=== PATIENT | male | born 1955 | race Caucasian/White ===

== ENCOUNTER 2017-12-23 16:23 | Emergency (ER) | payer MEDICAID ==
[~2017-12-23] VITALS: Ht 175.3 cm; Wt 97.7 kg
[~2017-12-23 16:23] MED LIST: CITA40TA22 PO; CYCL-1 PO; GABA-532 PO; HYDR-3965 PO; LISI1TAB13 PO; LOVA20TA2 PO; METF10002 PO; METH4TAB3 PO; METH500T PO; RANI-366 PO
[2017-12-23] MEDS ORDERED: ketorolac trometh. 30mg/ml inj. IM ONE (16:45)
[2017-12-23 17:44] VITALS: BP 175/100
== END 2017-12-23 17:30 | disposition home or self-care (01) ==
LOC: ER 16:23
DX: M54.5 Low back pain (principal); E78.00 Pure hypercholesterolemia, unspecified; M19.90 Unspecified osteoarthritis, unspecified site; G89.29 Other chronic pain; Z98.890 Other specified postprocedural states; Z79.899 Other long term (current) drug therapy
CPT/HCPCS: 96372; 99283; J1885

== ENCOUNTER 2017-12-26 21:10 | Emergency (ER) | payer MEDICAID ==
[~2017-12-26] VITALS: Ht 175.3 cm; Wt 90.5 kg
[2017-12-26 21:45] LABS: BASOPHILS % (AUTO) 0.3 % (0-1); EOSINOPHILS # (AUTO) 0.1 X10'3 (0-0.9); EOSINOPHILS % (AUTO) 1.9 % (0-6); HEMATOCRIT 25.3 % (42.0-52.0); HEMOGLOBIN 7.7 g/dl (14.0-17.9); LYMPHOCYTES # (AUTO) 1.6 X10'3 (1.1-4.8); LYMPHOCYTES % (AUTO) 24.9 % (21-51); MEAN CORPUSCULAR HEMOGLOBIN 19.1 PG (27.0-31.0); MEAN CORPUSCULAR HGB CONC 30.3 % (33.0-36.5); MEAN CORPUSCULAR VOLUME 63.1 FL (78-98); MEAN PLATELET VOLUME 7.4 FL (7.4-10.4); MONOCYTES # (AUTO) 0.3 X10'3 (0-0.9); MONOCYTES % (AUTO) 5.2 % (2-12); NEUTROPHILS # (AUTO) 4.4 X10'3 (1.8-7.7); NEUTROPHILS % (AUTO) 67.7 % (42-75); PLATELET COUNT 254 X10'3 (140-440); RED BLOOD COUNT 4.01 X10'6 (4.70-6.10); RED CELL DISTRIBUTION WIDTH 19.5 % (11.5-14.5); WHITE BLOOD COUNT 6.5 X10'3 (4.5-11.0)
[2017-12-26 21:57] LABS: INR 1.1 INR
[2017-12-26 22:01] LABS: ALANINE AMINOTRANSFERASE 17 U/L (12-78); ALBUMIN 3.5 G/DL (3.4-5.0); ALBUMIN/GLOBULIN RATIO 0.9 (1.1-1.5); ALKALINE PHOSPHATASE 92 IU/L (46-116); ANION GAP 11 (8-16); ASPARTATE AMINO TRANSFERASE 8 U/L (10-37); BILIRUBIN,TOTAL 0.4 MG/DL (0.1-1.0); BLOOD UREA NITROGEN 13 MG/DL (7-18); CALCIUM 8.6 MG/DL (8.5-10.1); CHLORIDE 102 MMOL/L (99-107); CREATININE 0.81 MG/DL (0.60-1.10); GLUCOSE 118 MG/DL (70-104); POTASSIUM 4.1 MMOL/L (3.5-5.1); SODIUM 138 MMOL/L (135-145); TOTAL CARBON DIOXIDE 25.2 MMOL/L (24-32); TOTAL PROTEIN 7.3 G/DL (6.4-8.2); eGFR > 90 ML/MIN
[2017-12-26 22:32] LABS: PLATELET ESTIMATE NORMAL
[2017-12-26 22:34] LABS: ANISOCYTOSIS 2+; ELLIPTOCYTES 1+; HYPOCHROMASIA 2+; MICROCYTOSIS 2+; POLYCHROMASIA FEW
[2017-12-26 23:08] LABS: GLUCOSE, URINE NEGATIVE (Neg); KETONES,URINE 15 mg/dl (Neg); LEUKOCYTE ESTERASE ,URINE NEGATIVE (Neg); NITRITES, URINE NEGATIVE (Neg); OCCULT BLOOD,URINE NEGATIVE (Neg); PH,URINE 5.5 (4.8-8.0); PROTEIN,URINE TRACE mg/dl (Neg)
[2017-12-26 23:09] LABS: CLARITY,URINE SLIGHTLY CLOUDY (Clear); UA COLLECTION TYPE CLN CATCH MIDSTREAM
[2017-12-26 23:10] LABS: COLOR,URINE DARK YELLOW (Yellow)
[2017-12-26 23:27] LABS: BACTERIA,URINE NONE SEEN /HPF (Neg); MUCUS STRANDS MANY /LPF (Neg); RBC,URINE NONE SEEN /HPF (0-2); SQUAMOUS EPITHELIAL CELL,UR FEW /LPF (FEW); WBC,URINE 0-4 /HPF (0-4)
[2017-12-27] MEDS ORDERED: ondansetron 4mg rapidly disintigrating tab PO ONE (00:20)
[2017-12-27] MEDS ORDERED: HYDROmorphone 2mg tablet PO ONE (00:20)
[2017-12-27] MEDS ORDERED: ONDA8TAB6 PO (00:25)
[2017-12-27 00:44] VITALS: BP 191/105
== END 2017-12-27 00:46 | disposition home or self-care (01) ==
LOC: ER 21:10
DX: M54.5 Low back pain (principal); G89.29 Other chronic pain; D64.9 Anemia, unspecified; R11.2 Nausea with vomiting, unspecified; E78.00 Pure hypercholesterolemia, unspecified; M19.90 Unspecified osteoarthritis, unspecified site; Z79.82 Long term (current) use of aspirin; Z79.899 Other long term (current) drug therapy
CPT/HCPCS: 36415; 80053; 81001; 85025; 85610; 99284

== ENCOUNTER 2017-12-30 21:52 | Emergency (ER) | payer MEDICAID ==
[~2017-12-30] VITALS: Ht 175.3 cm; Wt 104.5 kg
[~2017-12-30 21:52] MED LIST changes: +ONDA8TAB6 PO
[2017-12-30 23:04] LABS: BASOPHILS % (AUTO) 0.1 % (0-1); EOSINOPHILS # (AUTO) 0.2 X10'3 (0-0.9); EOSINOPHILS % (AUTO) 2.6 % (0-6); HEMATOCRIT 25.7 % (42.0-52.0); HEMOGLOBIN 7.8 g/dl (14.0-17.9); LYMPHOCYTES # (AUTO) 1.9 X10'3 (1.1-4.8); LYMPHOCYTES % (AUTO) 24.6 % (21-51); MEAN CORPUSCULAR HEMOGLOBIN 19.1 PG (27.0-31.0); MEAN CORPUSCULAR HGB CONC 30.2 % (33.0-36.5); MEAN CORPUSCULAR VOLUME 63.2 FL (78-98); MEAN PLATELET VOLUME 7.8 FL (7.4-10.4); MONOCYTES # (AUTO) 0.5 X10'3 (0-0.9); MONOCYTES % (AUTO) 6.8 % (2-12); NEUTROPHILS # (AUTO) 5.1 X10'3 (1.8-7.7); NEUTROPHILS % (AUTO) 65.9 % (42-75); PLATELET COUNT 256 X10'3 (140-440); RED BLOOD COUNT 4.07 X10'6 (4.70-6.10); RED CELL DISTRIBUTION WIDTH 19.9 % (11.5-14.5); WHITE BLOOD COUNT 7.8 X10'3 (4.5-11.0)
[2017-12-30] MEDS ORDERED: ketorolac tromethamine 15mg/ml inj. IV ONE (23:15)
[2017-12-30] MEDS ORDERED: diazepam 5mg tablet PO ONE (23:15)
[2017-12-30 23:46] VITALS: BP 182/98
[2017-12-31 02:33] LABS: PLATELET ESTIMATE NORMAL
[2017-12-31 02:34] LABS: ANISOCYTOSIS 2+; MICROCYTOSIS 2+
[2017-12-31 02:35] LABS: ELLIPTOCYTES 1+; HYPOCHROMASIA 1+
== END 2017-12-30 23:56 | disposition home or self-care (01) ==
LOC: ER 21:53
DX: G89.29 Other chronic pain (principal); M54.5 Low back pain; D64.9 Anemia, unspecified; E78.00 Pure hypercholesterolemia, unspecified; M19.90 Unspecified osteoarthritis, unspecified site; Z98.890 Other specified postprocedural states; Z98.84 Bariatric surgery status; Z79.899 Other long term (current) drug therapy
CPT/HCPCS: 36415; 85025; 96374; 99284; J1885

== ENCOUNTER 2018-01-06 00:28 | Emergency (ER) | payer MEDICAID ==
[~2018-01-06] VITALS: Ht 175.3 cm; Wt 115.0 kg
[2018-01-06 00:34] VITALS: BP 126/102
== END 2018-01-06 01:37 | disposition home or self-care (01) ==
LOC: ER 00:28
DX: G89.29 Other chronic pain (principal); M54.5 Low back pain; E78.00 Pure hypercholesterolemia, unspecified; M19.90 Unspecified osteoarthritis, unspecified site; E11.9 Type 2 diabetes mellitus without complications; Z98.84 Bariatric surgery status; Z79.84 Long term (current) use of oral hypoglycemic drugs; Z79.899 Other long term (current) drug therapy
CPT/HCPCS: 99283

== ENCOUNTER 2018-01-11 22:00 | Emergency (ER) | payer MEDICAID ==
[~2018-01-11] VITALS: Ht 175.3 cm; Wt 107.0 kg
[2018-01-11] MEDS ORDERED: ondansetron 4mg rapidly disintigrating tab PO ONE (22:45)
[2018-01-11] MEDS ORDERED: morphine 4 MG/ML inj SYRINge IM ONE (22:45)
[2018-01-11] MEDS ORDERED: hydrALAZINE 20mg/ml inj. IV ONE (23:25)
[2018-01-11] MEDS ORDERED: morphine 4 MG/ML inj SYRINge IV ONE (23:25)
[2018-01-11] MEDS ORDERED: cyclobenzaprine 10mg tablet PO ONE (23:25)
[2018-01-11 23:54] VITALS: BP 194/103
[2018-01-12] MEDS ORDERED: ketorolac trometh. 30mg/ml inj. IV ONE (00:10)
== END 2018-01-12 00:16 | disposition home or self-care (01) ==
LOC: ER 22:00
DX: S39.012A Strain of muscle, fascia and tendon of lower back, initial encounter (principal); I15.8 Other secondary hypertension; G89.29 Other chronic pain; E78.00 Pure hypercholesterolemia, unspecified; M19.90 Unspecified osteoarthritis, unspecified site; Z79.84 Long term (current) use of oral hypoglycemic drugs; Z79.899 Other long term (current) drug therapy; X58.XXXA Exposure to other specified factors, initial encounter; Y93.89 Activity, other specified; Y92.89 Other specified places as the place of occurrence of the external cause; Y99.8 Other external cause status
CPT/HCPCS: 72074; 72100; 96372; 96374; 96375; 99284; J0360; J1885; J2270

== ENCOUNTER 2018-01-21 03:25 | Inpatient (IN) | payer MEDICAID ==
[2018-01-21] VITALS (28 sets, daily range): BP systolic 90–166; BP diastolic 48–92
[~2018-01-21] VITALS: Ht 175.3 cm; Wt 101.0 kg
[2018-01-21 04:06] LABS: BASOPHILS % (AUTO) 0.5 % (0-1); EOSINOPHILS # (AUTO) 0.1 X10'3 (0-0.9); EOSINOPHILS % (AUTO) 1.8 % (0-6); LYMPHOCYTES # (AUTO) 1.4 X10'3 (1.1-4.8); MEAN CORPUSCULAR HEMOGLOBIN 19.1 PG (27.0-31.0); MEAN CORPUSCULAR HGB CONC 29.6 % (33.0-36.5); MEAN CORPUSCULAR VOLUME 64.5 FL (78-98); MEAN PLATELET VOLUME 7.8 FL (7.4-10.4); MONOCYTES # (AUTO) 0.4 X10'3 (0-0.9); MONOCYTES % (AUTO) 5.2 % (2-12); NEUTROPHILS # (AUTO) 6.1 X10'3 (1.8-7.7); NEUTROPHILS % (AUTO) 75.5 % (42-75); PLATELET COUNT 365 X10'3 (140-440); RED BLOOD COUNT 1.93 X10'6 (4.70-6.10); RED CELL DISTRIBUTION WIDTH 21.3 % (11.5-14.5); WHITE BLOOD COUNT 8.1 X10'3 (4.5-11.0)
[2018-01-21 04:21] LABS: HEMATOCRIT 12.4 % (42.0-52.0); HEMOGLOBIN 3.7 g/dl (14.0-17.9)
[2018-01-21 04:24] LABS: ALANINE AMINOTRANSFERASE 15 U/L (12-78); ALBUMIN 2.8 G/DL (3.4-5.0); ALBUMIN/GLOBULIN RATIO 0.9 (1.1-1.5); ALKALINE PHOSPHATASE 54 IU/L (46-116); ANION GAP 12 (8-16); ASPARTATE AMINO TRANSFERASE 7 U/L (10-37); BILIRUBIN,TOTAL 0.5 MG/DL (0.1-1.0); BLOOD UREA NITROGEN 32 MG/DL (7-18); CALCIUM 8.1 MG/DL (8.5-10.1); CHLORIDE 101 MMOL/L (99-107); CREATININE 1.28 MG/DL (0.60-1.10); ETHANOL < 0.010 GM/DL (0.0-0.010); GLUCOSE 193 MG/DL (70-104); SODIUM 136 MMOL/L (135-145); eGFR 57 ML/MIN
[2018-01-21 04:29] LABS: CLARITY,URINE Cloudy (Clear); COLOR,URINE Yellow (Yellow); GLUCOSE, URINE Negative (Neg); KETONES,URINE Trace mg/dl (Neg); LEUKOCYTE ESTERASE ,URINE Negative (Neg); NITRITES, URINE Negative (Neg); OCCULT BLOOD,URINE Negative (Neg); PROTEIN,URINE Negative (Neg)
[2018-01-21 04:42] LABS: UA COLLECTION TYPE CLN CATCH MIDSTREAM
[2018-01-21 04:43] LABS: BACTERIA,URINE FEW /HPF (Neg); MUCUS STRANDS FEW /LPF (Neg); RBC,URINE 0-2 /HPF (0-2); SQUAMOUS EPITHELIAL CELL,UR FEW /LPF (FEW)
[2018-01-21 04:44] LABS: URINE AMPHETAMINE SCREEN NEGATIVE (Neg); URINE BARBITUATE SCREEN NEGATIVE (Neg); URINE BENZODIAZEPINES SCREEN POSITIVE (Neg); URINE CANNABINOID SCREEN NEGATIVE (Neg); URINE COCAINE SCREEN NEGATIVE (Neg); URINE METHADONE SCREEN NEGATIVE (Neg); URINE OPIATE SCREEN NEGATIVE (Neg); URINE PHENCYCLIDINE SCREEN NEGATIVE (Neg)
[2018-01-21] MEDS ORDERED: iohexol 300mg/ml 100ml inj. ONE (04:51)
[2018-01-21 04:59] LABS: OCCULT BLOOD STOOL POSITIVE (Neg)
[2018-01-21 05:09] LABS: ANISOCYTOSIS 3+; HYPOCHROMASIA 1+; MICROCYTOSIS 2+; PLATELET ESTIMATE NORMAL
[2018-01-21 05:10] LABS: ELLIPTOCYTES 1+; POLYCHROMASIA 1+
[2018-01-21] MEDS ORDERED: glucagon, human recombinant 1mg kit SUBCUT PRN (06:00)
[2018-01-21] MEDS ORDERED: ondansetron/PF 4mg/2ml inj IV PRN (06:00)
[2018-01-21] MEDS ORDERED: MESSAGE TO PHARMACY PO ONE (06:00)
[2018-01-21] MEDS ORDERED: insulin Lispro (HumaLOG) vial - multi-dose SQ SCH (06:00)
[2018-01-21] MEDS ORDERED: dextrose 50%-water 50ml dispensing syringe IV PRN ×2 (06:00)
[2018-01-21] MEDS ORDERED: morphine 4 MG/ML inj SYRINge IV PRN (06:00)
[2018-01-21] MEDS ORDERED: potassium Cl 40MEQ/NS 500ml 500 ML IV PRN ×2 (06:00)
[2018-01-21] MEDS ORDERED: dextrose ORAL solution 15 GM/59 ML bottle PO PRN ×2 (06:00)
[2018-01-21] MEDS ORDERED: potassium Cl 20 mEq SR tablet PO PRN ×2 (06:00)
[2018-01-21] MEDS ORDERED: furosemide 10 MG/1 ML 10ml inj IV ONE (06:05)
[2018-01-21 06:37] LABS: INR 1.2 INR
[2018-01-21] MEDS: normal saline 1000ml 1,000 ML IV SCH (07:16)
[2018-01-21] MEDS: pantoprazole 40MG/NS 100ML BAG 100 ML IV SCH ×4 (07:30→20:04)
[2018-01-21] MEDS: K and/or MAG REPLACEMENT MC SCH (07:57)
[2018-01-21 09:52] LABS: % IRON SATURATION 4 % (11-46); IRON 16 UG/DL (53-167); TOTAL IRON BINDING CAPACITY 441 UG/DL (259-388)
[2018-01-21 10:17] LABS: FERRITIN 4 NG/ML (26-388)
[2018-01-21] MEDS: MESSAGE TO NURSING PO NR (10:47)
[2018-01-21] MEDS ORDERED: MIDAZolam 5mg/5ml vial ONE (10:47)
[2018-01-21] MEDS ORDERED: fentaNYL/PF 50MCG/1 ML 2ML syringe ONE (10:47)
[2018-01-21] MEDS ORDERED: LIDOcaine Viscous 15ml cup ONE (10:48)
[2018-01-21 12:42] LABS: BASOPHILS # (AUTO) 0.2 X10'3 (0-0.2); BASOPHILS % (AUTO) 2.6 % (0-1); EOSINOPHILS % (AUTO) 0.4 % (0-6); LYMPHOCYTES # (AUTO) 1.5 X10'3 (1.1-4.8); LYMPHOCYTES % (AUTO) 24.1 % (21-51); MEAN CORPUSCULAR HEMOGLOBIN 22.4 PG (27.0-31.0); MEAN CORPUSCULAR HGB CONC 31.3 % (33.0-36.5); MEAN CORPUSCULAR VOLUME 71.6 FL (78-98); MEAN PLATELET VOLUME 7.8 FL (7.4-10.4); MONOCYTES # (AUTO) 0.4 X10'3 (0-0.9); MONOCYTES % (AUTO) 5.8 % (2-12); NEUTROPHILS # (AUTO) 4.2 X10'3 (1.8-7.7); NEUTROPHILS % (AUTO) 67.1 % (42-75); PLATELET COUNT 345 X10'3 (140-440); RED BLOOD COUNT 2.51 X10'6 (4.70-6.10); RED CELL DISTRIBUTION WIDTH 26.8 % (11.5-14.5); WHITE BLOOD COUNT 6.3 X10'3 (4.5-11.0)
[2018-01-21 12:47] LABS: HEMOGLOBIN 5.6 g/dl (14.0-17.9)
[2018-01-21 13:10] LABS: ANISOCYTOSIS 3+; ELLIPTOCYTES 1+; HYPOCHROMASIA 1+; MICROCYTOSIS 2+; PLATELET ESTIMATE NORMAL; POLYCHROMASIA 1+; TOTAL CELLS COUNTED 100
[2018-01-21 13:11] LABS: LARGE PLATELETS FEW; SCHISTOCYTES 6
[2018-01-21] MEDS: sucralfate 1gm/10ml UD suspension PO SCH (19:28)
[2018-01-21] MEDS: insulin glargine (Lantus) pen - multi-dose SQ SCH (21:00)
[2018-01-22] VITALS (8 sets, daily range): BP systolic 149–169; BP diastolic 73–99
[2018-01-22] MEDS: pantoprazole 40MG/NS 100ML BAG 100 ML IV SCH ×5 (01:32→21:02)
[2018-01-22] MEDS: sucralfate 1gm/10ml UD suspension PO SCH ×5 (01:32→21:02)
[2018-01-22] MEDS: normal saline 1000ml 1,000 ML IV SCH ×2 (01:33→12:15)
[2018-01-22 05:04] LABS: BASOPHILS # (AUTO) 0.1 X10'3 (0-0.2); BASOPHILS % (AUTO) 1.7 % (0-1); EOSINOPHILS # (AUTO) 0.1 X10'3 (0-0.9); EOSINOPHILS % (AUTO) 1.5 % (0-6); HEMATOCRIT 25.6 % (42.0-52.0); HEMOGLOBIN 8.3 g/dl (14.0-17.9); LYMPHOCYTES # (AUTO) 2.1 X10'3 (1.1-4.8); LYMPHOCYTES % (AUTO) 34.5 % (21-51); MEAN CORPUSCULAR HEMOGLOBIN 24.9 PG (27.0-31.0); MEAN CORPUSCULAR HGB CONC 32.6 % (33.0-36.5); MEAN CORPUSCULAR VOLUME 76.6 FL (78-98); MEAN PLATELET VOLUME 7.9 FL (7.4-10.4); MONOCYTES # (AUTO) 0.3 X10'3 (0-0.9); MONOCYTES % (AUTO) 5.5 % (2-12); NEUTROPHILS # (AUTO) 3.4 X10'3 (1.8-7.7); NEUTROPHILS % (AUTO) 56.8 % (42-75); PLATELET COUNT 298 X10'3 (140-440); RED BLOOD COUNT 3.34 X10'6 (4.70-6.10); RED CELL DISTRIBUTION WIDTH 24.1 % (11.5-14.5)
[2018-01-22 05:22] LABS: ALBUMIN 2.8 G/DL (3.4-5.0); ANION GAP 10 (8-16); BLOOD UREA NITROGEN 19 MG/DL (7-18); BUN/CREATININE RATIO 20.2 (5.4-32.0); CALCIUM 8.1 MG/DL (8.5-10.1); CHLORIDE 104 MMOL/L (99-107); CREATININE 0.94 MG/DL (0.60-1.10); GLUCOSE 101 MG/DL (70-104); POTASSIUM 4.1 MMOL/L (3.5-5.1); SODIUM 141 MMOL/L (135-145); eGFR 81 ML/MIN
[2018-01-22] MEDS: K and/or MAG REPLACEMENT MC SCH (08:00)
[2018-01-22] MEDS: MESSAGE TO NURSING PO NR (10:00)
[2018-01-22] MEDS ORDERED: TIZA2TAB4 (15:48)
[2018-01-22] MEDS: insulin glargine (Lantus) pen - multi-dose SQ SCH (21:00)
[2018-01-22] MEDS ORDERED: non-formulary drug (Ondansetron Hcl (Zofran) 8 MG) PO PRN (21:25)
[2018-01-22] MEDS ORDERED: ondansetron 4mg rapidly disintigrating tab PO PRN (21:30)
[2018-01-23] MEDS: normal saline 1000ml 1,000 ML IV SCH ×2 (02:14→15:50)
[2018-01-23] MEDS: pantoprazole 40MG/NS 100ML BAG 100 ML IV SCH ×4 (02:15→15:50)
[2018-01-23 02:30] VITALS: BP 172/95
[2018-01-23 05:07] LABS: HEMOGLOBIN A1C 5.5 % (4.5-6.2)
[2018-01-23 05:16] LABS: BASOPHILS % (AUTO) 0.6 % (0-1); EOSINOPHILS # (AUTO) 0.2 X10'3 (0-0.9); EOSINOPHILS % (AUTO) 3.3 % (0-6); HEMATOCRIT 27.6 % (42.0-52.0); HEMOGLOBIN 9.1 g/dl (14.0-17.9); LYMPHOCYTES # (AUTO) 2.1 X10'3 (1.1-4.8); MEAN CORPUSCULAR HEMOGLOBIN 24.8 PG (27.0-31.0); MEAN CORPUSCULAR HGB CONC 32.7 % (33.0-36.5); MEAN CORPUSCULAR VOLUME 75.8 FL (78-98); MEAN PLATELET VOLUME 7.8 FL (7.4-10.4); MONOCYTES # (AUTO) 0.4 X10'3 (0-0.9); MONOCYTES % (AUTO) 6.3 % (2-12); NEUTROPHILS # (AUTO) 3.5 X10'3 (1.8-7.7); NEUTROPHILS % (AUTO) 55.8 % (42-75); PLATELET COUNT 346 X10'3 (140-440); RED BLOOD COUNT 3.65 X10'6 (4.70-6.10); RED CELL DISTRIBUTION WIDTH 24.4 % (11.5-14.5); WHITE BLOOD COUNT 6.2 X10'3 (4.5-11.0)
[2018-01-23 05:30] LABS: ANION GAP 10 (8-16); BLOOD UREA NITROGEN 6 MG/DL (7-18); BUN/CREATININE RATIO 6.5 (5.4-32.0); CALCIUM 8.5 MG/DL (8.5-10.1); CHLORIDE 106 MMOL/L (99-107); CREATININE 0.93 MG/DL (0.60-1.10); GLUCOSE 94 MG/DL (70-104); POTASSIUM 3.6 MMOL/L (3.5-5.1); SODIUM 141 MMOL/L (135-145); eGFR 82 ML/MIN
[2018-01-23 06:00] VITALS: BP 177/81
[2018-01-23] MEDS: sucralfate 1gm/10ml UD suspension PO SCH ×4 (07:07→20:27)
[2018-01-23] MEDS: citalopram 20mg tablet PO SCH (07:31)
[2018-01-23] MEDS: atorvastatin 10mg tablet PO SCH (07:31)
[2018-01-23] MEDS: HYDROchlorothiazide 25mg tablet PO SCH (07:31)
[2018-01-23] MEDS: lisinopril 20mg tablet PO SCH (07:31)
[2018-01-23] MEDS: gabapentin 300mg capsule PO SCH ×2 (07:31→20:27)
[2018-01-23] MEDS: K and/or MAG REPLACEMENT MC SCH (07:34)
[2018-01-23] MEDS ORDERED: [UNRECOGNIZED DRUG - OTHER] PO SCH (08:00)
[2018-01-23] MEDS ORDERED: LOVASTATIN PO SCH (08:00)
[2018-01-23] MEDS ORDERED: HYDROCHLOROTHIAZIDE PO SCH (08:00)
[2018-01-23] MEDS ORDERED: LISINOPRIL PO SCH (08:00)
[2018-01-23] MEDS ORDERED: CITALOPRAM HYDROBROMIDE PO SCH (08:00)
[2018-01-23 11:00] VITALS: BP 168/105
[2018-01-23] MEDS ORDERED: furosemide 20 MG/2 ML vial IV ONE (12:05)
[2018-01-23] MEDS: amLODIPine 2.5mg tablet PO SCH (12:29)
[2018-01-23 15:00] VITALS: BP 182/98
[2018-01-23 18:00] VITALS: BP 162/97
[2018-01-23] MEDS: insulin glargine (Lantus) pen - multi-dose SQ SCH (21:00)
[2018-01-23 22:00] VITALS: BP 162/90
[2018-01-24 02:00] VITALS: BP 170/96
[2018-01-24 05:30] VITALS: BP 156/94
[2018-01-24 05:30] LABS: BASOPHILS % (AUTO) 0.6 % (0-1); EOSINOPHILS # (AUTO) 0.1 X10'3 (0-0.9); EOSINOPHILS % (AUTO) 2.7 % (0-6); HEMATOCRIT 27.5 % (42.0-52.0); HEMOGLOBIN 9.1 g/dl (14.0-17.9); LYMPHOCYTES # (AUTO) 1.8 X10'3 (1.1-4.8); LYMPHOCYTES % (AUTO) 34.7 % (21-51); MEAN CORPUSCULAR HEMOGLOBIN 24.9 PG (27.0-31.0); MEAN CORPUSCULAR VOLUME 75.4 FL (78-98); MEAN PLATELET VOLUME 7.9 FL (7.4-10.4); MONOCYTES # (AUTO) 0.4 X10'3 (0-0.9); MONOCYTES % (AUTO) 7.7 % (2-12); NEUTROPHILS # (AUTO) 2.8 X10'3 (1.8-7.7); NEUTROPHILS % (AUTO) 54.3 % (42-75); PLATELET COUNT 316 X10'3 (140-440); RED BLOOD COUNT 3.65 X10'6 (4.70-6.10); RED CELL DISTRIBUTION WIDTH 24.9 % (11.5-14.5); WHITE BLOOD COUNT 5.1 X10'3 (4.5-11.0)
[2018-01-24] MEDS: normal saline 1000ml 1,000 ML IV SCH (05:39)
[2018-01-24 05:47] LABS: ALBUMIN 2.8 G/DL (3.4-5.0); ANION GAP 8 (8-16); BLOOD UREA NITROGEN 4 MG/DL (7-18); BUN/CREATININE RATIO 4.2 (5.4-32.0); CALCIUM 8.3 MG/DL (8.5-10.1); CHLORIDE 106 MMOL/L (99-107); CREATININE 0.96 MG/DL (0.60-1.10); GLUCOSE 96 MG/DL (70-104); POTASSIUM 3.6 MMOL/L (3.5-5.1); SODIUM 142 MMOL/L (135-145); TOTAL CARBON DIOXIDE 27.9 MMOL/L (24-32); eGFR 79 ML/MIN
[2018-01-24] MEDS: sucralfate 1gm/10ml UD suspension PO SCH ×3 (07:51→16:00)
[2018-01-24] MEDS: lisinopril 20mg tablet PO SCH (07:51)
[2018-01-24] MEDS: gabapentin 300mg capsule PO SCH (07:51)
[2018-01-24] MEDS: atorvastatin 10mg tablet PO SCH (07:51)
[2018-01-24] MEDS: pantoprazole 40mg Tablet.DR PO SCH ×2 (07:52→16:58)
[2018-01-24] MEDS: HYDROchlorothiazide 25mg tablet PO SCH (07:52)
[2018-01-24] MEDS: citalopram 20mg tablet PO SCH (07:52)
[2018-01-24] MEDS: amLODIPine 2.5mg tablet PO SCH (07:52)
[2018-01-24] MEDS: K and/or MAG REPLACEMENT MC SCH (08:00)
[2018-01-24 11:00] VITALS: BP 152/97
[2018-01-24 15:00] VITALS: BP 157/91
[2018-01-24] MEDS ORDERED: PANT40TA4 PO (15:04)
[2018-01-24] MEDS ORDERED: SUCR1TAB34 PO (15:04)
[2018-01-24] MEDS ORDERED: AMLO5TAB PO (15:04)
== END 2018-01-24 17:15 | disposition home or self-care (01) | DRG 241 ==
LOC: ER 03:25 → ED HOLD 05:59 → PCU 3S 13:38
PROVIDERS: ADMIT Family Medicine; ATTEND Family Medicine
PROC: 0DB58ZX Excision of Esophagus, Via Natural or Artificial Opening Endoscopic, Diagnostic (ICD-10-PCS; principal; 2018-01-21)
PROC: 30233N1 Transfusion of Nonautologous Red Blood Cells into Peripheral Vein, Percutaneous Approach (ICD-10-PCS; 2018-01-21)
PROC: BW211ZZ Computerized Tomography (CT Scan) of Abdomen and Pelvis using Low Osmolar Contrast (ICD-10-PCS; 2018-01-21)
DX: K25.4 Chronic or unspecified gastric ulcer with hemorrhage (principal); G93.40 Encephalopathy, unspecified; N17.9 Acute kidney failure, unspecified; D62 Acute posthemorrhagic anemia; I10 Essential (primary) hypertension; M19.90 Unspecified osteoarthritis, unspecified site; M54.9 Dorsalgia, unspecified; R44.3 Hallucinations, unspecified; E11.9 Type 2 diabetes mellitus without complications; E78.00 Pure hypercholesterolemia, unspecified; E78.5 Hyperlipidemia, unspecified; G89.29 Other chronic pain; T39.395A Adverse effect of other nonsteroidal anti-inflammatory drugs [NSAID], initial encounter; T42.8X1A Poisoning by antiparkinsonism drugs and other central muscle-tone depressants, accidental (unintentional), initial encounter; Z79.84 Long term (current) use of oral hypoglycemic drugs; Z79.899 Other long term (current) drug therapy; Z83.3 Family history of diabetes mellitus; Z98.84 Bariatric surgery status
CPT/HCPCS: 36415; 43239; 70450; 74177; 80048; 80053; 80305; 80320; 81001; 82272; 82728; 82948; 83036; 83540; 83550; 84466; 84484; 85025; 85610; 86885; 86900; 86901; 86920; 87070; 87088; 93005; 99285; A4353; A4620; C9113; G0500; J1815; J1940; J2250; J3010; J7030; P9016; Q9967

== ENCOUNTER 2018-03-13 11:13 | Emergency (ER) | payer MEDICAID ==
[~2018-03-13] VITALS: Ht 175.3 cm; Wt 98.0 kg
[~2018-03-13 11:13] MED LIST changes: +AMLO5TAB PO; -CYCL-1 PO; -HYDR-3965 PO; -METF10002 PO; +METF10004 PO; -METH4TAB3 PO; -METH500T PO; +PANT40TA4 PO; -RANI-366 PO; +SUCR1TAB34 PO; +TIZA2TAB4
[2018-03-13 12:06] LABS: BASOPHILS % (AUTO) 0.1 % (0-1); EOSINOPHILS % (AUTO) 0.4 % (0-6); HEMATOCRIT 36.4 % (42.0-52.0); HEMOGLOBIN 11.6 g/dl (14.0-17.9); LYMPHOCYTES # (AUTO) 1.1 X10'3 (1.1-4.8); LYMPHOCYTES % (AUTO) 10.4 % (21-51); MEAN CORPUSCULAR HEMOGLOBIN 23.2 PG (27.0-31.0); MEAN CORPUSCULAR HGB CONC 31.9 % (33.0-36.5); MEAN CORPUSCULAR VOLUME 72.7 FL (78-98); MEAN PLATELET VOLUME 8.2 FL (7.4-10.4); MONOCYTES # (AUTO) 0.5 X10'3 (0-0.9); MONOCYTES % (AUTO) 4.7 % (2-12); NEUTROPHILS # (AUTO) 8.8 X10'3 (1.8-7.7); NEUTROPHILS % (AUTO) 84.4 % (42-75); PLATELET COUNT 350 X10'3 (140-440); RED BLOOD COUNT 5.01 X10'6 (4.70-6.10); RED CELL DISTRIBUTION WIDTH 21.2 % (11.5-14.5); WHITE BLOOD COUNT 10.4 X10'3 (4.5-11.0)
[2018-03-13 12:16] LABS: INR 1.1 INR; PARTIAL THROMBOPLASTIN TIME 25 SECONDS (22-32); PROTHROMBIN TIME 11.2 SECONDS (9.0-12.0)
[2018-03-13 12:21] LABS: ALANINE AMINOTRANSFERASE 16 U/L (12-78); ALBUMIN 4.5 G/DL (3.4-5.0); ALKALINE PHOSPHATASE 94 IU/L (46-116); ANION GAP 15 (8-16); ASPARTATE AMINO TRANSFERASE 11 U/L (10-37); BILIRUBIN,TOTAL 0.9 MG/DL (0.1-1.0); BLOOD UREA NITROGEN 18 MG/DL (7-18); BUN/CREATININE RATIO 19.8 (5.4-32.0); CALCIUM 9.1 MG/DL (8.5-10.1); CHLORIDE 98 MMOL/L (99-107); CREATININE 0.91 MG/DL (0.60-1.10); GLUCOSE 143 MG/DL (70-104); POTASSIUM 3.6 MMOL/L (3.5-5.1); SODIUM 135 MMOL/L (135-145); TOTAL CARBON DIOXIDE 22.5 MMOL/L (24-32); TOTAL PROTEIN 8.8 G/DL (6.4-8.2); eGFR 84 ML/MIN
[2018-03-13 12:29] LABS: LARGE PLATELETS FEW; PLATELET ESTIMATE NORMAL
[2018-03-13] MEDS ORDERED: ondansetron/PF 4mg/2ml inj IV ONE (13:00)
[2018-03-13] MEDS ORDERED: normal saline 1000ML IV soln IVB ONE (13:00)
[2018-03-13 13:58] LABS: LIPASE 69 U/L (73-393)
[2018-03-13] MEDS ORDERED: ONDA4TAB9 PO (14:44)
[2018-03-13 15:07] VITALS: BP 170/100
== END 2018-03-13 15:09 | disposition home or self-care (01) ==
LOC: ER 11:13
DX: K29.00 Acute gastritis without bleeding (principal); R10.10 Upper abdominal pain, unspecified; R11.0 Nausea; I10 Essential (primary) hypertension; G89.29 Other chronic pain; E78.00 Pure hypercholesterolemia, unspecified; Z90.49 Acquired absence of other specified parts of digestive tract; Z79.84 Long term (current) use of oral hypoglycemic drugs; Z79.899 Other long term (current) drug therapy
CPT/HCPCS: 36415; 71045; 74176; 80053; 83690; 84484; 85025; 85610; 85730; 93005; 96374; 99285; J2405; J7030

== ENCOUNTER 2018-03-31 21:00 | Inpatient (IN) | payer MEDICAID ==
[~2018-03-31] VITALS: Ht 188 cm; Wt 114.9 kg
[~2018-03-31 21:00] MED LIST changes: +ONDA4TAB9 PO; -TIZA2TAB4; +TIZA2TAB4 PO; +atropine 0.1mg/ml 10ml syringe ONE; +epiNEPHrine 0.1mg/ml 10ml syringe ONE; +etomidate 2mg/ml inj. ONE; +rocuronium 10mg/ml inj IV ONE; +sodium bicarbonate (8.4%) 1 mEq/ml syringe ONE
[2018-03-31] MEDS ORDERED: iohexol 350MG/ML 100ml bottle IV ONE (21:12)
[2018-03-31 21:24] LABS: BASOPHILS % (AUTO) 0.3 % (0-1); EOSINOPHILS # (AUTO) 0.1 X10'3 (0-0.9); EOSINOPHILS % (AUTO) 0.7 % (0-6); LYMPHOCYTES # (AUTO) 4.7 X10'3 (1.1-4.8); LYMPHOCYTES % (AUTO) 59.2 % (21-51); MEAN CORPUSCULAR HEMOGLOBIN 23.3 PG (27.0-31.0); MEAN CORPUSCULAR HGB CONC 30.2 % (33.0-36.5); MEAN CORPUSCULAR VOLUME 77.2 FL (78-98); MEAN PLATELET VOLUME 8.6 FL (7.4-10.4); MONOCYTES # (AUTO) 0.2 X10'3 (0-0.9); MONOCYTES % (AUTO) 3.1 % (2-12); NEUTROPHILS # (AUTO) 2.9 X10'3 (1.8-7.7); NEUTROPHILS % (AUTO) 36.7 % (42-75); PLATELET COUNT 348 X10'3 (140-440); RED CELL DISTRIBUTION WIDTH 22.5 % (11.5-14.5)
[2018-03-31] MEDS ORDERED: midazolam 2 mg/2 ml injection ONE (21:26)
[2018-03-31] MEDS ORDERED: heparin 1,000 UNITS/NS 500ml 0 ML ONE (21:27)
[2018-03-31] MEDS ORDERED: heparin 1,000unit/ml 10ml vial 0 ML ONE (21:27)
[2018-03-31] MEDS ORDERED: iohexol 350 MG/1 ML 200ml bottle ONE (21:27)
[2018-03-31] MEDS ORDERED: LIDOcaine 1% w/EPI 1:100,000 30ml vial (MDV) ONE (21:27)
[2018-03-31] MEDS ORDERED: fentaNYL/PF 50MCG/1 ML 2ML syringe ONE (21:27)
[2018-03-31 21:36] LABS: INR 1.1 INR; PARTIAL THROMBOPLASTIN TIME 32 SECONDS (22-32); PROTHROMBIN TIME 11.4 SECONDS (9.0-12.0)
[2018-03-31 21:38] LABS: HEMOGLOBIN 3.7 g/dl (14.0-17.9)
[2018-03-31 21:39] LABS: ALANINE AMINOTRANSFERASE 37 U/L (12-78); ALBUMIN/GLOBULIN RATIO 0.8 (1.1-1.5); ALKALINE PHOSPHATASE 107 IU/L (46-116); ANION GAP 26 (8-16); ASPARTATE AMINO TRANSFERASE 54 U/L (10-37); BILIRUBIN,TOTAL 0.1 MG/DL (0.1-1.0); BLOOD UREA NITROGEN 23 MG/DL (7-18); CALCIUM 7.7 MG/DL (8.5-10.1); CHLORIDE 103 MMOL/L (99-107); CREATININE 1.44 MG/DL (0.60-1.10); GLUCOSE 381 MG/DL (70-104); HEMATOCRIT 12.3 % (42.0-52.0); SODIUM 141 MMOL/L (135-145); TOTAL PROTEIN 4.5 G/DL (6.4-8.2); eGFR 50 ML/MIN
[2018-03-31 21:44] LABS: TOTAL CARBON DIOXIDE 11.7 MMOL/L (24-32)
[2018-03-31 21:51] LABS: ABG HCO3 7.7 mmol/L (22.0-26.0); ABG PCO2 (T) 42.7 mmHg (35.0-48.0); ABG PH (T) 6.873 (7.350-7.450); ABG PO2 (T) 273.4 mmHg (83-108); ALLEN'S TEST Positive; MINUTE VOLUME 9 L/min; PEEP 5 cm H2O; RESPIRATORY RATE 18 b/min; RESPIRATORY RATE (OBSERVED) 18 b/min; TIDAL VOLUME 450 mL; TOTAL HEMOGLOBIN < 4.7 G/dl (14.0-18.0)
[2018-03-31] MEDS ORDERED: sodium bicarbonate (8.4%) 1 mEq/ml syringe IV ONE (22:00)
[2018-03-31] MEDS ORDERED: sodium bicarbonate 1 MEQ/1 ml inj ONE (22:10)
[2018-03-31] MEDS ORDERED: pantoprazole 40 MG vial IV ONE (22:30)
[2018-03-31] MEDS ORDERED: octreotide inj. 1,250 MCG in normal saline 250ml IV soln 250 ML IV ONE (22:30)
[2018-03-31] MEDS ORDERED: famotidine/PF 10 mg/ml inj IV ONE (22:30)
[2018-03-31] MEDS ORDERED: ipratropium/albuterol 3ml nebule NEB PRN (22:50)
[2018-03-31] MEDS ORDERED: ondansetron/PF 4mg/2ml inj IV PRN (22:50)
[2018-03-31] MEDS ORDERED: morphine 4 MG/ML inj SYRINge IV PRN ×2 (22:50)
[2018-03-31] MEDS ORDERED: octreotide 200mcg/ml 5ml vial ONE (22:55)
[2018-03-31] MEDS ORDERED: normal saline 250ml IV soln 250 ML ONE (22:56)
[2018-03-31 23:00] VITALS: BP 137/83
[2018-03-31 23:06] VITALS: BP 146/89
[2018-03-31] MEDS: sodium bicarbonate (8.4%) inj. 150 MEQ in dextrose 5%-water 1,000 ML IV SCH (23:08)
[2018-03-31 23:21] VITALS: BP 148/89
[2018-03-31 23:24] VITALS: BP 156/98
[2018-03-31 23:31] LABS: ABG BASE EXCESS -11.4 mmol/L (-2.0-3.0); ABG HCO3 15.9 mmol/L (22.0-26.0); ABG PCO2 (T) 42.4 mmHg (35.0-48.0); ABG PH (T) 7.191 (7.350-7.450); ABG PO2 (T) 87.2 mmHg (83-108); ALLEN'S TEST Positive; FCOHb 0.9 % (0.5-1.5); FMetHb 0.2 % (0.3-1.12); MINUTE VOLUME 9 L/min; PATIENT TEMPERATURE 36.8; PEEP 5 cm H2O; RESPIRATORY RATE 18 b/min; RESPIRATORY RATE (OBSERVED) 18 b/min; TIDAL VOLUME 450 mL; TOTAL HEMOGLOBIN 7.2 G/dl (14.0-18.0)
[2018-03-31 23:50] VITALS: BP 175/120
[2018-04-01] VITALS (32 sets, daily range): BP systolic 95–155; BP diastolic 65–93
[2018-04-01] MEDS ORDERED: calcium chloride 100 MG/1 ML inj IV ONE ×2 (00:20→01:18)
[2018-04-01] MEDS ORDERED: midazolam 2 mg/2 ml injection ONE ×2 (00:34→00:36)
[2018-04-01] MEDS ORDERED: MIDAZolam 5mg/ml 2ml vial IV ONE ×2 (00:40→01:05)
[2018-04-01] MEDS ORDERED: fentaNYL in normal saline/PF 1,000mcg/100ml bag IV PRN (00:45)
[2018-04-01] MEDS ORDERED: MIDAZOLAM IV PRN (00:45)
[2018-04-01] MEDS ORDERED: NS IV PRN (00:45)
[2018-04-01] MEDS ORDERED: MESSAGE TO PHARMACY PO ONE (01:05)
[2018-04-01] MEDS ORDERED: dextrose ORAL solution 15 GM/59 ML bottle PO PRN ×2 (01:05)
[2018-04-01] MEDS ORDERED: glucagon, human recombinant 1mg kit SUBCUT PRN (01:05)
[2018-04-01] MEDS ORDERED: dextrose 50%-water 50ml dispensing syringe IV PRN ×2 (01:05)
[2018-04-01] MEDS ORDERED: furosemide 40mg/4ml inj IV ONE (01:10)
[2018-04-01] MEDS ORDERED: midazolam 100mg in NS 100ml 100 ML IV PRN (01:15)
[2018-04-01] MEDS ORDERED: FENTANYL-0.9 % NACL/PF 100 ML IV PRN (01:15)
[2018-04-01] MEDS: levoFLOXACIN-Levaquin 500mg/D5 100 ML IV SCH ×2 (02:18→09:54)
[2018-04-01] MEDS ORDERED: pantoprazole 40MG/NS 100ML BAG 100 ML IV ONE (04:00)
[2018-04-01] MEDS: CefTRIAXone/D5W-Rocephin 1gm 50 ML IV SCH ×2 (04:11→09:55)
[2018-04-01] MEDS: pantoprazole 40MG/NS 100ML BAG 100 ML IV SCH ×5 (04:13→19:20)
[2018-04-01 04:21] LABS: ABG BASE EXCESS -3.6 mmol/L (-2.0-3.0); ABG HCO3 21.6 mmol/L (22.0-26.0); ABG OXYGEN SATURATION 98.7 % (95-98); ABG PCO2 (T) 39.2 mmHg (35.0-48.0); ABG PH (T) 7.358 (7.350-7.450); ABG PO2 (T) 196.5 mmHg (83-108); FCOHb 0.3 % (0.5-1.5); FMetHb 0.1 % (0.3-1.12); FO2Hb 98.3 % (94-100); MINUTE VOLUME 8 L/min; PATIENT TEMPERATURE 36.9; PEEP 5 cm H2O; RESPIRATORY RATE 18 b/min; RESPIRATORY RATE (OBSERVED) 18 b/min; TIDAL VOLUME 450 mL; TOTAL HEMOGLOBIN 10.4 G/dl (14.0-18.0)
[2018-04-01 05:07] LABS: BASOPHILS % (AUTO) 0 % (0-1); EOSINOPHILS % (AUTO) 0.1 % (0-6); HEMATOCRIT 30.3 % (42.0-52.0); HEMOGLOBIN 10.2 g/dl (14.0-17.9); LYMPHOCYTES # (AUTO) 1.2 X10'3 (1.1-4.8); LYMPHOCYTES % (AUTO) 6.4 % (21-51); MEAN CORPUSCULAR HEMOGLOBIN 28.6 PG (27.0-31.0); MEAN CORPUSCULAR HGB CONC 33.7 % (33.0-36.5); MEAN PLATELET VOLUME 7.5 FL (7.4-10.4); MONOCYTES # (AUTO) 0.1 X10'3 (0-0.9); MONOCYTES % (AUTO) 0.4 % (2-12); NEUTROPHILS # (AUTO) 17.9 X10'3 (1.8-7.7); NEUTROPHILS % (AUTO) 93.1 % (42-75); PLATELET COUNT 202 X10'3 (140-440); RED BLOOD COUNT 3.56 X10'6 (4.70-6.10); RED CELL DISTRIBUTION WIDTH 16.2 % (11.5-14.5); WHITE BLOOD COUNT 19.3 X10'3 (4.5-11.0)
[2018-04-01 05:25] LABS: ALANINE AMINOTRANSFERASE 60 U/L (12-78); ALBUMIN 2.5 G/DL (3.4-5.0); ALBUMIN/GLOBULIN RATIO 0.9 (1.1-1.5); ALKALINE PHOSPHATASE 111 IU/L (46-116); ANION GAP 13 (8-16); ASPARTATE AMINO TRANSFERASE 101 U/L (10-37); BILIRUBIN,TOTAL 0.5 MG/DL (0.1-1.0); BLOOD UREA NITROGEN 25 MG/DL (7-18); CALCIUM 7.5 MG/DL (8.5-10.1); CHLORIDE 107 MMOL/L (99-107); CREATININE 1.39 MG/DL (0.60-1.10); GLUCOSE 232 MG/DL (70-104); POTASSIUM 3.5 MMOL/L (3.5-5.1); SODIUM 144 MMOL/L (135-145); TOTAL CARBON DIOXIDE 24.2 MMOL/L (24-32); TOTAL PROTEIN 5.4 G/DL (6.4-8.2); eGFR 52 ML/MIN
[2018-04-01] MEDS ORDERED: metoprolol tartrate 1mg/ml inj IV ONE ×2 (05:55)
[2018-04-01] MEDS: sodium bicarbonate (8.4%) inj. 150 MEQ in dextrose 5%-water 1,000 ML IV SCH ×2 (08:28→14:58)
[2018-04-01 09:25] LABS: BASOPHILS % (AUTO) 0.3 % (0-1); EOSINOPHILS % (AUTO) 0 % (0-6); HEMATOCRIT 27.6 % (42.0-52.0); HEMOGLOBIN 9.4 g/dl (14.0-17.9); LYMPHOCYTES # (AUTO) 0.8 X10'3 (1.1-4.8); LYMPHOCYTES % (AUTO) 5.9 % (21-51); MEAN CORPUSCULAR HEMOGLOBIN 28.5 PG (27.0-31.0); MEAN CORPUSCULAR VOLUME 83.7 FL (78-98); MEAN PLATELET VOLUME 7.8 FL (7.4-10.4); MONOCYTES % (AUTO) 0.3 % (2-12); NEUTROPHILS # (AUTO) 12.8 X10'3 (1.8-7.7); NEUTROPHILS % (AUTO) 93.5 % (42-75); PLATELET COUNT 154 X10'3 (140-440); RED CELL DISTRIBUTION WIDTH 16.5 % (11.5-14.5); WHITE BLOOD COUNT 13.7 X10'3 (4.5-11.0)
[2018-04-01] MEDS ORDERED: fentaNYL/PF 50MCG/1 ML 2ML syringe ONE (09:52)
[2018-04-01] MEDS ORDERED: MIDAZolam 5mg/5ml vial ONE (09:52)
[2018-04-01] MEDS ORDERED: LIDOcaine Viscous 15ml cup ONE (09:53)
[2018-04-01] MEDS ORDERED: magnesium Cl slow-release 64mg tablet PO PRN (10:45)
[2018-04-01] MEDS ORDERED: potassium Cl 40MEQ/NS 500ml 500 ML IV PRN (10:45)
[2018-04-01] MEDS ORDERED: potassium Cl 20 mEq SR tablet PO PRN ×2 (10:45)
[2018-04-01] MEDS ORDERED: magnesium 1gm/100ml D5W IVPB 100 ML IV PRN (10:45)
[2018-04-01] MEDS: insulin Lispro (HumaLOG) vial - multi-dose SQ SCH ×2 (12:13→19:22)
[2018-04-01] MEDS: potassium Cl 40MEQ/250ML bag 250 ML IV PRN (13:46)
[2018-04-01] MEDS ORDERED: ipratropium/albuterol 3ml nebule NEB PRN (13:50)
[2018-04-01] MEDS ORDERED: racepinephrine 11.25mg/0.5ml nebule NEB PRN (13:50)
[2018-04-01 14:25] LABS: BASOPHILS # (AUTO) 0.1 X10'3 (0-0.2); BASOPHILS % (AUTO) 0.4 % (0-1); EOSINOPHILS % (AUTO) 0 % (0-6); HEMATOCRIT 27.3 % (42.0-52.0); HEMOGLOBIN 9.2 g/dl (14.0-17.9); LYMPHOCYTES # (AUTO) 0.9 X10'3 (1.1-4.8); LYMPHOCYTES % (AUTO) 6.8 % (21-51); MEAN CORPUSCULAR HEMOGLOBIN 28.2 PG (27.0-31.0); MEAN CORPUSCULAR HGB CONC 33.8 % (33.0-36.5); MEAN CORPUSCULAR VOLUME 83.3 FL (78-98); MEAN PLATELET VOLUME 7.9 FL (7.4-10.4); MONOCYTES # (AUTO) 0.2 X10'3 (0-0.9); MONOCYTES % (AUTO) 1.4 % (2-12); NEUTROPHILS # (AUTO) 12.5 X10'3 (1.8-7.7); NEUTROPHILS % (AUTO) 91.4 % (42-75); PLATELET COUNT 165 X10'3 (140-440); RED BLOOD COUNT 3.27 X10'6 (4.70-6.10); RED CELL DISTRIBUTION WIDTH 16.4 % (11.5-14.5); WHITE BLOOD COUNT 13.7 X10'3 (4.5-11.0)
[2018-04-01 15:09] LABS: % IRON SATURATION 5 % (11-46); IRON 16 UG/DL (53-167); TOTAL IRON BINDING CAPACITY 346 UG/DL (259-388)
[2018-04-01] MEDS: ipratropium/albuterol 3ml nebule NEB SCH ×2 (15:12→20:42)
[2018-04-01 16:53] LABS: BASOPHILS % (AUTO) 0 % (0-1); EOSINOPHILS # (AUTO) 0.1 X10'3 (0-0.9); EOSINOPHILS % (AUTO) 0.8 % (0-6); HEMATOCRIT 27.2 % (42.0-52.0); HEMOGLOBIN 9.2 g/dl (14.0-17.9); LYMPHOCYTES % (AUTO) 7.5 % (21-51); MEAN CORPUSCULAR HEMOGLOBIN 28.4 PG (27.0-31.0); MEAN CORPUSCULAR HGB CONC 33.8 % (33.0-36.5); MEAN PLATELET VOLUME 7.9 FL (7.4-10.4); MONOCYTES # (AUTO) 0.3 X10'3 (0-0.9); MONOCYTES % (AUTO) 2.5 % (2-12); NEUTROPHILS # (AUTO) 12.1 X10'3 (1.8-7.7); NEUTROPHILS % (AUTO) 89.2 % (42-75); PLATELET COUNT 183 X10'3 (140-440); RED BLOOD COUNT 3.23 X10'6 (4.70-6.10); RED CELL DISTRIBUTION WIDTH 16.2 % (11.5-14.5); WHITE BLOOD COUNT 13.6 X10'3 (4.5-11.0)
[2018-04-01] MEDS: insulin glargine (Lantus) pen - multi-dose SQ SCH (20:21)
[2018-04-01 20:28] LABS: BASOPHILS % (AUTO) 0 % (0-1); EOSINOPHILS # (AUTO) 0.2 X10'3 (0-0.9); EOSINOPHILS % (AUTO) 1.3 % (0-6); HEMATOCRIT 24.7 % (42.0-52.0); HEMOGLOBIN 8.4 g/dl (14.0-17.9); LYMPHOCYTES # (AUTO) 1.1 X10'3 (1.1-4.8); LYMPHOCYTES % (AUTO) 9.1 % (21-51); MEAN CORPUSCULAR HEMOGLOBIN 28.3 PG (27.0-31.0); MEAN CORPUSCULAR VOLUME 83.3 FL (78-98); MEAN PLATELET VOLUME 7.8 FL (7.4-10.4); MONOCYTES # (AUTO) 0.3 X10'3 (0-0.9); MONOCYTES % (AUTO) 2.6 % (2-12); NEUTROPHILS # (AUTO) 10.5 X10'3 (1.8-7.7); PLATELET COUNT 170 X10'3 (140-440); RED BLOOD COUNT 2.96 X10'6 (4.70-6.10); RED CELL DISTRIBUTION WIDTH 16.6 % (11.5-14.5); WHITE BLOOD COUNT 12.1 X10'3 (4.5-11.0)
[2018-04-02] VITALS (21 sets, daily range): BP systolic 111–160; BP diastolic 69–95
[2018-04-02 00:36] LABS: BASOPHILS % (AUTO) 0 % (0-1); EOSINOPHILS # (AUTO) 0.2 X10'3 (0-0.9); EOSINOPHILS % (AUTO) 1.5 % (0-6); HEMATOCRIT 23.9 % (42.0-52.0); HEMOGLOBIN 8.1 g/dl (14.0-17.9); LYMPHOCYTES # (AUTO) 1.4 X10'3 (1.1-4.8); LYMPHOCYTES % (AUTO) 11.6 % (21-51); MEAN CORPUSCULAR HEMOGLOBIN 28.2 PG (27.0-31.0); MEAN CORPUSCULAR HGB CONC 33.8 % (33.0-36.5); MEAN CORPUSCULAR VOLUME 83.4 FL (78-98); MONOCYTES # (AUTO) 0.4 X10'3 (0-0.9); MONOCYTES % (AUTO) 3.7 % (2-12); NEUTROPHILS # (AUTO) 9.8 X10'3 (1.8-7.7); NEUTROPHILS % (AUTO) 83.2 % (42-75); PLATELET COUNT 149 X10'3 (140-440); RED BLOOD COUNT 2.86 X10'6 (4.70-6.10); RED CELL DISTRIBUTION WIDTH 16.7 % (11.5-14.5); WHITE BLOOD COUNT 11.7 X10'3 (4.5-11.0)
[2018-04-02] MEDS: pantoprazole 40MG/NS 100ML BAG 100 ML IV SCH ×2 (01:11→05:50)
[2018-04-02] MEDS ORDERED: mineral oil/petrolatum ophthal oint EACHEYE SCH (02:00)
[2018-04-02] MEDS: ipratropium/albuterol 3ml nebule NEB SCH ×4 (02:34→20:39)
[2018-04-02 04:46] LABS: BASOPHILS % (AUTO) 0.3 % (0-1); EOSINOPHILS # (AUTO) 0.2 X10'3 (0-0.9); EOSINOPHILS % (AUTO) 1.5 % (0-6); HEMATOCRIT 22.9 % (42.0-52.0); HEMOGLOBIN 7.7 g/dl (14.0-17.9); LYMPHOCYTES # (AUTO) 1.6 X10'3 (1.1-4.8); LYMPHOCYTES % (AUTO) 14.6 % (21-51); MEAN CORPUSCULAR HEMOGLOBIN 28.5 PG (27.0-31.0); MEAN CORPUSCULAR HGB CONC 33.8 % (33.0-36.5); MEAN CORPUSCULAR VOLUME 84.2 FL (78-98); MEAN PLATELET VOLUME 8.4 FL (7.4-10.4); MONOCYTES # (AUTO) 0.4 X10'3 (0-0.9); MONOCYTES % (AUTO) 3.7 % (2-12); NEUTROPHILS # (AUTO) 8.8 X10'3 (1.8-7.7); NEUTROPHILS % (AUTO) 79.9 % (42-75); PLATELET COUNT 136 X10'3 (140-440); RED BLOOD COUNT 2.72 X10'6 (4.70-6.10); RED CELL DISTRIBUTION WIDTH 16.8 % (11.5-14.5); WHITE BLOOD COUNT 11.1 X10'3 (4.5-11.0)
[2018-04-02 05:05] LABS: ALANINE AMINOTRANSFERASE 34 U/L (12-78); ALBUMIN 2.1 G/DL (3.4-5.0); ALBUMIN/GLOBULIN RATIO 0.8 (1.1-1.5); ALKALINE PHOSPHATASE 73 IU/L (46-116); ANION GAP 5 (8-16); ASPARTATE AMINO TRANSFERASE 43 U/L (10-37); BILIRUBIN,TOTAL 0.4 MG/DL (0.1-1.0); BLOOD UREA NITROGEN 21 MG/DL (7-18); BUN/CREATININE RATIO 19.4 (5.4-32.0); CALCIUM 6.9 MG/DL (8.5-10.1); CHLORIDE 107 MMOL/L (99-107); CREATININE 1.08 MG/DL (0.60-1.10); GLUCOSE 132 MG/DL (70-104); MAGNESIUM 1.5 MG/DL (1.5-2.4); POTASSIUM 3.4 MMOL/L (3.5-5.1); SODIUM 142 MMOL/L (135-145); TOTAL CARBON DIOXIDE 29.7 MMOL/L (24-32); TOTAL PROTEIN 4.8 G/DL (6.4-8.2); eGFR 69 ML/MIN
[2018-04-02] MEDS: K and/or MAG REPLACEMENT MC SCH (08:03)
[2018-04-02] MEDS: CefTRIAXone/D5W-Rocephin 1gm 50 ML IV SCH (08:23)
[2018-04-02] MEDS: levoFLOXACIN-Levaquin 500mg/D5 100 ML IV SCH (08:27)
[2018-04-02 08:45] LABS: BASOPHILS % (AUTO) 0.4 % (0-1); EOSINOPHILS # (AUTO) 0.2 X10'3 (0-0.9); EOSINOPHILS % (AUTO) 2.1 % (0-6); HEMATOCRIT 22.8 % (42.0-52.0); HEMOGLOBIN 7.7 g/dl (14.0-17.9); LYMPHOCYTES # (AUTO) 1.4 X10'3 (1.1-4.8); LYMPHOCYTES % (AUTO) 14.8 % (21-51); MEAN CORPUSCULAR HEMOGLOBIN 28.6 PG (27.0-31.0); MEAN CORPUSCULAR HGB CONC 33.9 % (33.0-36.5); MEAN CORPUSCULAR VOLUME 84.5 FL (78-98); MONOCYTES # (AUTO) 0.3 X10'3 (0-0.9); MONOCYTES % (AUTO) 3.4 % (2-12); NEUTROPHILS # (AUTO) 7.7 X10'3 (1.8-7.7); NEUTROPHILS % (AUTO) 79.3 % (42-75); PLATELET COUNT 119 X10'3 (140-440); RED CELL DISTRIBUTION WIDTH 17.3 % (11.5-14.5); WHITE BLOOD COUNT 9.7 X10'3 (4.5-11.0)
[2018-04-02] MEDS ORDERED: sodium ferric gluc complex inj 125 MG in normal saline 100ml IV soln 100 ML IV ONE (08:45)
[2018-04-02] MEDS: sodium ferric gluc complex inj 125 MG in normal saline 100ml IV soln 100 ML IV SCH (08:51)
[2018-04-02 12:35] LABS: BASOPHILS % (AUTO) 0.3 % (0-1); EOSINOPHILS # (AUTO) 0.2 X10'3 (0-0.9); EOSINOPHILS % (AUTO) 2.4 % (0-6); HEMATOCRIT 22.3 % (42.0-52.0); HEMOGLOBIN 7.5 g/dl (14.0-17.9); LYMPHOCYTES # (AUTO) 1.3 X10'3 (1.1-4.8); LYMPHOCYTES % (AUTO) 13.9 % (21-51); MEAN CORPUSCULAR HEMOGLOBIN 28.5 PG (27.0-31.0); MEAN CORPUSCULAR HGB CONC 33.6 % (33.0-36.5); MEAN CORPUSCULAR VOLUME 84.7 FL (78-98); MEAN PLATELET VOLUME 8.8 FL (7.4-10.4); MONOCYTES # (AUTO) 0.3 X10'3 (0-0.9); MONOCYTES % (AUTO) 3.6 % (2-12); NEUTROPHILS # (AUTO) 7.2 X10'3 (1.8-7.7); NEUTROPHILS % (AUTO) 79.8 % (42-75); PLATELET COUNT 118 X10'3 (140-440); RED BLOOD COUNT 2.63 X10'6 (4.70-6.10); RED CELL DISTRIBUTION WIDTH 17.1 % (11.5-14.5)
[2018-04-02 16:46] LABS: BASOPHILS # (AUTO) 0.1 X10'3 (0-0.2); BASOPHILS % (AUTO) 1.4 % (0-1); EOSINOPHILS # (AUTO) 0.2 X10'3 (0-0.9); EOSINOPHILS % (AUTO) 2.1 % (0-6); HEMATOCRIT 24.6 % (42.0-52.0); HEMOGLOBIN 8.3 g/dl (14.0-17.9); LYMPHOCYTES # (AUTO) 1.3 X10'3 (1.1-4.8); LYMPHOCYTES % (AUTO) 13.7 % (21-51); MEAN CORPUSCULAR HEMOGLOBIN 28.2 PG (27.0-31.0); MEAN CORPUSCULAR HGB CONC 33.7 % (33.0-36.5); MEAN CORPUSCULAR VOLUME 83.7 FL (78-98); MEAN PLATELET VOLUME 8.7 FL (7.4-10.4); MONOCYTES # (AUTO) 0.3 X10'3 (0-0.9); MONOCYTES % (AUTO) 2.9 % (2-12); NEUTROPHILS # (AUTO) 7.7 X10'3 (1.8-7.7); NEUTROPHILS % (AUTO) 79.9 % (42-75); PLATELET COUNT 125 X10'3 (140-440); RED BLOOD COUNT 2.93 X10'6 (4.70-6.10); RED CELL DISTRIBUTION WIDTH 17.2 % (11.5-14.5); WHITE BLOOD COUNT 9.7 X10'3 (4.5-11.0)
[2018-04-02] MEDS: carVEDilol 12.5mg tablet PO SCH (20:36)
[2018-04-02] MEDS: insulin glargine (Lantus) pen - multi-dose SQ SCH (20:39)
[2018-04-02 20:47] LABS: BASOPHILS % (AUTO) 0.3 % (0-1); EOSINOPHILS # (AUTO) 0.2 X10'3 (0-0.9); HEMATOCRIT 23.8 % (42.0-52.0); HEMOGLOBIN 8.2 g/dl (14.0-17.9); LYMPHOCYTES # (AUTO) 1.5 X10'3 (1.1-4.8); LYMPHOCYTES % (AUTO) 14.9 % (21-51); MEAN CORPUSCULAR HEMOGLOBIN 28.6 PG (27.0-31.0); MEAN CORPUSCULAR HGB CONC 34.3 % (33.0-36.5); MEAN CORPUSCULAR VOLUME 83.5 FL (78-98); MEAN PLATELET VOLUME 9.2 FL (7.4-10.4); MONOCYTES # (AUTO) 0.4 X10'3 (0-0.9); MONOCYTES % (AUTO) 3.9 % (2-12); NEUTROPHILS # (AUTO) 7.8 X10'3 (1.8-7.7); NEUTROPHILS % (AUTO) 78.9 % (42-75); PLATELET COUNT 103 X10'3 (140-440); RED BLOOD COUNT 2.85 X10'6 (4.70-6.10); RED CELL DISTRIBUTION WIDTH 16.7 % (11.5-14.5); WHITE BLOOD COUNT 9.9 X10'3 (4.5-11.0)
[2018-04-03] VITALS (43 sets, daily range): BP systolic 57–170; BP diastolic 43–93
[2018-04-03 00:34] LABS: BASOPHILS % (AUTO) 0.2 % (0-1); EOSINOPHILS # (AUTO) 0.1 X10'3 (0-0.9); EOSINOPHILS % (AUTO) 1.3 % (0-6); LYMPHOCYTES # (AUTO) 1.3 X10'3 (1.1-4.8); LYMPHOCYTES % (AUTO) 12.6 % (21-51); MEAN CORPUSCULAR HEMOGLOBIN 27.7 PG (27.0-31.0); MEAN CORPUSCULAR HGB CONC 32.5 % (33.0-36.5); MEAN CORPUSCULAR VOLUME 85.2 FL (78-98); MEAN PLATELET VOLUME 9.1 FL (7.4-10.4); MONOCYTES # (AUTO) 0.3 X10'3 (0-0.9); NEUTROPHILS # (AUTO) 8.6 X10'3 (1.8-7.7); NEUTROPHILS % (AUTO) 82.9 % (42-75); PLATELET COUNT 111 X10'3 (140-440); RED BLOOD COUNT 2.42 X10'6 (4.70-6.10); RED CELL DISTRIBUTION WIDTH 16.1 % (11.5-14.5); WHITE BLOOD COUNT 10.3 X10'3 (4.5-11.0)
[2018-04-03 00:38] LABS: HEMATOCRIT 20.6 % (42.0-52.0); HEMOGLOBIN 6.7 g/dl (14.0-17.9)
[2018-04-03 01:00] LABS: MEAN CORPUSCULAR HEMOGLOBIN 28.5 PG (27.0-31.0); MEAN CORPUSCULAR HGB CONC 33.3 % (33.0-36.5); MEAN CORPUSCULAR VOLUME 85.5 FL (78-98); MEAN PLATELET VOLUME 8.8 FL (7.4-10.4); PLATELET COUNT 107 X10'3 (140-440); RED BLOOD COUNT 2.42 X10'6 (4.70-6.10); WHITE BLOOD COUNT 10.4 X10'3 (4.5-11.0)
[2018-04-03 01:05] LABS: HEMATOCRIT 20.7 % (42.0-52.0); HEMOGLOBIN 6.9 g/dl (14.0-17.9)
[2018-04-03] MEDS: ipratropium/albuterol 3ml nebule NEB SCH ×3 (02:51→15:00)
[2018-04-03 05:50] LABS: BASOPHILS % (AUTO) 0.4 % (0-1); EOSINOPHILS # (AUTO) 0.3 X10'3 (0-0.9); HEMATOCRIT 22.8 % (42.0-52.0); HEMOGLOBIN 7.6 g/dl (14.0-17.9); LYMPHOCYTES # (AUTO) 1.7 X10'3 (1.1-4.8); MEAN CORPUSCULAR HEMOGLOBIN 28.8 PG (27.0-31.0); MEAN CORPUSCULAR HGB CONC 33.3 % (33.0-36.5); MEAN CORPUSCULAR VOLUME 86.6 FL (78-98); MEAN PLATELET VOLUME 9.4 FL (7.4-10.4); MONOCYTES # (AUTO) 0.4 X10'3 (0-0.9); MONOCYTES % (AUTO) 4.5 % (2-12); NEUTROPHILS # (AUTO) 6.5 X10'3 (1.8-7.7); NEUTROPHILS % (AUTO) 73.1 % (42-75); PLATELET COUNT 103 X10'3 (140-440); RED BLOOD COUNT 2.63 X10'6 (4.70-6.10); WHITE BLOOD COUNT 8.9 X10'3 (4.5-11.0)
[2018-04-03 06:20] LABS: ALANINE AMINOTRANSFERASE 33 U/L (12-78); ALBUMIN 2.1 G/DL (3.4-5.0); ALBUMIN/GLOBULIN RATIO 0.8 (1.1-1.5); ALKALINE PHOSPHATASE 114 IU/L (46-116); ANION GAP 6 (8-16); ASPARTATE AMINO TRANSFERASE 30 U/L (10-37); BILIRUBIN,TOTAL 0.4 MG/DL (0.1-1.0); BLOOD UREA NITROGEN 15 MG/DL (7-18); BUN/CREATININE RATIO 15.8 (5.4-32.0); CALCIUM 7.6 MG/DL (8.5-10.1); CHLORIDE 107 MMOL/L (99-107); CREATININE 0.95 MG/DL (0.60-1.10); GLUCOSE 99 MG/DL (70-104); MAGNESIUM 1.6 MG/DL (1.5-2.4); POTASSIUM 3.7 MMOL/L (3.5-5.1); SODIUM 140 MMOL/L (135-145); TOTAL CARBON DIOXIDE 26.6 MMOL/L (24-32); TOTAL PROTEIN 4.6 G/DL (6.4-8.2); eGFR 80 ML/MIN
[2018-04-03 07:34] LABS: BASOPHILS % (AUTO) 0.4 % (0-1); EOSINOPHILS # (AUTO) 0.1 X10'3 (0-0.9); EOSINOPHILS % (AUTO) 1.6 % (0-6); HEMATOCRIT 22.2 % (42.0-52.0); HEMOGLOBIN 7.6 g/dl (14.0-17.9); LYMPHOCYTES # (AUTO) 1.8 X10'3 (1.1-4.8); LYMPHOCYTES % (AUTO) 23.3 % (21-51); MEAN CORPUSCULAR VOLUME 85.2 FL (78-98); MEAN PLATELET VOLUME 9.4 FL (7.4-10.4); MONOCYTES # (AUTO) 0.2 X10'3 (0-0.9); MONOCYTES % (AUTO) 2.6 % (2-12); NEUTROPHILS # (AUTO) 5.5 X10'3 (1.8-7.7); NEUTROPHILS % (AUTO) 72.1 % (42-75); PLATELET COUNT 105 X10'3 (140-440); RED BLOOD COUNT 2.61 X10'6 (4.70-6.10); WHITE BLOOD COUNT 7.7 X10'3 (4.5-11.0)
[2018-04-03] MEDS: carVEDilol 12.5mg tablet PO SCH ×2 (08:00→20:00)
[2018-04-03] MEDS: K and/or MAG REPLACEMENT MC SCH (08:00)
[2018-04-03] MEDS: atorvastatin 20mg tablet PO SCH (08:00)
[2018-04-03 08:11] LABS: INR 1.2 INR; PARTIAL THROMBOPLASTIN TIME 24 SECONDS (22-32); PROTHROMBIN TIME 12.7 SECONDS (9.0-12.0)
[2018-04-03] MEDS: sodium ferric gluc complex inj 125 MG in normal saline 100ml IV soln 100 ML IV SCH (09:01)
[2018-04-03] MEDS ORDERED: heparin sodium, porcine/PF 100unit/ml 5ML syringe ONE (09:08)
[2018-04-03 09:26] LABS: BASOPHILS % (AUTO) 0.3 % (0-1); EOSINOPHILS # (AUTO) 0.2 X10'3 (0-0.9); EOSINOPHILS % (AUTO) 2.2 % (0-6); LYMPHOCYTES # (AUTO) 1.2 X10'3 (1.1-4.8); LYMPHOCYTES % (AUTO) 11.3 % (21-51); MEAN CORPUSCULAR VOLUME 85.3 FL (78-98); MONOCYTES # (AUTO) 0.4 X10'3 (0-0.9); MONOCYTES % (AUTO) 3.3 % (2-12); NEUTROPHILS # (AUTO) 8.7 X10'3 (1.8-7.7); NEUTROPHILS % (AUTO) 82.9 % (42-75); PLATELET COUNT 88 X10'3 (140-440); RED BLOOD COUNT 2.34 X10'6 (4.70-6.10); WHITE BLOOD COUNT 10.5 X10'3 (4.5-11.0)
[2018-04-03 09:28] LABS: HEMOGLOBIN 6.8 g/dl (14.0-17.9)
[2018-04-03] MEDS ORDERED: normal saline 1000ml 1,000 ML IV SCH (11:35)
[2018-04-03] MEDS ORDERED: midazolam 2 mg/2 ml injection IV PRN (12:05)
[2018-04-03] MEDS ORDERED: LIDOcaine 1%/PF 5ML 10 MG/ML VIAL SQ ONE (12:05)
[2018-04-03] MEDS ORDERED: fentaNYL/PF 50MCG/1 ML 2ML syringe IV PRN (12:05)
[2018-04-03] MEDS ORDERED: heparin 1,000 UNITS/NS 500ml 500 ML ICATH ONE (12:05)
[2018-04-03] MEDS ORDERED: LIDOcaine 1%/PF 5ML 10 MG/ML VIAL ONE (12:10)
[2018-04-03] MEDS ORDERED: iohexol 300mg/ml 100ml inj. ONE (12:11)
[2018-04-03 12:18] LABS: BASOPHILS % (AUTO) 0.5 % (0-1); EOSINOPHILS % (AUTO) 0 % (0-6); HEMOGLOBIN 7.5 g/dl (14.0-17.9); LYMPHOCYTES # (AUTO) 1.2 X10'3 (1.1-4.8); LYMPHOCYTES % (AUTO) 12.9 % (21-51); MEAN CORPUSCULAR HEMOGLOBIN 29.6 PG (27.0-31.0); MEAN CORPUSCULAR HGB CONC 34.3 % (33.0-36.5); MEAN CORPUSCULAR VOLUME 86.1 FL (78-98); MEAN PLATELET VOLUME 9.7 FL (7.4-10.4); MONOCYTES # (AUTO) 0.3 X10'3 (0-0.9); MONOCYTES % (AUTO) 2.8 % (2-12); NEUTROPHILS # (AUTO) 8.1 X10'3 (1.8-7.7); NEUTROPHILS % (AUTO) 83.8 % (42-75); PLATELET COUNT 82 X10'3 (140-440); RED BLOOD COUNT 2.52 X10'6 (4.70-6.10); RED CELL DISTRIBUTION WIDTH 15.5 % (11.5-14.5); WHITE BLOOD COUNT 9.6 X10'3 (4.5-11.0)
[2018-04-03 12:24] LABS: HEMATOCRIT 21.7 % (42.0-52.0)
[2018-04-03] MEDS ORDERED: heparin 1,000 UNITS/NS 500ml 500 ML ONE (12:38)
[2018-04-03] MEDS ORDERED: midazolam 2 mg/2 ml injection ONE ×2 (12:38→15:07)
[2018-04-03] MEDS ORDERED: fentaNYL/PF 50MCG/1 ML 2ML syringe ONE ×2 (12:38→13:21)
[2018-04-03] MEDS ORDERED: MIDAZolam 5mg/5ml vial ONE (13:21)
[2018-04-03] MEDS ORDERED: LIDOcaine Viscous 15ml cup ONE (13:22)
[2018-04-03 13:53] LABS: ALANINE AMINOTRANSFERASE 19 U/L (12-78); ALBUMIN/GLOBULIN RATIO 0.7 (1.1-1.5); ALKALINE PHOSPHATASE 60 IU/L (46-116); ANION GAP 5 (8-16); ASPARTATE AMINO TRANSFERASE 19 U/L (10-37); BILIRUBIN,TOTAL 0.4 MG/DL (0.1-1.0); BLOOD UREA NITROGEN 15 MG/DL (7-18); BUN/CREATININE RATIO 16.7 (5.4-32.0); CALCIUM 6.1 MG/DL (8.5-10.1); CHLORIDE 114 MMOL/L (99-107); GLUCOSE 191 MG/DL (70-104); MAGNESIUM 1.5 MG/DL (1.5-2.4); SODIUM 140 MMOL/L (135-145); TOTAL CARBON DIOXIDE 20.6 MMOL/L (24-32); TOTAL PROTEIN 2.4 G/DL (6.4-8.2); eGFR 86 ML/MIN
[2018-04-03] MEDS ORDERED: NORepinephrine 8mg/ 250ml NS 250 ML IV ONE (13:55)
[2018-04-03] MEDS ORDERED: albumin (Human) 5% 250ml 500 ML IV ONE (14:03)
[2018-04-03] MEDS ORDERED: albumin (human) 25% 100 ML IV solution IV ONE (14:05)
[2018-04-03] MEDS ORDERED: LIDOcaine 1% (10mg/ml) 2ml vial ONE (14:26)
[2018-04-03] MEDS ORDERED: desflurane 240ml liquid inh. IH ONE (15:00)
[2018-04-03 15:04] LABS: BASOPHILS % (AUTO) 0.2 % (0-1); EOSINOPHILS # (AUTO) 0.1 X10'3 (0-0.9); EOSINOPHILS % (AUTO) 1.6 % (0-6); HEMOGLOBIN 7.3 g/dl (14.0-17.9); LYMPHOCYTES # (AUTO) 1.1 X10'3 (1.1-4.8); MEAN CORPUSCULAR HEMOGLOBIN 29.8 PG (27.0-31.0); MEAN CORPUSCULAR HGB CONC 33.7 % (33.0-36.5); MEAN CORPUSCULAR VOLUME 88.3 FL (78-98); MEAN PLATELET VOLUME 9.3 FL (7.4-10.4); MONOCYTES # (AUTO) 0.3 X10'3 (0-0.9); MONOCYTES % (AUTO) 3.6 % (2-12); NEUTROPHILS # (AUTO) 6.7 X10'3 (1.8-7.7); NEUTROPHILS % (AUTO) 81.6 % (42-75); PLATELET COUNT 67 X10'3 (140-440); RED BLOOD COUNT 2.45 X10'6 (4.70-6.10); WHITE BLOOD COUNT 8.3 X10'3 (4.5-11.0)
[2018-04-03] MEDS ORDERED: fentaNYL /PF 50mcg/ml 5ml ampule ONE (15:07)
[2018-04-03] MEDS ORDERED: rocuronium 10mg/ml inj IV ONE (15:09)
[2018-04-03] MEDS ORDERED: etomidate 2mg/ml inj. ONE (15:09)
[2018-04-03 15:15] LABS: HEMATOCRIT 21.7 % (42.0-52.0)
[2018-04-03] MEDS ORDERED: pancuronium br 1mg/ml inj IV ONE (15:46)
[2018-04-03] MEDS ORDERED: ringers solution, lacted 1,000 ML IV SCH (16:16)
[2018-04-03] MEDS ORDERED: ondansetron/PF 4mg/2ml inj IV PRN (16:20)
[2018-04-03] MEDS ORDERED: proCHLORperazine 10 MG/2 ml inj IV PRN (16:20)
[2018-04-03] MEDS ORDERED: morphine 4 MG/ML inj SYRINge IV PRN ×2 (16:20)
[2018-04-03] MEDS ORDERED: meperidine/PF 25mg/ml syringe IV PRN ×3 (16:20)
[2018-04-03] MEDS ORDERED: ceFOXitin 1000 MG inj ONE ×2 (16:25)
[2018-04-03] MEDS ORDERED: sodium bicarbonate 1 MEQ/1 ml inj ONE (16:29)
[2018-04-03] MEDS ORDERED: morphine 2 MG/ML inj. syringe ONE (17:19)
[2018-04-03] MEDS ORDERED: MIDAZolam 5mg/ml 2ml vial ONE (17:25)
[2018-04-03] MEDS ORDERED: midazolam 100mg in NS 100ml 100 ML IV PRN (17:48)
[2018-04-03] MEDS: FENTANYL-0.9 % NACL/PF 100 ML IV PRN (18:03)
[2018-04-03 18:05] LABS: BASOPHILS % (AUTO) 0.4 % (0-1); EOSINOPHILS # (AUTO) 0.1 X10'3 (0-0.9); EOSINOPHILS % (AUTO) 0.9 % (0-6); LYMPHOCYTES # (AUTO) 1.1 X10'3 (1.1-4.8); LYMPHOCYTES % (AUTO) 11.8 % (21-51); MEAN CORPUSCULAR HEMOGLOBIN 29.6 PG (27.0-31.0); MEAN CORPUSCULAR HGB CONC 34.4 % (33.0-36.5); MEAN PLATELET VOLUME 9.2 FL (7.4-10.4); MONOCYTES # (AUTO) 0.4 X10'3 (0-0.9); MONOCYTES % (AUTO) 3.9 % (2-12); PLATELET COUNT 124 X10'3 (140-440); RED BLOOD COUNT 2.26 X10'6 (4.70-6.10); RED CELL DISTRIBUTION WIDTH 14.9 % (11.5-14.5); WHITE BLOOD COUNT 9.6 X10'3 (4.5-11.0)
[2018-04-03 18:09] LABS: HEMOGLOBIN 6.7 g/dl (14.0-17.9)
[2018-04-03 18:10] LABS: HEMATOCRIT 19.5 % (42.0-52.0)
[2018-04-03 18:18] LABS: ALANINE AMINOTRANSFERASE 29 U/L (12-78); ALBUMIN 1.9 G/DL (3.4-5.0); ALBUMIN/GLOBULIN RATIO 1.1 (1.1-1.5); ALKALINE PHOSPHATASE 54 IU/L (46-116); ANION GAP 9 (8-16); ASPARTATE AMINO TRANSFERASE 37 U/L (10-37); BILIRUBIN,TOTAL 0.6 MG/DL (0.1-1.0); BLOOD UREA NITROGEN 16 MG/DL (7-18); BUN/CREATININE RATIO 13.9 (5.4-32.0); CALCIUM 6.3 MG/DL (8.5-10.1); CHLORIDE 114 MMOL/L (99-107); CREATININE 1.15 MG/DL (0.60-1.10); GLUCOSE 208 MG/DL (70-104); MAGNESIUM 1.3 MG/DL (1.5-2.4); PHOSPHORUS 3.2 MG/DL (2.3-4.5); POTASSIUM 5.2 MMOL/L (3.5-5.1); SODIUM 142 MMOL/L (135-145); TOTAL CARBON DIOXIDE 19.1 MMOL/L (24-32); TOTAL PROTEIN 3.6 G/DL (6.4-8.2); eGFR 64 ML/MIN
[2018-04-03] MEDS ORDERED: albuterol 2.5 MG/3 ML nebule NEB SCH (19:00)
[2018-04-03] MEDS: insulin glargine (Lantus) pen - multi-dose SQ SCH (21:00)
[2018-04-03 22:31] LABS: BASOPHILS % (AUTO) 0.1 % (0-1); EOSINOPHILS # (AUTO) 0.3 X10'3 (0-0.9); EOSINOPHILS % (AUTO) 1.8 % (0-6); HEMATOCRIT 28.1 % (42.0-52.0); HEMOGLOBIN 9.7 g/dl (14.0-17.9); LYMPHOCYTES # (AUTO) 1.8 X10'3 (1.1-4.8); MEAN CORPUSCULAR HEMOGLOBIN 29.9 PG (27.0-31.0); MEAN CORPUSCULAR HGB CONC 34.4 % (33.0-36.5); MEAN CORPUSCULAR VOLUME 86.8 FL (78-98); MEAN PLATELET VOLUME 9.8 FL (7.4-10.4); MONOCYTES # (AUTO) 0.6 X10'3 (0-0.9); NEUTROPHILS # (AUTO) 12.3 X10'3 (1.8-7.7); NEUTROPHILS % (AUTO) 82.1 % (42-75); RED BLOOD COUNT 3.24 X10'6 (4.70-6.10); RED CELL DISTRIBUTION WIDTH 15.1 % (11.5-14.5)
[2018-04-03 23:06] LABS: PLATELET COUNT 140 X10'3 (140-440)
[2018-04-04] VITALS (30 sets, daily range): BP systolic 98–151; BP diastolic 67–97
[2018-04-04] MEDS: FENTANYL-0.9 % NACL/PF 100 ML IV PRN (02:18)
[2018-04-04 03:21] LABS: ABG BASE EXCESS -5.7 mmol/L (-2.0-3.0); ABG HCO3 19.2 mmol/L (22.0-26.0); ABG OXYGEN SATURATION 96.8 % (95-98); ABG PCO2 (T) 35.4 mmHg (35.0-48.0); ABG PH (T) 7.353 (7.350-7.450); ABG PO2 (T) 100.4 mmHg (83-108); FCOHb 0.3 % (0.5-1.5); FMetHb 0.3 % (0.3-1.12); FO2Hb 96.2 % (94-100); MINUTE VOLUME 8 L/min; PEEP 5 cm H2O; RESPIRATORY RATE 0 b/min; RESPIRATORY RATE (OBSERVED) 15 b/min; TIDAL VOLUME 582 mL; TOTAL HEMOGLOBIN 9.6 G/dl (14.0-18.0)
[2018-04-04 04:43] LABS: BASOPHILS % (AUTO) 0.3 % (0-1); EOSINOPHILS # (AUTO) 0.2 X10'3 (0-0.9); HEMATOCRIT 25.7 % (42.0-52.0); HEMOGLOBIN 8.6 g/dl (14.0-17.9); LYMPHOCYTES # (AUTO) 1.2 X10'3 (1.1-4.8); LYMPHOCYTES % (AUTO) 9.9 % (21-51); MEAN CORPUSCULAR HEMOGLOBIN 29.6 PG (27.0-31.0); MEAN CORPUSCULAR HGB CONC 33.4 % (33.0-36.5); MEAN CORPUSCULAR VOLUME 88.5 FL (78-98); MONOCYTES # (AUTO) 0.6 X10'3 (0-0.9); NEUTROPHILS % (AUTO) 82.8 % (42-75); RED CELL DISTRIBUTION WIDTH 15.2 % (11.5-14.5); WHITE BLOOD COUNT 12.1 X10'3 (4.5-11.0)
[2018-04-04 05:03] LABS: PLATELET COUNT 120 X10'3 (140-440)
[2018-04-04 05:06] LABS: ALANINE AMINOTRANSFERASE 40 U/L (12-78); ALBUMIN 1.9 G/DL (3.4-5.0); ALBUMIN/GLOBULIN RATIO 0.9 (1.1-1.5); ALKALINE PHOSPHATASE 51 IU/L (46-116); ANION GAP 7 (8-16); ASPARTATE AMINO TRANSFERASE 39 U/L (10-37); BILIRUBIN,TOTAL 0.5 MG/DL (0.1-1.0); BLOOD UREA NITROGEN 19 MG/DL (7-18); BUN/CREATININE RATIO 14.8 (5.4-32.0); CALCIUM 7.1 MG/DL (8.5-10.1); CHLORIDE 115 MMOL/L (99-107); CREATININE 1.28 MG/DL (0.60-1.10); GLUCOSE 138 MG/DL (70-104); MAGNESIUM 1.5 MG/DL (1.5-2.4); POTASSIUM 4.5 MMOL/L (3.5-5.1); SODIUM 144 MMOL/L (135-145); TOTAL CARBON DIOXIDE 21.9 MMOL/L (24-32); eGFR 57 ML/MIN
[2018-04-04] MEDS: normal saline 1000ml 1,000 ML IV SCH ×2 (05:45→15:06)
[2018-04-04] MEDS: atorvastatin 20mg tablet PO SCH (06:42)
[2018-04-04] MEDS: K and/or MAG REPLACEMENT MC SCH (06:42)
[2018-04-04] MEDS: carVEDilol 12.5mg tablet PO SCH ×2 (06:43→21:17)
[2018-04-04] MEDS: sodium ferric gluc complex inj 125 MG in normal saline 100ml IV soln 100 ML IV SCH (07:59)
[2018-04-04 08:30] LABS: BASOPHILS # (AUTO) 0.1 X10'3 (0-0.2); BASOPHILS % (AUTO) 0.6 % (0-1); EOSINOPHILS # (AUTO) 0.1 X10'3 (0-0.9); EOSINOPHILS % (AUTO) 0.8 % (0-6); HEMATOCRIT 24.2 % (42.0-52.0); HEMOGLOBIN 8.2 g/dl (14.0-17.9); LYMPHOCYTES # (AUTO) 1.2 X10'3 (1.1-4.8); LYMPHOCYTES % (AUTO) 10.2 % (21-51); MEAN CORPUSCULAR HEMOGLOBIN 29.8 PG (27.0-31.0); MEAN CORPUSCULAR HGB CONC 33.8 % (33.0-36.5); MEAN CORPUSCULAR VOLUME 88.2 FL (78-98); MEAN PLATELET VOLUME 9.8 FL (7.4-10.4); MONOCYTES # (AUTO) 0.7 X10'3 (0-0.9); MONOCYTES % (AUTO) 5.6 % (2-12); NEUTROPHILS # (AUTO) 9.8 X10'3 (1.8-7.7); NEUTROPHILS % (AUTO) 82.8 % (42-75); PLATELET COUNT 83 X10'3 (140-440); RED BLOOD COUNT 2.74 X10'6 (4.70-6.10); RED CELL DISTRIBUTION WIDTH 15.3 % (11.5-14.5); WHITE BLOOD COUNT 11.9 X10'3 (4.5-11.0)
[2018-04-04] MEDS ORDERED: ipratropium/albuterol 3ml nebule NEB PRN (10:35)
[2018-04-04] MEDS ORDERED: naloxone 0.4 mg/ml inj IV PRN (10:35)
[2018-04-04] MEDS ORDERED: CADD PCA waste documentation MC PRN (10:35)
[2018-04-04] MEDS ORDERED: racepinephrine 11.25mg/0.5ml nebule NEB PRN (10:35)
[2018-04-04] MEDS: HYDROmorphone/NS 1 mg/ml CADD 50 ML IV SCH ×7 (11:00→23:00)
[2018-04-04 12:14] LABS: HEMATOCRIT 23.6 % (42.0-52.0); HEMOGLOBIN 8.1 g/dl (14.0-17.9); MEAN CORPUSCULAR HEMOGLOBIN 30.2 PG (27.0-31.0); MEAN CORPUSCULAR HGB CONC 34.4 % (33.0-36.5); MEAN CORPUSCULAR VOLUME 87.8 FL (78-98); MEAN PLATELET VOLUME 8.8 FL (7.4-10.4); PLATELET COUNT 107 X10'3 (140-440); RED BLOOD COUNT 2.69 X10'6 (4.70-6.10); RED CELL DISTRIBUTION WIDTH 15.5 % (11.5-14.5)
[2018-04-04 13:02] LABS: OCCULT BLOOD STOOL POSITIVE (Neg)
[2018-04-04] MEDS ORDERED: carVEDilol 12.5mg tablet PO ONE (14:10)
[2018-04-04] MEDS: ipratropium/albuterol 3ml nebule NEB SCH ×2 (14:45→21:09)
[2018-04-04 16:17] LABS: BASOPHILS % (AUTO) 0.2 % (0-1); EOSINOPHILS # (AUTO) 0.2 X10'3 (0-0.9); EOSINOPHILS % (AUTO) 1.3 % (0-6); LYMPHOCYTES % (AUTO) 8.2 % (21-51); MEAN CORPUSCULAR HEMOGLOBIN 29.7 PG (27.0-31.0); MEAN CORPUSCULAR HGB CONC 33.6 % (33.0-36.5); MEAN CORPUSCULAR VOLUME 88.4 FL (78-98); MONOCYTES # (AUTO) 0.8 X10'3 (0-0.9); MONOCYTES % (AUTO) 6.7 % (2-12); NEUTROPHILS % (AUTO) 83.6 % (42-75); PLATELET COUNT 118 X10'3 (140-440); RED BLOOD COUNT 2.24 X10'6 (4.70-6.10); WHITE BLOOD COUNT 11.9 X10'3 (4.5-11.0)
[2018-04-04 16:23] LABS: HEMATOCRIT 19.8 % (42.0-52.0); HEMOGLOBIN 6.6 g/dl (14.0-17.9)
[2018-04-04 17:17] LABS: MEAN CORPUSCULAR HEMOGLOBIN 30.4 PG (27.0-31.0); MEAN CORPUSCULAR HGB CONC 35.1 % (33.0-36.5); MEAN CORPUSCULAR VOLUME 86.4 FL (78-98); MEAN PLATELET VOLUME 9.6 FL (7.4-10.4); PLATELET COUNT 121 X10'3 (140-440); RED BLOOD COUNT 2.18 X10'6 (4.70-6.10); RED CELL DISTRIBUTION WIDTH 15.4 % (11.5-14.5); WHITE BLOOD COUNT 12.4 X10'3 (4.5-11.0)
[2018-04-04 17:18] LABS: HEMOGLOBIN 6.6 g/dl (14.0-17.9)
[2018-04-04 17:19] LABS: HEMATOCRIT 18.8 % (42.0-52.0)
[2018-04-04] MEDS: insulin glargine (Lantus) pen - multi-dose SQ SCH (21:22)
[2018-04-04 22:33] LABS: BASOPHILS % (AUTO) 0.2 % (0-1); EOSINOPHILS # (AUTO) 0.3 X10'3 (0-0.9); HEMATOCRIT 25.4 % (42.0-52.0); HEMOGLOBIN 8.7 g/dl (14.0-17.9); LYMPHOCYTES # (AUTO) 1.1 X10'3 (1.1-4.8); LYMPHOCYTES % (AUTO) 8.6 % (21-51); MEAN CORPUSCULAR HEMOGLOBIN 30.1 PG (27.0-31.0); MEAN CORPUSCULAR HGB CONC 34.1 % (33.0-36.5); MEAN CORPUSCULAR VOLUME 88.2 FL (78-98); MEAN PLATELET VOLUME 9.1 FL (7.4-10.4); MONOCYTES # (AUTO) 0.9 X10'3 (0-0.9); MONOCYTES % (AUTO) 6.8 % (2-12); NEUTROPHILS # (AUTO) 10.4 X10'3 (1.8-7.7); NEUTROPHILS % (AUTO) 82.4 % (42-75); PLATELET COUNT 114 X10'3 (140-440); RED BLOOD COUNT 2.88 X10'6 (4.70-6.10); RED CELL DISTRIBUTION WIDTH 15.2 % (11.5-14.5); WHITE BLOOD COUNT 12.6 X10'3 (4.5-11.0)
[2018-04-05] VITALS (30 sets, daily range): BP systolic 85–174; BP diastolic 60–93
[2018-04-05 00:22] LABS: BASOPHILS # (AUTO) 0.1 X10'3 (0-0.2); BASOPHILS % (AUTO) 0.4 % (0-1); EOSINOPHILS # (AUTO) 0.2 X10'3 (0-0.9); EOSINOPHILS % (AUTO) 1.9 % (0-6); HEMATOCRIT 24.6 % (42.0-52.0); HEMOGLOBIN 8.5 g/dl (14.0-17.9); LYMPHOCYTES # (AUTO) 1.1 X10'3 (1.1-4.8); LYMPHOCYTES % (AUTO) 8.7 % (21-51); MEAN CORPUSCULAR HEMOGLOBIN 30.7 PG (27.0-31.0); MEAN CORPUSCULAR HGB CONC 34.7 % (33.0-36.5); MEAN CORPUSCULAR VOLUME 88.5 FL (78-98); MEAN PLATELET VOLUME 8.6 FL (7.4-10.4); MONOCYTES # (AUTO) 0.8 X10'3 (0-0.9); MONOCYTES % (AUTO) 6.2 % (2-12); NEUTROPHILS # (AUTO) 10.6 X10'3 (1.8-7.7); NEUTROPHILS % (AUTO) 82.8 % (42-75); PLATELET COUNT 109 X10'3 (140-440); RED BLOOD COUNT 2.78 X10'6 (4.70-6.10); RED CELL DISTRIBUTION WIDTH 15.1 % (11.5-14.5); WHITE BLOOD COUNT 12.8 X10'3 (4.5-11.0)
[2018-04-05] MEDS: HYDROmorphone/NS 1 mg/ml CADD 50 ML IV SCH ×12 (01:00→23:00)
[2018-04-05] MEDS: normal saline 1000ml 1,000 ML IV SCH ×3 (01:15→22:28)
[2018-04-05] MEDS: ipratropium/albuterol 3ml nebule NEB SCH ×4 (02:17→20:09)
[2018-04-05 04:21] LABS: BASOPHILS # (AUTO) 0.1 X10'3 (0-0.2); BASOPHILS % (AUTO) 0.4 % (0-1); EOSINOPHILS # (AUTO) 0.1 X10'3 (0-0.9); EOSINOPHILS % (AUTO) 1.1 % (0-6); HEMATOCRIT 23.7 % (42.0-52.0); HEMOGLOBIN 8.1 g/dl (14.0-17.9); LYMPHOCYTES # (AUTO) 1.2 X10'3 (1.1-4.8); LYMPHOCYTES % (AUTO) 9.6 % (21-51); MEAN CORPUSCULAR HEMOGLOBIN 30.9 PG (27.0-31.0); MEAN CORPUSCULAR HGB CONC 34.1 % (33.0-36.5); MEAN CORPUSCULAR VOLUME 90.5 FL (78-98); MEAN PLATELET VOLUME 8.4 FL (7.4-10.4); MONOCYTES # (AUTO) 0.7 X10'3 (0-0.9); MONOCYTES % (AUTO) 5.8 % (2-12); NEUTROPHILS # (AUTO) 10.1 X10'3 (1.8-7.7); NEUTROPHILS % (AUTO) 83.1 % (42-75); PLATELET COUNT 110 X10'3 (140-440); RED BLOOD COUNT 2.62 X10'6 (4.70-6.10); WHITE BLOOD COUNT 12.2 X10'3 (4.5-11.0)
[2018-04-05 04:44] LABS: ALANINE AMINOTRANSFERASE 39 U/L (12-78); ALBUMIN 1.7 G/DL (3.4-5.0); ALBUMIN/GLOBULIN RATIO 0.7 (1.1-1.5); ALKALINE PHOSPHATASE 47 IU/L (46-116); ANION GAP 10 (8-16); ASPARTATE AMINO TRANSFERASE 39 U/L (10-37); BILIRUBIN,TOTAL 0.4 MG/DL (0.1-1.0); BLOOD UREA NITROGEN 24 MG/DL (7-18); BUN/CREATININE RATIO 17.5 (5.4-32.0); CALCIUM 7.4 MG/DL (8.5-10.1); CHLORIDE 114 MMOL/L (99-107); CREATININE 1.37 MG/DL (0.60-1.10); GLUCOSE 132 MG/DL (70-104); MAGNESIUM 1.5 MG/DL (1.5-2.4); POTASSIUM 4.6 MMOL/L (3.5-5.1); SODIUM 146 MMOL/L (135-145); TOTAL CARBON DIOXIDE 22.3 MMOL/L (24-32); TOTAL PROTEIN 4.2 G/DL (6.4-8.2); eGFR 53 ML/MIN
[2018-04-05] MEDS: carVEDilol 12.5mg tablet PO SCH ×2 (08:57→20:08)
[2018-04-05] MEDS: atorvastatin 20mg tablet PO SCH (08:57)
[2018-04-05] MEDS: sodium ferric gluc complex inj 125 MG in normal saline 100ml IV soln 100 ML IV SCH (08:58)
[2018-04-05 12:58] LABS: BASOPHILS % (AUTO) 0.1 % (0-1); EOSINOPHILS % (AUTO) 0.1 % (0-6); LYMPHOCYTES # (AUTO) 1.2 X10'3 (1.1-4.8); LYMPHOCYTES % (AUTO) 9.4 % (21-51); MEAN CORPUSCULAR HEMOGLOBIN 30.4 PG (27.0-31.0); MEAN CORPUSCULAR HGB CONC 33.2 % (33.0-36.5); MEAN CORPUSCULAR VOLUME 91.5 FL (78-98); MEAN PLATELET VOLUME 8.7 FL (7.4-10.4); MONOCYTES # (AUTO) 0.6 X10'3 (0-0.9); MONOCYTES % (AUTO) 4.6 % (2-12); NEUTROPHILS # (AUTO) 11.2 X10'3 (1.8-7.7); NEUTROPHILS % (AUTO) 85.8 % (42-75); PLATELET COUNT 118 X10'3 (140-440); RED BLOOD COUNT 2.01 X10'6 (4.70-6.10); RED CELL DISTRIBUTION WIDTH 15.1 % (11.5-14.5)
[2018-04-05 13:01] LABS: HEMATOCRIT 18.4 % (42.0-52.0); HEMOGLOBIN 6.1 g/dl (14.0-17.9)
[2018-04-05 13:10] LABS: INR 1.2 INR; PROTHROMBIN TIME 12.7 SECONDS (9.0-12.0)
[2018-04-05] MEDS ORDERED: fentaNYL/PF 50MCG/1 ML 2ML syringe IV PRN (13:20)
[2018-04-05] MEDS ORDERED: midazolam 2 mg/2 ml injection IV PRN (13:20)
[2018-04-05] MEDS ORDERED: LIDOcaine 1%/PF 5ML 10 MG/ML VIAL ONE (13:43)
[2018-04-05] MEDS ORDERED: iohexol 300 MG/1 ML 50ml polymer ONE ×2 (13:43→14:43)
[2018-04-05] MEDS ORDERED: iohexol 300mg/ml 100ml inj. ONE ×2 (13:43→14:50)
[2018-04-05] MEDS ORDERED: heparin 1,000 UNITS/NS 500ml 500 ML ONE (14:15)
[2018-04-05] MEDS ORDERED: glucagon, human recombinant 1mg kit ONE (14:15)
[2018-04-05] MEDS ORDERED: nitroGLYCERIN-Tridil 50MG/D5W 250 ML IV ONE (14:27)
[2018-04-05] MEDS ORDERED: fentaNYL/PF 50MCG/1 ML 2ML syringe ONE (14:40)
[2018-04-05] MEDS ORDERED: heparin sodium, porcine/PF 100unit/ml 5ML syringe ONE (15:48)
[2018-04-05 18:42] LABS: BASOPHILS % (AUTO) 0.3 % (0-1); EOSINOPHILS # (AUTO) 0.3 X10'3 (0-0.9); EOSINOPHILS % (AUTO) 2.2 % (0-6); HEMOGLOBIN 8.1 g/dl (14.0-17.9); LYMPHOCYTES % (AUTO) 7.2 % (21-51); MEAN CORPUSCULAR HEMOGLOBIN 30.2 PG (27.0-31.0); MEAN CORPUSCULAR HGB CONC 33.8 % (33.0-36.5); MEAN CORPUSCULAR VOLUME 89.3 FL (78-98); MEAN PLATELET VOLUME 8.1 FL (7.4-10.4); MONOCYTES # (AUTO) 0.7 X10'3 (0-0.9); MONOCYTES % (AUTO) 4.6 % (2-12); NEUTROPHILS # (AUTO) 12.3 X10'3 (1.8-7.7); NEUTROPHILS % (AUTO) 85.7 % (42-75); PLATELET COUNT 113 X10'3 (140-440); RED BLOOD COUNT 2.68 X10'6 (4.70-6.10); RED CELL DISTRIBUTION WIDTH 14.7 % (11.5-14.5); WHITE BLOOD COUNT 14.3 X10'3 (4.5-11.0)
[2018-04-05 19:30] LABS: INR 1.2 INR; PARTIAL THROMBOPLASTIN TIME 28 SECONDS (22-32)
[2018-04-05] MEDS: pantoprazole 40MG/NS 100ML BAG 100 ML IV SCH (20:08)
[2018-04-05] MEDS: insulin glargine (Lantus) pen - multi-dose SQ SCH (20:18)
[2018-04-05 22:31] LABS: BASOPHILS % (AUTO) 0 % (0-1); EOSINOPHILS # (AUTO) 0.2 X10'3 (0-0.9); EOSINOPHILS % (AUTO) 1.2 % (0-6); HEMATOCRIT 23.6 % (42.0-52.0); LYMPHOCYTES # (AUTO) 1.2 X10'3 (1.1-4.8); LYMPHOCYTES % (AUTO) 8.9 % (21-51); MEAN CORPUSCULAR HEMOGLOBIN 30.5 PG (27.0-31.0); MEAN CORPUSCULAR VOLUME 89.7 FL (78-98); MEAN PLATELET VOLUME 8.2 FL (7.4-10.4); MONOCYTES # (AUTO) 0.6 X10'3 (0-0.9); MONOCYTES % (AUTO) 4.7 % (2-12); NEUTROPHILS # (AUTO) 11.1 X10'3 (1.8-7.7); NEUTROPHILS % (AUTO) 85.2 % (42-75); PLATELET COUNT 112 X10'3 (140-440); RED BLOOD COUNT 2.63 X10'6 (4.70-6.10)
[2018-04-06] VITALS (54 sets, daily range): BP systolic 65–167; BP diastolic 53–95
[2018-04-06] MEDS: HYDROmorphone/NS 1 mg/ml CADD 50 ML IV SCH ×12 (01:00→23:00)
[2018-04-06] MEDS: pantoprazole 40MG/NS 100ML BAG 100 ML IV SCH ×5 (01:24→21:49)
[2018-04-06 02:45] LABS: BASOPHILS % (AUTO) 0.1 % (0-1); EOSINOPHILS # (AUTO) 0.3 X10'3 (0-0.9); EOSINOPHILS % (AUTO) 2.5 % (0-6); HEMATOCRIT 22.3 % (42.0-52.0); HEMOGLOBIN 7.6 g/dl (14.0-17.9); LYMPHOCYTES # (AUTO) 0.9 X10'3 (1.1-4.8); LYMPHOCYTES % (AUTO) 8.4 % (21-51); MEAN CORPUSCULAR HEMOGLOBIN 30.9 PG (27.0-31.0); MEAN CORPUSCULAR HGB CONC 34.2 % (33.0-36.5); MEAN CORPUSCULAR VOLUME 90.4 FL (78-98); MEAN PLATELET VOLUME 8.4 FL (7.4-10.4); MONOCYTES # (AUTO) 0.5 X10'3 (0-0.9); MONOCYTES % (AUTO) 4.6 % (2-12); NEUTROPHILS # (AUTO) 9.5 X10'3 (1.8-7.7); NEUTROPHILS % (AUTO) 84.4 % (42-75); PLATELET COUNT 108 X10'3 (140-440); RED BLOOD COUNT 2.47 X10'6 (4.70-6.10); RED CELL DISTRIBUTION WIDTH 14.8 % (11.5-14.5); WHITE BLOOD COUNT 11.2 X10'3 (4.5-11.0)
[2018-04-06 03:00] LABS: ANION GAP 9 (8-16); BLOOD UREA NITROGEN 21 MG/DL (7-18); BUN/CREATININE RATIO 20.8 (5.4-32.0); CHLORIDE 112 MMOL/L (99-107); CREATININE 1.01 MG/DL (0.60-1.10); GLUCOSE 97 MG/DL (70-104); SODIUM 141 MMOL/L (135-145); TOTAL CARBON DIOXIDE 20.1 MMOL/L (24-32)
[2018-04-06 03:01] LABS: ALANINE AMINOTRANSFERASE 29 U/L (12-78); ALBUMIN 1.5 G/DL (3.4-5.0); ALBUMIN/GLOBULIN RATIO 0.6 (1.1-1.5); ALKALINE PHOSPHATASE 43 IU/L (46-116); ASPARTATE AMINO TRANSFERASE 25 U/L (10-37); BILIRUBIN,TOTAL 0.3 MG/DL (0.1-1.0); CALCIUM 7.4 MG/DL (8.5-10.1); MAGNESIUM 1.7 MG/DL (1.5-2.4); TOTAL PROTEIN 3.9 G/DL (6.4-8.2); eGFR 75 ML/MIN
[2018-04-06] MEDS: ipratropium/albuterol 3ml nebule NEB SCH ×4 (03:16→21:34)
[2018-04-06 06:39] LABS: BASOPHILS % (AUTO) 0.4 % (0-1); EOSINOPHILS # (AUTO) 0.3 X10'3 (0-0.9); EOSINOPHILS % (AUTO) 2.7 % (0-6); HEMATOCRIT 27.8 % (42.0-52.0); HEMOGLOBIN 9.4 g/dl (14.0-17.9); LYMPHOCYTES # (AUTO) 0.8 X10'3 (1.1-4.8); LYMPHOCYTES % (AUTO) 7.3 % (21-51); MEAN CORPUSCULAR HEMOGLOBIN 30.2 PG (27.0-31.0); MEAN CORPUSCULAR HGB CONC 33.8 % (33.0-36.5); MEAN CORPUSCULAR VOLUME 89.4 FL (78-98); MEAN PLATELET VOLUME 7.7 FL (7.4-10.4); MONOCYTES # (AUTO) 0.5 X10'3 (0-0.9); MONOCYTES % (AUTO) 4.3 % (2-12); NEUTROPHILS # (AUTO) 9.6 X10'3 (1.8-7.7); NEUTROPHILS % (AUTO) 85.3 % (42-75); PLATELET COUNT 110 X10'3 (140-440); RED BLOOD COUNT 3.12 X10'6 (4.70-6.10); RED CELL DISTRIBUTION WIDTH 15.3 % (11.5-14.5); WHITE BLOOD COUNT 11.3 X10'3 (4.5-11.0)
[2018-04-06] MEDS: sodium ferric gluc complex inj 125 MG in normal saline 100ml IV soln 100 ML IV SCH (07:25)
[2018-04-06] MEDS: normal saline 1000ml 1,000 ML IV SCH ×2 (07:25→17:27)
[2018-04-06] MEDS: atorvastatin 20mg tablet PO SCH (07:27)
[2018-04-06] MEDS: carVEDilol 12.5mg tablet PO SCH ×2 (07:27→19:18)
[2018-04-06 10:54] LABS: BASOPHILS # (AUTO) 0.1 X10'3 (0-0.2); BASOPHILS % (AUTO) 0.8 % (0-1); EOSINOPHILS # (AUTO) 0.2 X10'3 (0-0.9); EOSINOPHILS % (AUTO) 2.1 % (0-6); HEMATOCRIT 30.4 % (42.0-52.0); HEMOGLOBIN 10.3 g/dl (14.0-17.9); LYMPHOCYTES # (AUTO) 0.8 X10'3 (1.1-4.8); LYMPHOCYTES % (AUTO) 6.9 % (21-51); MEAN CORPUSCULAR HEMOGLOBIN 30.2 PG (27.0-31.0); MEAN CORPUSCULAR HGB CONC 33.9 % (33.0-36.5); MEAN PLATELET VOLUME 8.2 FL (7.4-10.4); MONOCYTES # (AUTO) 0.4 X10'3 (0-0.9); MONOCYTES % (AUTO) 3.8 % (2-12); NEUTROPHILS # (AUTO) 9.8 X10'3 (1.8-7.7); NEUTROPHILS % (AUTO) 86.4 % (42-75); PLATELET COUNT 118 X10'3 (140-440); RED BLOOD COUNT 3.41 X10'6 (4.70-6.10); RED CELL DISTRIBUTION WIDTH 14.9 % (11.5-14.5); WHITE BLOOD COUNT 11.3 X10'3 (4.5-11.0)
[2018-04-06 14:08] LABS: BASOPHILS % (AUTO) 0.1 % (0-1); EOSINOPHILS # (AUTO) 0.3 X10'3 (0-0.9); EOSINOPHILS % (AUTO) 2.6 % (0-6); HEMATOCRIT 28.5 % (42.0-52.0); HEMOGLOBIN 9.6 g/dl (14.0-17.9); LYMPHOCYTES # (AUTO) 0.7 X10'3 (1.1-4.8); LYMPHOCYTES % (AUTO) 6.7 % (21-51); MEAN CORPUSCULAR HEMOGLOBIN 30.3 PG (27.0-31.0); MEAN CORPUSCULAR HGB CONC 33.6 % (33.0-36.5); MEAN CORPUSCULAR VOLUME 90.2 FL (78-98); MEAN PLATELET VOLUME 8.2 FL (7.4-10.4); MONOCYTES # (AUTO) 0.4 X10'3 (0-0.9); MONOCYTES % (AUTO) 4.3 % (2-12); NEUTROPHILS # (AUTO) 8.9 X10'3 (1.8-7.7); NEUTROPHILS % (AUTO) 86.3 % (42-75); PLATELET COUNT 116 X10'3 (140-440); RED BLOOD COUNT 3.16 X10'6 (4.70-6.10); WHITE BLOOD COUNT 10.3 X10'3 (4.5-11.0)
[2018-04-06] MEDS ORDERED: LIDOcaine Viscous 15ml cup ONE (17:29)
[2018-04-06] MEDS ORDERED: MIDAZolam 5mg/5ml vial ONE (17:29)
[2018-04-06] MEDS ORDERED: fentaNYL/PF 50MCG/1 ML 2ML syringe ONE (17:29)
[2018-04-06 17:32] LABS: BASOPHILS # (AUTO) 0.1 X10'3 (0-0.2); BASOPHILS % (AUTO) 0.5 % (0-1); EOSINOPHILS # (AUTO) 0.3 X10'3 (0-0.9); EOSINOPHILS % (AUTO) 2.6 % (0-6); HEMOGLOBIN 8.5 g/dl (14.0-17.9); LYMPHOCYTES # (AUTO) 1.3 X10'3 (1.1-4.8); LYMPHOCYTES % (AUTO) 11.9 % (21-51); MEAN CORPUSCULAR HEMOGLOBIN 30.3 PG (27.0-31.0); MEAN CORPUSCULAR VOLUME 89.2 FL (78-98); MEAN PLATELET VOLUME 8.2 FL (7.4-10.4); MONOCYTES # (AUTO) 0.4 X10'3 (0-0.9); MONOCYTES % (AUTO) 4.1 % (2-12); NEUTROPHILS # (AUTO) 8.5 X10'3 (1.8-7.7); NEUTROPHILS % (AUTO) 80.9 % (42-75); PLATELET COUNT 152 X10'3 (140-440); RED BLOOD COUNT 2.81 X10'6 (4.70-6.10); RED CELL DISTRIBUTION WIDTH 15.3 % (11.5-14.5); WHITE BLOOD COUNT 10.5 X10'3 (4.5-11.0)
[2018-04-06] MEDS ORDERED: NORepinephrine 8mg/ 250ml NS 250 ML IV ONE (19:08)
[2018-04-06 19:12] LABS: BASOPHILS % (AUTO) 0.1 % (0-1); EOSINOPHILS # (AUTO) 0.3 X10'3 (0-0.9); EOSINOPHILS % (AUTO) 2.5 % (0-6); HEMOGLOBIN 7.6 g/dl (14.0-17.9); LYMPHOCYTES # (AUTO) 0.9 X10'3 (1.1-4.8); LYMPHOCYTES % (AUTO) 6.3 % (21-51); MEAN CORPUSCULAR HEMOGLOBIN 30.8 PG (27.0-31.0); MEAN CORPUSCULAR HGB CONC 34.5 % (33.0-36.5); MEAN CORPUSCULAR VOLUME 89.2 FL (78-98); MEAN PLATELET VOLUME 8.2 FL (7.4-10.4); MONOCYTES # (AUTO) 0.6 X10'3 (0-0.9); MONOCYTES % (AUTO) 4.6 % (2-12); NEUTROPHILS % (AUTO) 86.5 % (42-75); PLATELET COUNT 133 X10'3 (140-440); RED BLOOD COUNT 2.46 X10'6 (4.70-6.10); WHITE BLOOD COUNT 13.9 X10'3 (4.5-11.0)
[2018-04-06] MEDS: NORepinephrine 8mg/ 250ml NS 250 ML IV SCH (19:17)
[2018-04-06 19:20] LABS: HEMATOCRIT 21.9 % (42.0-52.0)
[2018-04-06 19:21] LABS: ABG HCO3 14.6 mmol/L (22.0-26.0); ABG OXYGEN SATURATION 96.1 % (95-98); ABG PCO2 (T) 28.5 mmHg (35.0-48.0); ABG PH (T) 7.332 (7.350-7.450); ABG PO2 (T) 102.8 mmHg (83-108); ALLEN'S TEST Positive; FCOHb 0.3 % (0.5-1.5); FLOW 4 L/min; FMetHb 0.4 % (0.3-1.12); FO2Hb 95.4 % (94-100); RESPIRATORY RATE (OBSERVED) 25 b/min; TOTAL HEMOGLOBIN 8.2 G/dl (14.0-18.0)
[2018-04-06] MEDS ORDERED: normal saline 1000ml 1,000 ML IV ONE (19:25)
[2018-04-06 19:26] LABS: ALANINE AMINOTRANSFERASE 34 U/L (12-78); ALBUMIN 1.3 G/DL (3.4-5.0); ALBUMIN/GLOBULIN RATIO 0.6 (1.1-1.5); ALKALINE PHOSPHATASE 271 IU/L (46-116); ANION GAP 8 (8-16); ASPARTATE AMINO TRANSFERASE 44 U/L (10-37); BILIRUBIN,TOTAL 0.5 MG/DL (0.1-1.0); BLOOD UREA NITROGEN 20 MG/DL (7-18); BUN/CREATININE RATIO 17.1 (5.4-32.0); CALCIUM 6.8 MG/DL (8.5-10.1); CHLORIDE 115 MMOL/L (99-107); CREATININE 1.17 MG/DL (0.60-1.10); GLUCOSE 141 MG/DL (70-104); MAGNESIUM 1.5 MG/DL (1.5-2.4); POTASSIUM 4.3 MMOL/L (3.5-5.1); SODIUM 143 MMOL/L (135-145); TOTAL PROTEIN 3.6 G/DL (6.4-8.2); eGFR 63 ML/MIN
[2018-04-06 19:34] LABS: D-DIMER 13.27 MG/L FEU (0-0.50); INR 1.3 INR; PARTIAL THROMBOPLASTIN TIME 26 SECONDS (22-32); PROTHROMBIN TIME 13.2 SECONDS (9.0-12.0)
[2018-04-06] MEDS: piperacillin/tazo 3.375gm/50ml 50 ML IV SCH ×2 (19:50→20:00)
[2018-04-06] MEDS ORDERED: levoFLOXACIN-Levaquin 250mg/D5 50 ML IV SCH (20:00)
[2018-04-06] MEDS ORDERED: calcium chloride inj. 2,000 MG in normal saline 100ml IV soln 80 ML IV ONE (21:30)
[2018-04-07] VITALS (43 sets, daily range): BP systolic 66–166; BP diastolic 50–110
[2018-04-07 00:33] LABS: BASOPHILS % (AUTO) 0 % (0-1); EOSINOPHILS # (AUTO) 0.3 X10'3 (0-0.9); EOSINOPHILS % (AUTO) 1.8 % (0-6); HEMATOCRIT 25.3 % (42.0-52.0); HEMOGLOBIN 8.5 g/dl (14.0-17.9); LYMPHOCYTES % (AUTO) 6.6 % (21-51); MEAN CORPUSCULAR HEMOGLOBIN 30.4 PG (27.0-31.0); MEAN CORPUSCULAR HGB CONC 33.7 % (33.0-36.5); MEAN CORPUSCULAR VOLUME 90.2 FL (78-98); MEAN PLATELET VOLUME 8.5 FL (7.4-10.4); MONOCYTES # (AUTO) 0.8 X10'3 (0-0.9); MONOCYTES % (AUTO) 5.2 % (2-12); NEUTROPHILS # (AUTO) 12.8 X10'3 (1.8-7.7); NEUTROPHILS % (AUTO) 86.4 % (42-75); PLATELET COUNT 128 X10'3 (140-440); RED BLOOD COUNT 2.81 X10'6 (4.70-6.10); RED CELL DISTRIBUTION WIDTH 14.4 % (11.5-14.5); WHITE BLOOD COUNT 14.9 X10'3 (4.5-11.0)
[2018-04-07] MEDS: HYDROmorphone/NS 1 mg/ml CADD 50 ML IV SCH ×3 (01:00→05:00)
[2018-04-07] MEDS: piperacillin/tazo 3.375gm/50ml 50 ML IV SCH ×4 (02:26→21:27)
[2018-04-07] MEDS: pantoprazole 40MG/NS 100ML BAG 100 ML IV SCH ×5 (02:30→21:27)
[2018-04-07] MEDS: normal saline 1000ml 1,000 ML IV SCH ×2 (03:10→08:07)
[2018-04-07 03:57] LABS: BASOPHILS % (AUTO) 0 % (0-1); EOSINOPHILS # (AUTO) 0.2 X10'3 (0-0.9); EOSINOPHILS % (AUTO) 1.4 % (0-6); HEMATOCRIT 24.6 % (42.0-52.0); HEMOGLOBIN 8.4 g/dl (14.0-17.9); MEAN CORPUSCULAR HEMOGLOBIN 30.6 PG (27.0-31.0); MEAN CORPUSCULAR HGB CONC 34.1 % (33.0-36.5); MEAN CORPUSCULAR VOLUME 89.8 FL (78-98); MEAN PLATELET VOLUME 8.5 FL (7.4-10.4); MONOCYTES # (AUTO) 0.1 X10'3 (0-0.9); MONOCYTES % (AUTO) 0.5 % (2-12); NEUTROPHILS # (AUTO) 12.9 X10'3 (1.8-7.7); NEUTROPHILS % (AUTO) 91.1 % (42-75); PLATELET COUNT 130 X10'3 (140-440); RED BLOOD COUNT 2.74 X10'6 (4.70-6.10); RED CELL DISTRIBUTION WIDTH 14.9 % (11.5-14.5); WHITE BLOOD COUNT 14.1 X10'3 (4.5-11.0)
[2018-04-07] MEDS: ipratropium/albuterol 3ml nebule NEB SCH ×4 (04:06→22:40)
[2018-04-07 05:13] LABS: ALANINE AMINOTRANSFERASE 32 U/L (12-78); ALBUMIN 1.2 G/DL (3.4-5.0); ALBUMIN/GLOBULIN RATIO 0.6 (1.1-1.5); ALKALINE PHOSPHATASE 222 IU/L (46-116); ANION GAP 14 (8-16); ASPARTATE AMINO TRANSFERASE 31 U/L (10-37); BILIRUBIN,TOTAL 0.4 MG/DL (0.1-1.0); BLOOD UREA NITROGEN 21 MG/DL (7-18); BUN/CREATININE RATIO 20.8 (5.4-32.0); CALCIUM 7.3 MG/DL (8.5-10.1); CHLORIDE 115 MMOL/L (99-107); CREATININE 1.01 MG/DL (0.60-1.10); GLUCOSE 132 MG/DL (70-104); POTASSIUM 4.5 MMOL/L (3.5-5.1); SODIUM 145 MMOL/L (135-145); TOTAL CARBON DIOXIDE 16.2 MMOL/L (24-32); TOTAL PROTEIN 3.3 G/DL (6.4-8.2); eGFR 75 ML/MIN
[2018-04-07 05:57] LABS: BASOPHILS % (AUTO) 0.1 % (0-1); EOSINOPHILS # (AUTO) 0.3 X10'3 (0-0.9); LYMPHOCYTES # (AUTO) 1.5 X10'3 (1.1-4.8); LYMPHOCYTES % (AUTO) 11.3 % (21-51); MEAN CORPUSCULAR HEMOGLOBIN 30.4 PG (27.0-31.0); MEAN CORPUSCULAR HGB CONC 34.4 % (33.0-36.5); MEAN CORPUSCULAR VOLUME 88.4 FL (78-98); MEAN PLATELET VOLUME 8.5 FL (7.4-10.4); MONOCYTES # (AUTO) 0.6 X10'3 (0-0.9); MONOCYTES % (AUTO) 4.5 % (2-12); NEUTROPHILS # (AUTO) 11.1 X10'3 (1.8-7.7); NEUTROPHILS % (AUTO) 82.1 % (42-75); PLATELET COUNT 161 X10'3 (140-440); RED BLOOD COUNT 2.31 X10'6 (4.70-6.10); RED CELL DISTRIBUTION WIDTH 14.8 % (11.5-14.5); WHITE BLOOD COUNT 13.5 X10'3 (4.5-11.0)
[2018-04-07 06:05] LABS: HEMATOCRIT 20.4 % (42.0-52.0)
[2018-04-07 06:09] LABS: INR 1.3 INR; PARTIAL THROMBOPLASTIN TIME 26 SECONDS (22-32); PROTHROMBIN TIME 13.4 SECONDS (9.0-12.0)
[2018-04-07] MEDS: NORepinephrine 8mg/ 250ml NS 250 ML IV SCH (07:59)
[2018-04-07] MEDS: carVEDilol 12.5mg tablet PO SCH ×2 (08:00→20:00)
[2018-04-07] MEDS: atorvastatin 20mg tablet PO SCH (08:00)
[2018-04-07] MEDS ORDERED: desflurane 240ml liquid inh. IH ONE (08:05)
[2018-04-07 11:06] LABS: ABG BASE EXCESS -9.8 mmol/L (-2.0-3.0); ABG HCO3 15.5 mmol/L (22.0-26.0); ABG OXYGEN SATURATION 97.5 % (95-98); ABG PCO2 (T) 31.4 mmHg (35.0-48.0); ABG PH (T) 7.309 (7.350-7.450); ABG PO2 (T) 112.9 mmHg (83-108); FCOHb 0.2 % (0.5-1.5); FMetHb 0.2 % (0.3-1.12); FO2Hb 97.1 % (94-100); PATIENT TEMPERATURE 36.8; TOTAL HEMOGLOBIN 10.2 G/dl (14.0-18.0)
[2018-04-07 11:12] LABS: BASOPHILS % (AUTO) 0 % (0-1); EOSINOPHILS # (AUTO) 0.2 X10'3 (0-0.9); EOSINOPHILS % (AUTO) 1.2 % (0-6); HEMATOCRIT 28.2 % (42.0-52.0); HEMOGLOBIN 9.6 g/dl (14.0-17.9); LYMPHOCYTES # (AUTO) 1.1 X10'3 (1.1-4.8); LYMPHOCYTES % (AUTO) 8.6 % (21-51); MEAN CORPUSCULAR HEMOGLOBIN 31.3 PG (27.0-31.0); MEAN CORPUSCULAR HGB CONC 34.1 % (33.0-36.5); MEAN CORPUSCULAR VOLUME 91.7 FL (78-98); MEAN PLATELET VOLUME 8.5 FL (7.4-10.4); MONOCYTES # (AUTO) 0.7 X10'3 (0-0.9); MONOCYTES % (AUTO) 5.4 % (2-12); NEUTROPHILS # (AUTO) 11.1 X10'3 (1.8-7.7); NEUTROPHILS % (AUTO) 84.8 % (42-75); PLATELET COUNT 130 X10'3 (140-440); RED BLOOD COUNT 3.08 X10'6 (4.70-6.10); WHITE BLOOD COUNT 13.1 X10'3 (4.5-11.0)
[2018-04-07 11:16] LABS: ISTAT HGB 8.2 g/dl (14.0-18.0); ISTAT IONIZED CALCIUM 1.12 mmol/L (1.03-1.32); ISTAT K 4.8 mmol/L (3.5-5.1)
[2018-04-07 11:21] LABS: ALBUMIN 1.2 G/DL (3.4-5.0); ANION GAP 12 (8-16); BLOOD UREA NITROGEN 24 MG/DL (7-18); BUN/CREATININE RATIO 22.2 (5.4-32.0); CALCIUM 6.8 MG/DL (8.5-10.1); CHLORIDE 116 MMOL/L (99-107); CREATININE 1.08 MG/DL (0.60-1.10); GLUCOSE 169 MG/DL (70-104); POTASSIUM 4.9 MMOL/L (3.5-5.1); SODIUM 147 MMOL/L (135-145); TOTAL CARBON DIOXIDE 19.3 MMOL/L (24-32); eGFR 69 ML/MIN
[2018-04-07 11:34] LABS: ANISOCYTOSIS 1+; NUCLEATED RED BLOOD CELLS 6 /100WBC (0-0); PLATELET ESTIMATE DECREASED; POIKILOCYTOSIS 1+; POLYCHROMASIA 3+; TOTAL CELLS COUNTED 100
[2018-04-07] MEDS: sodium ferric gluc complex inj 125 MG in normal saline 100ml IV soln 100 ML IV SCH (12:59)
[2018-04-07] MEDS: sodium bicarbonate (8.4%) inj. 50 MEQ in sodium chloride 0.45% 1,000 ML IV SCH ×2 (12:59→21:27)
[2018-04-07] MEDS: midazolam 100mg in NS 100ml 100 ML IV PRN (13:00)
[2018-04-07] MEDS: FENTANYL-0.9 % NACL/PF 100 ML IV PRN (13:01)
[2018-04-07] MEDS: vasopressin inj. 60 UNIT in normal saline 100ml IV soln 97 ML IV SCH (13:47)
[2018-04-07 14:24] LABS: BASOPHILS % (AUTO) 0.2 % (0-1); EOSINOPHILS # (AUTO) 0.1 X10'3 (0-0.9); EOSINOPHILS % (AUTO) 0.4 % (0-6); HEMOGLOBIN 11.1 g/dl (14.0-17.9); LYMPHOCYTES # (AUTO) 1.2 X10'3 (1.1-4.8); LYMPHOCYTES % (AUTO) 8.7 % (21-51); MEAN CORPUSCULAR HEMOGLOBIN 30.3 PG (27.0-31.0); MEAN CORPUSCULAR HGB CONC 33.6 % (33.0-36.5); MEAN CORPUSCULAR VOLUME 90.1 FL (78-98); MEAN PLATELET VOLUME 8.8 FL (7.4-10.4); MONOCYTES # (AUTO) 0.5 X10'3 (0-0.9); MONOCYTES % (AUTO) 3.5 % (2-12); NEUTROPHILS # (AUTO) 11.8 X10'3 (1.8-7.7); NEUTROPHILS % (AUTO) 87.2 % (42-75); PLATELET COUNT 137 X10'3 (140-440); RED BLOOD COUNT 3.66 X10'6 (4.70-6.10); RED CELL DISTRIBUTION WIDTH 15.4 % (11.5-14.5); WHITE BLOOD COUNT 13.5 X10'3 (4.5-11.0)
[2018-04-07] MEDS: acetaminophen 650mg rectal suppository RC PRN (15:27)
[2018-04-07 19:39] LABS: BASOPHILS % (AUTO) 0.1 % (0-1); EOSINOPHILS % (AUTO) 0.1 % (0-6); HEMATOCRIT 31.3 % (42.0-52.0); HEMOGLOBIN 10.8 g/dl (14.0-17.9); LYMPHOCYTES # (AUTO) 0.7 X10'3 (1.1-4.8); LYMPHOCYTES % (AUTO) 3.7 % (21-51); MEAN CORPUSCULAR HEMOGLOBIN 30.6 PG (27.0-31.0); MEAN CORPUSCULAR HGB CONC 34.5 % (33.0-36.5); MEAN CORPUSCULAR VOLUME 88.7 FL (78-98); MEAN PLATELET VOLUME 9.4 FL (7.4-10.4); MONOCYTES # (AUTO) 0.1 X10'3 (0-0.9); MONOCYTES % (AUTO) 0.6 % (2-12); NEUTROPHILS # (AUTO) 18.5 X10'3 (1.8-7.7); NEUTROPHILS % (AUTO) 95.5 % (42-75); PLATELET COUNT 154 X10'3 (140-440); RED BLOOD COUNT 3.53 X10'6 (4.70-6.10); RED CELL DISTRIBUTION WIDTH 15.6 % (11.5-14.5); WHITE BLOOD COUNT 19.4 X10'3 (4.5-11.0)
[2018-04-07] MEDS: acetaminophen 1,000mg/100ml IV 100 ML IV SCH (19:49)
[2018-04-07] MEDS ORDERED: NORepinephrine 8mg/ 250ml NS 250 ML IV ONE (21:58)
[2018-04-07] MEDS ORDERED: NORepinephrine 8mg/ 250ml NS 250 ML IV SCH (22:00)
[2018-04-07 22:21] LABS: HEMATOCRIT 24.8 % (42.0-52.0); HEMOGLOBIN 8.4 g/dl (14.0-17.9); MEAN CORPUSCULAR HEMOGLOBIN 30.5 PG (27.0-31.0); MEAN CORPUSCULAR VOLUME 89.5 FL (78-98); MEAN PLATELET VOLUME 8.7 FL (7.4-10.4); PLATELET COUNT 145 X10'3 (140-440); RED BLOOD COUNT 2.77 X10'6 (4.70-6.10); RED CELL DISTRIBUTION WIDTH 15.5 % (11.5-14.5)
[2018-04-07] MEDS ORDERED: albumin (Human) 5% 250ml 500 ML IV ONE (23:24)
[2018-04-07 23:36] LABS: ABG BASE EXCESS -20.2 mmol/L (-2.0-3.0); ABG HCO3 6.6 mmol/L (22.0-26.0); ABG OXYGEN SATURATION 98.6 % (95-98); ABG PCO2 (T) 19.9 mmHg (35.0-48.0); ABG PH (T) 7.146 (7.350-7.450); ABG PO2 (T) 261.7 mmHg (83-108); FCOHb 0.3 % (0.5-1.5); FMetHb 0.1 % (0.3-1.12); FO2Hb 98.2 % (94-100); MINUTE VOLUME 18 L/min; PATIENT TEMPERATURE 38.1; PEEP 5 cm H2O; RESPIRATORY RATE 12 b/min; TIDAL VOLUME 600 mL; TOTAL HEMOGLOBIN 9.6 G/dl (14.0-18.0)
[2018-04-08] VITALS (40 sets, daily range): BP systolic 95–160; BP diastolic 46–84
[2018-04-08] MEDS ORDERED: sodium bicarbonate (8.4%) 1 mEq/ml syringe ONE (00:01)
[2018-04-08] MEDS ORDERED: phenylephrine inj 10 MG in normal saline 250ml IV soln 250 ML IV PRN (00:06)
[2018-04-08] MEDS ORDERED: phenylephrine 10mg/ml inj. ONE ×2 (00:19→00:23)
[2018-04-08 01:50] LABS: ALANINE AMINOTRANSFERASE 26 U/L (12-78); ALBUMIN 1.4 G/DL (3.4-5.0); ALKALINE PHOSPHATASE 59 IU/L (46-116); ANION GAP 13 (8-16); ASPARTATE AMINO TRANSFERASE 35 U/L (10-37); BILIRUBIN,TOTAL 1.4 MG/DL (0.1-1.0); BLOOD UREA NITROGEN 27 MG/DL (7-18); BUN/CREATININE RATIO 13.8 (5.4-32.0); CALCIUM 6.8 MG/DL (8.5-10.1); CHLORIDE 117 MMOL/L (99-107); CREATININE 1.96 MG/DL (0.60-1.10); GLUCOSE 165 MG/DL (70-104); POTASSIUM 4.4 MMOL/L (3.5-5.1); SODIUM 149 MMOL/L (135-145); TOTAL CARBON DIOXIDE 18.6 MMOL/L (24-32); TOTAL PROTEIN 2.8 G/DL (6.4-8.2); eGFR 35 ML/MIN
[2018-04-08] MEDS: piperacillin/tazo 3.375gm/50ml 50 ML IV SCH ×4 (01:53→19:27)
[2018-04-08] MEDS: acetaminophen 1,000mg/100ml IV 100 ML IV SCH ×3 (02:00→14:00)
[2018-04-08 02:10] LABS: BASOPHILS % (AUTO) 0.1 % (0-1); EOSINOPHILS % (AUTO) 0.1 % (0-6); HEMOGLOBIN 7.9 g/dl (14.0-17.9); LYMPHOCYTES # (AUTO) 0.8 X10'3 (1.1-4.8); LYMPHOCYTES % (AUTO) 4.5 % (21-51); MEAN CORPUSCULAR HEMOGLOBIN 30.7 PG (27.0-31.0); MEAN CORPUSCULAR HGB CONC 34.1 % (33.0-36.5); MEAN PLATELET VOLUME 9.3 FL (7.4-10.4); MONOCYTES # (AUTO) 0.6 X10'3 (0-0.9); MONOCYTES % (AUTO) 3.5 % (2-12); NEUTROPHILS # (AUTO) 15.5 X10'3 (1.8-7.7); NEUTROPHILS % (AUTO) 91.8 % (42-75); PLATELET COUNT 105 X10'3 (140-440); RED BLOOD COUNT 2.56 X10'6 (4.70-6.10); RED CELL DISTRIBUTION WIDTH 15.7 % (11.5-14.5); WHITE BLOOD COUNT 16.9 X10'3 (4.5-11.0)
[2018-04-08 02:19] LABS: INR 2.1 INR; PARTIAL THROMBOPLASTIN TIME 45 SECONDS (22-32); PROTHROMBIN TIME 20.7 SECONDS (9.0-12.0)
[2018-04-08] MEDS: ipratropium/albuterol 3ml nebule NEB SCH ×4 (03:18→20:29)
[2018-04-08] MEDS ORDERED: sodium bicarbonate (8.4%) inj. 150 MEQ in sodium chloride 0.45% 1,000 ML IV SCH (03:25)
[2018-04-08 03:31] LABS: ABG BASE EXCESS -6.8 mmol/L (-2.0-3.0); ABG HCO3 17.8 mmol/L (22.0-26.0); ABG OXYGEN SATURATION 97.7 % (95-98); ABG PCO2 (T) 32.1 mmHg (35.0-48.0); ABG PH (T) 7.363 (7.350-7.450); FCOHb 0.3 % (0.5-1.5); FMetHb 0.4 % (0.3-1.12); MINUTE VOLUME 7 L/min; PATIENT TEMPERATURE 37.2; PEEP 5 cm H2O; RESPIRATORY RATE 12 b/min; RESPIRATORY RATE (OBSERVED) 12 b/min; TIDAL VOLUME 600 mL; TOTAL HEMOGLOBIN 8.6 G/dl (14.0-18.0)
[2018-04-08 04:52] LABS: NUCLEATED RED BLOOD CELLS 6 /100WBC (0-0); PLATELET ESTIMATE DECREASED; TOTAL CELLS COUNTED 100
[2018-04-08 04:53] LABS: ANISOCYTOSIS 1+; POLYCHROMASIA 1+
[2018-04-08] MEDS: pantoprazole 40MG/NS 100ML BAG 100 ML IV SCH ×5 (05:16→21:12)
[2018-04-08 06:50] LABS: BASOPHILS % (AUTO) 0.1 % (0-1); EOSINOPHILS % (AUTO) 0.2 % (0-6); HEMATOCRIT 24.7 % (42.0-52.0); HEMOGLOBIN 8.6 g/dl (14.0-17.9); LYMPHOCYTES # (AUTO) 0.6 X10'3 (1.1-4.8); LYMPHOCYTES % (AUTO) 4.3 % (21-51); MEAN CORPUSCULAR HEMOGLOBIN 30.6 PG (27.0-31.0); MEAN CORPUSCULAR HGB CONC 34.8 % (33.0-36.5); MEAN PLATELET VOLUME 9.2 FL (7.4-10.4); MONOCYTES # (AUTO) 0.2 X10'3 (0-0.9); MONOCYTES % (AUTO) 1.7 % (2-12); NEUTROPHILS # (AUTO) 13.5 X10'3 (1.8-7.7); NEUTROPHILS % (AUTO) 93.7 % (42-75); PLATELET COUNT 105 X10'3 (140-440); RED BLOOD COUNT 2.81 X10'6 (4.70-6.10); RED CELL DISTRIBUTION WIDTH 15.3 % (11.5-14.5); WHITE BLOOD COUNT 14.4 X10'3 (4.5-11.0)
[2018-04-08] MEDS: sodium bicarbonate (8.4%) inj. 50 MEQ in sodium chloride 0.45% 1,000 ML IV SCH (07:15)
[2018-04-08] MEDS: carVEDilol 12.5mg tablet PO SCH ×2 (08:00→19:28)
[2018-04-08] MEDS: atorvastatin 20mg tablet PO SCH (08:00)
[2018-04-08] MEDS: FENTANYL-0.9 % NACL/PF 100 ML IV PRN ×2 (08:26→19:26)
[2018-04-08] MEDS ORDERED: WATER IV SCH (09:55)
[2018-04-08] MEDS ORDERED: DEXTROSE 5% IV SCH (09:55)
[2018-04-08] MEDS ORDERED: SODIUM BICARBONATE IV SCH (09:55)
[2018-04-08] MEDS: albumin (human) 25% 100 ML IV solution IV SCH ×2 (10:00→19:27)
[2018-04-08] MEDS ORDERED: phytonadione inj. 10 MG in normal saline 100ml IV soln 99 ML IV ONE (10:30)
[2018-04-08 10:58] LABS: BASOPHILS % (AUTO) 0.1 % (0-1); EOSINOPHILS % (AUTO) 0.1 % (0-6); HEMATOCRIT 23.6 % (42.0-52.0); HEMOGLOBIN 8.1 g/dl (14.0-17.9); LYMPHOCYTES # (AUTO) 0.7 X10'3 (1.1-4.8); LYMPHOCYTES % (AUTO) 5.1 % (21-51); MEAN CORPUSCULAR HEMOGLOBIN 30.5 PG (27.0-31.0); MEAN CORPUSCULAR HGB CONC 34.3 % (33.0-36.5); MEAN CORPUSCULAR VOLUME 88.8 FL (78-98); MEAN PLATELET VOLUME 8.8 FL (7.4-10.4); MONOCYTES # (AUTO) 0.5 X10'3 (0-0.9); MONOCYTES % (AUTO) 3.9 % (2-12); NEUTROPHILS # (AUTO) 11.7 X10'3 (1.8-7.7); NEUTROPHILS % (AUTO) 90.8 % (42-75); PLATELET COUNT 106 X10'3 (140-440); RED BLOOD COUNT 2.65 X10'6 (4.70-6.10); RED CELL DISTRIBUTION WIDTH 15.4 % (11.5-14.5); WHITE BLOOD COUNT 12.9 X10'3 (4.5-11.0)
[2018-04-08] MEDS ORDERED: albumin (human) 25% 100 ML IV solution IV ONE (11:00)
[2018-04-08 12:05] LABS: OXYGEN SATURATION (MIXED VEN) 70.3 % (60-80); PO2 MIXED VENOUS (TEMP COR) 37.1 mmHg (35-46)
[2018-04-08] MEDS: SODIUM BICARBONATE IV SCH ×2 (12:12→21:12)
[2018-04-08] MEDS: DEXTROSE 5% IV SCH ×2 (12:12→21:12)
[2018-04-08] MEDS: WATER IV SCH ×2 (12:12→21:12)
[2018-04-08] MEDS: levoTHYROXINE sod inj. 100mcg/5 ml vial IV SCH (12:26)
[2018-04-08] MEDS: vasopressin inj. 60 UNIT in normal saline 100ml IV soln 97 ML IV SCH (12:33)
[2018-04-08 12:38] LABS: PLATELET COUNT 106 X10'3 (140-440)
[2018-04-08 12:48] LABS: D-DIMER 3.08 MG/L FEU (0-0.50); INR 1.9 INR; PARTIAL THROMBOPLASTIN TIME 47 SECONDS (22-32); PROTHROMBIN TIME 19.7 SECONDS (9.0-12.0)
[2018-04-08 15:11] LABS: MEAN CORPUSCULAR HEMOGLOBIN 30.1 PG (27.0-31.0); MEAN CORPUSCULAR VOLUME 88.7 FL (78-98); MEAN PLATELET VOLUME 9.1 FL (7.4-10.4); PLATELET COUNT 104 X10'3 (140-440); RED BLOOD COUNT 2.23 X10'6 (4.70-6.10)
[2018-04-08 15:13] LABS: HEMOGLOBIN 6.7 g/dl (14.0-17.9)
[2018-04-08 15:14] LABS: HEMATOCRIT 19.7 % (42.0-52.0)
[2018-04-08 19:23] LABS: HEMATOCRIT 24.5 % (42.0-52.0); HEMOGLOBIN 8.5 g/dl (14.0-17.9); MEAN CORPUSCULAR HEMOGLOBIN 30.3 PG (27.0-31.0); MEAN CORPUSCULAR HGB CONC 34.6 % (33.0-36.5); MEAN CORPUSCULAR VOLUME 87.5 FL (78-98); MEAN PLATELET VOLUME 8.4 FL (7.4-10.4); PLATELET COUNT 103 X10'3 (140-440); RED CELL DISTRIBUTION WIDTH 15.3 % (11.5-14.5); WHITE BLOOD COUNT 11.1 X10'3 (4.5-11.0)
[2018-04-08] MEDS: midazolam 100mg in NS 100ml 100 ML IV PRN (19:26)
[2018-04-08 19:34] LABS: INR 1.5 INR; PARTIAL THROMBOPLASTIN TIME 40 SECONDS (22-32); PROTHROMBIN TIME 15.6 SECONDS (9.0-12.0)
[2018-04-08 19:38] LABS: ALANINE AMINOTRANSFERASE 22 U/L (12-78); ALBUMIN 1.9 G/DL (3.4-5.0); ALKALINE PHOSPHATASE 44 IU/L (46-116); ANION GAP 9 (8-16); ASPARTATE AMINO TRANSFERASE 27 U/L (10-37); BILIRUBIN,TOTAL 0.8 MG/DL (0.1-1.0); BLOOD UREA NITROGEN 27 MG/DL (7-18); BUN/CREATININE RATIO 17.4 (5.4-32.0); CALCIUM 6.9 MG/DL (8.5-10.1); CHLORIDE 115 MMOL/L (99-107); CREATININE 1.55 MG/DL (0.60-1.10); GLUCOSE 143 MG/DL (70-104); POTASSIUM 3.4 MMOL/L (3.5-5.1); SODIUM 149 MMOL/L (135-145); TOTAL CARBON DIOXIDE 25.2 MMOL/L (24-32); TOTAL PROTEIN 3.8 G/DL (6.4-8.2); eGFR 46 ML/MIN
[2018-04-08 23:10] LABS: HEMATOCRIT 22.1 % (42.0-52.0); HEMOGLOBIN 7.5 g/dl (14.0-17.9); MEAN CORPUSCULAR HGB CONC 34.1 % (33.0-36.5); MEAN CORPUSCULAR VOLUME 88.2 FL (78-98); MEAN PLATELET VOLUME 7.8 FL (7.4-10.4); PLATELET COUNT 102 X10'3 (140-440); RED BLOOD COUNT 2.51 X10'6 (4.70-6.10); RED CELL DISTRIBUTION WIDTH 15.4 % (11.5-14.5); WHITE BLOOD COUNT 9.5 X10'3 (4.5-11.0)
[2018-04-09] VITALS (43 sets, daily range): BP systolic 96–161; BP diastolic 39–87
[2018-04-09] MEDS: piperacillin/tazo 3.375gm/50ml 50 ML IV SCH ×4 (02:40→20:29)
[2018-04-09] MEDS: pantoprazole 40MG/NS 100ML BAG 100 ML IV SCH ×6 (02:40→23:56)
[2018-04-09] MEDS: ipratropium/albuterol 3ml nebule NEB SCH ×4 (02:56→20:25)
[2018-04-09 04:10] LABS: ABG HCO3 21.7 mmol/L (22.0-26.0); ABG OXYGEN SATURATION 96.3 % (95-98); ABG PCO2 (T) 37.9 mmHg (35.0-48.0); ABG PH (T) 7.377 (7.350-7.450); ABG PO2 (T) 91.7 mmHg (83-108); FCOHb 0.3 % (0.5-1.5); FMetHb 0.3 % (0.3-1.12); FO2Hb 95.7 % (94-100); MINUTE VOLUME 7 L/min; PATIENT TEMPERATURE 37.2; PEEP 5 cm H2O; RESPIRATORY RATE 12 b/min; RESPIRATORY RATE (OBSERVED) 13 b/min; TIDAL VOLUME 500 mL; TOTAL HEMOGLOBIN 9.9 G/dl (14.0-18.0)
[2018-04-09 04:15] LABS: BASOPHILS % (AUTO) 0.2 % (0-1); EOSINOPHILS # (AUTO) 0.3 X10'3 (0-0.9); HEMATOCRIT 27.4 % (42.0-52.0); HEMOGLOBIN 9.2 g/dl (14.0-17.9); LYMPHOCYTES # (AUTO) 0.4 X10'3 (1.1-4.8); LYMPHOCYTES % (AUTO) 4.2 % (21-51); MEAN CORPUSCULAR HEMOGLOBIN 30.2 PG (27.0-31.0); MEAN CORPUSCULAR HGB CONC 33.6 % (33.0-36.5); MEAN CORPUSCULAR VOLUME 89.8 FL (78-98); MEAN PLATELET VOLUME 8.1 FL (7.4-10.4); MONOCYTES # (AUTO) 0.3 X10'3 (0-0.9); MONOCYTES % (AUTO) 3.1 % (2-12); NEUTROPHILS # (AUTO) 9.1 X10'3 (1.8-7.7); NEUTROPHILS % (AUTO) 89.5 % (42-75); PLATELET COUNT 93 X10'3 (140-440); RED BLOOD COUNT 3.05 X10'6 (4.70-6.10); RED CELL DISTRIBUTION WIDTH 15.8 % (11.5-14.5); WHITE BLOOD COUNT 10.2 X10'3 (4.5-11.0)
[2018-04-09 04:26] LABS: INR 1.3 INR; PARTIAL THROMBOPLASTIN TIME 39 SECONDS (22-32); PROTHROMBIN TIME 13.3 SECONDS (9.0-12.0)
[2018-04-09 04:28] LABS: ALANINE AMINOTRANSFERASE 17 U/L (12-78); ALBUMIN 2.3 G/DL (3.4-5.0); ALBUMIN/GLOBULIN RATIO 1.2 (1.1-1.5); ALKALINE PHOSPHATASE 43 IU/L (46-116); ANION GAP 11 (8-16); ASPARTATE AMINO TRANSFERASE 21 U/L (10-37); BILIRUBIN,TOTAL 0.8 MG/DL (0.1-1.0); BLOOD UREA NITROGEN 25 MG/DL (7-18); BUN/CREATININE RATIO 17.7 (5.4-32.0); CALCIUM 6.8 MG/DL (8.5-10.1); CHLORIDE 113 MMOL/L (99-107); CREATININE 1.41 MG/DL (0.60-1.10); GLUCOSE 138 MG/DL (70-104); POTASSIUM 3.5 MMOL/L (3.5-5.1); SODIUM 149 MMOL/L (135-145); TOTAL CARBON DIOXIDE 24.7 MMOL/L (24-32); TOTAL PROTEIN 4.3 G/DL (6.4-8.2); eGFR 51 ML/MIN
[2018-04-09] MEDS: carVEDilol 12.5mg tablet PO SCH ×2 (06:46→20:00)
[2018-04-09] MEDS: atorvastatin 20mg tablet PO SCH (08:00)
[2018-04-09] MEDS: FENTANYL-0.9 % NACL/PF 100 ML IV PRN ×2 (08:00→23:56)
[2018-04-09] MEDS: levoTHYROXINE sod inj. 100mcg/5 ml vial IV SCH (08:01)
[2018-04-09] MEDS: albumin (human) 25% 100 ML IV solution IV SCH (08:09)
[2018-04-09 08:26] LABS: BASOPHILS % (AUTO) 0.1 % (0-1); EOSINOPHILS # (AUTO) 0.2 X10'3 (0-0.9); EOSINOPHILS % (AUTO) 2.3 % (0-6); HEMATOCRIT 28.1 % (42.0-52.0); HEMOGLOBIN 9.5 g/dl (14.0-17.9); LYMPHOCYTES # (AUTO) 0.4 X10'3 (1.1-4.8); LYMPHOCYTES % (AUTO) 4.3 % (21-51); MEAN CORPUSCULAR HEMOGLOBIN 30.9 PG (27.0-31.0); MEAN CORPUSCULAR HGB CONC 33.8 % (33.0-36.5); MEAN CORPUSCULAR VOLUME 91.5 FL (78-98); MEAN PLATELET VOLUME 8.6 FL (7.4-10.4); MONOCYTES # (AUTO) 0.2 X10'3 (0-0.9); MONOCYTES % (AUTO) 1.5 % (2-12); NEUTROPHILS # (AUTO) 9.4 X10'3 (1.8-7.7); NEUTROPHILS % (AUTO) 91.8 % (42-75); PLATELET COUNT 95 X10'3 (140-440); RED BLOOD COUNT 3.07 X10'6 (4.70-6.10); RED CELL DISTRIBUTION WIDTH 15.7 % (11.5-14.5); WHITE BLOOD COUNT 10.2 X10'3 (4.5-11.0)
[2018-04-09] MEDS ORDERED: tranexamic acid inj. 1,300 MG in normal saline 100ml IV soln 100 ML IV ONE (09:20)
[2018-04-09] MEDS ORDERED: DESMOPRESSIN IV ONE (09:20)
[2018-04-09] MEDS ORDERED: NORMAL SALINE IV ONE (09:20)
[2018-04-09] MEDS: SODIUM BICARBONATE IV SCH (11:27)
[2018-04-09] MEDS: DEXTROSE 5% IV SCH (11:27)
[2018-04-09] MEDS: WATER IV SCH (11:27)
[2018-04-09 11:55] LABS: MEAN CORPUSCULAR HEMOGLOBIN 31.3 PG (27.0-31.0); MEAN CORPUSCULAR HGB CONC 34.6 % (33.0-36.5); MEAN CORPUSCULAR VOLUME 90.4 FL (78-98); RED BLOOD COUNT 1.51 X10'6 (4.70-6.10); WHITE BLOOD COUNT 13.8 X10'3 (4.5-11.0)
[2018-04-09 12:00] LABS: HEMOGLOBIN 4.7 g/dl (14.0-17.9)
[2018-04-09 12:01] LABS: HEMATOCRIT 13.7 % (42.0-52.0)
[2018-04-09] MEDS ORDERED: vasopressin inj. 60 UNIT in normal saline 100ml IV soln 97 ML IV SCH (12:25)
[2018-04-09 12:40] LABS: MEAN PLATELET VOLUME 8.6 FL (7.4-10.4); PLATELET COUNT 90 X10'3 (140-440)
[2018-04-09] MEDS: octreotide 100mcg/1 ml ampule IV SCH ×2 (13:15→16:32)
[2018-04-09] MEDS: midazolam 100mg in NS 100ml 100 ML IV PRN (13:23)
[2018-04-09] MEDS ORDERED: heparin sodium, porcine/PF 100unit/ml 5ML syringe ONE (14:50)
[2018-04-09 18:15] LABS: MEAN CORPUSCULAR HEMOGLOBIN 29.8 PG (27.0-31.0); MEAN CORPUSCULAR HGB CONC 34.2 % (33.0-36.5); MEAN CORPUSCULAR VOLUME 87.3 FL (78-98); RED BLOOD COUNT 2.08 X10'6 (4.70-6.10); RED CELL DISTRIBUTION WIDTH 15.3 % (11.5-14.5); WHITE BLOOD COUNT 7.6 X10'3 (4.5-11.0)
[2018-04-09 18:18] LABS: HEMATOCRIT 18.1 % (42.0-52.0); HEMOGLOBIN 6.2 g/dl (14.0-17.9)
[2018-04-09 18:28] LABS: PLATELET COUNT 64 X10'3 (140-440)
[2018-04-09 18:29] LABS: MEAN PLATELET VOLUME 9.9 FL (7.4-10.4)
[2018-04-09] MEDS ORDERED: LIDOcaine 1%/PF 5ML 10 MG/ML VIAL ONE (20:52)
[2018-04-09] MEDS ORDERED: iohexol 300mg/ml 100ml inj. ONE (20:52)
[2018-04-09 21:08] LABS: HEMATOCRIT 24.1 % (42.0-52.0); HEMOGLOBIN 8.2 g/dl (14.0-17.9); MEAN CORPUSCULAR HGB CONC 34.2 % (33.0-36.5); MEAN CORPUSCULAR VOLUME 87.7 FL (78-98); PLATELET COUNT 51 X10'3 (140-440); RED BLOOD COUNT 2.75 X10'6 (4.70-6.10); RED CELL DISTRIBUTION WIDTH 14.5 % (11.5-14.5)
[2018-04-09 21:14] LABS: INR 1.4 INR; PARTIAL THROMBOPLASTIN TIME 38 SECONDS (22-32); PROTHROMBIN TIME 14.3 SECONDS (9.0-12.0)
[2018-04-09 21:19] LABS: ALANINE AMINOTRANSFERASE 28 U/L (12-78); ALBUMIN 1.6 G/DL (3.4-5.0); ALBUMIN/GLOBULIN RATIO 0.9 (1.1-1.5); ALKALINE PHOSPHATASE 272 IU/L (46-116); ANION GAP 7 (8-16); ASPARTATE AMINO TRANSFERASE 57 U/L (10-37); BILIRUBIN,TOTAL 3.3 MG/DL (0.1-1.0); BLOOD UREA NITROGEN 32 MG/DL (7-18); BUN/CREATININE RATIO 18.4 (5.4-32.0); CALCIUM 6.2 MG/DL (8.5-10.1); CHLORIDE 113 MMOL/L (99-107); CREATININE 1.74 MG/DL (0.60-1.10); GLUCOSE 180 MG/DL (70-104); MAGNESIUM 1.4 MG/DL (1.5-2.4); PHOSPHORUS 4.4 MG/DL (2.3-4.5); POTASSIUM 4.4 MMOL/L (3.5-5.1); SODIUM 146 MMOL/L (135-145); TOTAL CARBON DIOXIDE 25.9 MMOL/L (24-32); TOTAL PROTEIN 3.3 G/DL (6.4-8.2); eGFR 40 ML/MIN
[2018-04-09] MEDS ORDERED: heparin 1,000 UNITS/NS 500ml 500 ML ONE (21:27)
[2018-04-09 23:34] LABS: HEMOGLOBIN 7.8 g/dl (14.0-17.9); MEAN CORPUSCULAR HEMOGLOBIN 29.9 PG (27.0-31.0); MEAN CORPUSCULAR HGB CONC 33.9 % (33.0-36.5); MEAN CORPUSCULAR VOLUME 88.4 FL (78-98); MEAN PLATELET VOLUME 10.9 FL (7.4-10.4); PLATELET COUNT 62 X10'3 (140-440); RED CELL DISTRIBUTION WIDTH 14.6 % (11.5-14.5); WHITE BLOOD COUNT 10.8 X10'3 (4.5-11.0)
[2018-04-10] VITALS (29 sets, daily range): BP systolic 108–147; BP diastolic 56–79
[2018-04-10] MEDS: octreotide 100mcg/1 ml ampule IV SCH ×2 (00:02→09:11)
[2018-04-10] MEDS: piperacillin/tazo 3.375gm/50ml 50 ML IV SCH ×4 (02:26→19:47)
[2018-04-10] MEDS: ipratropium/albuterol 3ml nebule NEB SCH ×4 (03:02→21:38)
[2018-04-10 03:06] LABS: CLARITY,URINE CLEAR (Clear); COLOR,URINE YELLOW (Yellow); PROTEIN,URINE 30 mg/dl (Neg); UA COLLECTION TYPE FOLEY CATH
[2018-04-10 03:07] LABS: GLUCOSE, URINE NEGATIVE (Neg); KETONES,URINE TRACE mg/dl (Neg); LEUKOCYTE ESTERASE ,URINE NEGATIVE (Neg); NITRITES, URINE NEGATIVE (Neg); OCCULT BLOOD,URINE MODERATE (Neg); UROBILINOGEN,URINE 0.2 E.U/dL (0.2-1.0)
[2018-04-10 03:11] LABS: BACTERIA,URINE FEW /HPF (Neg); WBC,URINE 0-4 /HPF (0-4)
[2018-04-10 03:12] LABS: SQUAMOUS EPITHELIAL CELL,UR NONE SEEN /LPF (FEW)
[2018-04-10 03:16] LABS: BASOPHILS % (AUTO) 0.1 % (0-1); EOSINOPHILS # (AUTO) 0.1 X10'3 (0-0.9); EOSINOPHILS % (AUTO) 1.6 % (0-6); HEMATOCRIT 27.8 % (42.0-52.0); HEMOGLOBIN 9.6 g/dl (14.0-17.9); LYMPHOCYTES # (AUTO) 0.5 X10'3 (1.1-4.8); LYMPHOCYTES % (AUTO) 5.5 % (21-51); MEAN CORPUSCULAR HEMOGLOBIN 30.1 PG (27.0-31.0); MEAN CORPUSCULAR HGB CONC 34.6 % (33.0-36.5); MEAN CORPUSCULAR VOLUME 87.2 FL (78-98); MEAN PLATELET VOLUME 9.2 FL (7.4-10.4); MONOCYTES # (AUTO) 0.5 X10'3 (0-0.9); MONOCYTES % (AUTO) 5.1 % (2-12); NEUTROPHILS # (AUTO) 8.4 X10'3 (1.8-7.7); NEUTROPHILS % (AUTO) 87.7 % (42-75); PLATELET COUNT 59 X10'3 (140-440); RED BLOOD COUNT 3.19 X10'6 (4.70-6.10); RED CELL DISTRIBUTION WIDTH 14.6 % (11.5-14.5); WHITE BLOOD COUNT 9.6 X10'3 (4.5-11.0)
[2018-04-10 03:36] LABS: ALANINE AMINOTRANSFERASE 32 U/L (12-78); ALBUMIN 1.5 G/DL (3.4-5.0); ALKALINE PHOSPHATASE 246 IU/L (46-116); ANION GAP 9 (8-16); ASPARTATE AMINO TRANSFERASE 60 U/L (10-37); BILIRUBIN,TOTAL 4.7 MG/DL (0.1-1.0); BLOOD UREA NITROGEN 32 MG/DL (7-18); BUN/CREATININE RATIO 17.8 (5.4-32.0); CALCIUM 6.5 MG/DL (8.5-10.1); CHLORIDE 112 MMOL/L (99-107); GLUCOSE 175 MG/DL (70-104); MAGNESIUM 1.5 MG/DL (1.5-2.4); POTASSIUM 4.4 MMOL/L (3.5-5.1); SODIUM 145 MMOL/L (135-145); TOTAL CARBON DIOXIDE 23.7 MMOL/L (24-32); eGFR 38 ML/MIN
[2018-04-10 03:48] LABS: ALBUMIN/GLOBULIN RATIO 0.8 (1.1-1.5); PHOSPHORUS 4.4 MG/DL (2.3-4.5); TOTAL PROTEIN 3.4 G/DL (6.4-8.2)
[2018-04-10 03:55] LABS: INR 1.2 INR; PARTIAL THROMBOPLASTIN TIME 35 SECONDS (22-32); PROTHROMBIN TIME 12.7 SECONDS (9.0-12.0)
[2018-04-10 04:00] LABS: ABG BASE EXCESS -1.8 mmol/L (-2.0-3.0); ABG HCO3 22.2 mmol/L (22.0-26.0); ABG OXYGEN SATURATION 95.8 % (95-98); ABG PCO2 (T) 35.7 mmHg (35.0-48.0); ABG PH (T) 7.414 (7.350-7.450); ABG PO2 (T) 87.1 mmHg (83-108); FCOHb 0.3 % (0.5-1.5); FMetHb 0.3 % (0.3-1.12); FO2Hb 95.2 % (94-100); MINUTE VOLUME 9 L/min; PATIENT TEMPERATURE 37.6; PEEP 5 cm H2O; RESPIRATORY RATE 12 b/min; RESPIRATORY RATE (OBSERVED) 15 b/min; TIDAL VOLUME 500 mL; TOTAL HEMOGLOBIN 10.4 G/dl (14.0-18.0)
[2018-04-10] MEDS: pantoprazole 40MG/NS 100ML BAG 100 ML IV SCH ×4 (04:01→20:13)
[2018-04-10] MEDS: midazolam 100mg in NS 100ml 100 ML IV PRN ×2 (05:41→20:14)
[2018-04-10] MEDS: carVEDilol 12.5mg tablet PO SCH ×2 (06:29→19:44)
[2018-04-10] MEDS: atorvastatin 20mg tablet PO SCH (06:30)
[2018-04-10 06:59] LABS: HEMATOCRIT 27.8 % (42.0-52.0); HEMOGLOBIN 9.4 g/dl (14.0-17.9); MEAN CORPUSCULAR HEMOGLOBIN 29.9 PG (27.0-31.0); MEAN CORPUSCULAR VOLUME 87.9 FL (78-98); PLATELET COUNT 78 X10'3 (140-440); RED BLOOD COUNT 3.16 X10'6 (4.70-6.10); RED CELL DISTRIBUTION WIDTH 14.8 % (11.5-14.5)
[2018-04-10] MEDS: levoTHYROXINE sod inj. 100mcg/5 ml vial IV SCH (09:11)
[2018-04-10] MEDS: FENTANYL-0.9 % NACL/PF 100 ML IV PRN (12:49)
[2018-04-10] MEDS ORDERED: Dextrose 10%-water IV solution 1,000 ML IV PRN (13:01)
[2018-04-10] MEDS: [UNRECOGNIZED DRUG - OTHER] IV SCH ×4 (13:56)
[2018-04-10] MEDS: LIPIDS IV SCH ×4 (13:56)
[2018-04-10 14:44] LABS: PREALBUMIN 7.5 MG/DL (19-36); TRIGLYCERIDES 121 MG/DL (20-135)
[2018-04-10] MEDS: furosemide 40mg/4ml inj IV SCH (15:07)
[2018-04-10 15:26] LABS: HEMOGLOBIN 8.4 g/dl (14.0-17.9); MEAN CORPUSCULAR HEMOGLOBIN 29.7 PG (27.0-31.0); MEAN CORPUSCULAR HGB CONC 33.8 % (33.0-36.5); MEAN PLATELET VOLUME 8.9 FL (7.4-10.4); PLATELET COUNT 85 X10'3 (140-440); RED BLOOD COUNT 2.84 X10'6 (4.70-6.10); RED CELL DISTRIBUTION WIDTH 15.2 % (11.5-14.5); WHITE BLOOD COUNT 10.4 X10'3 (4.5-11.0)
[2018-04-10 22:14] LABS: HEMATOCRIT 24.1 % (42.0-52.0); HEMOGLOBIN 8.2 g/dl (14.0-17.9); MEAN CORPUSCULAR HEMOGLOBIN 30.2 PG (27.0-31.0); MEAN CORPUSCULAR HGB CONC 34.1 % (33.0-36.5); MEAN CORPUSCULAR VOLUME 88.5 FL (78-98); MEAN PLATELET VOLUME 9.8 FL (7.4-10.4); PLATELET COUNT 99 X10'3 (140-440); RED BLOOD COUNT 2.72 X10'6 (4.70-6.10); RED CELL DISTRIBUTION WIDTH 15.4 % (11.5-14.5); WHITE BLOOD COUNT 10.5 X10'3 (4.5-11.0)
[2018-04-11] VITALS (33 sets, daily range): BP systolic 111–164; BP diastolic 48–81
[2018-04-11] MEDS: furosemide 40mg/4ml inj IV SCH ×3 (00:05→16:18)
[2018-04-11] MEDS: piperacillin/tazo 3.375gm/50ml 50 ML IV SCH ×4 (01:39→19:09)
[2018-04-11] MEDS: pantoprazole 40MG/NS 100ML BAG 100 ML IV SCH ×6 (01:39→22:02)
[2018-04-11 02:15] LABS: BASOPHILS % (AUTO) 0 % (0-1); EOSINOPHILS # (AUTO) 0.2 X10'3 (0-0.9); EOSINOPHILS % (AUTO) 1.5 % (0-6); HEMATOCRIT 24.5 % (42.0-52.0); HEMOGLOBIN 8.3 g/dl (14.0-17.9); LYMPHOCYTES # (AUTO) 0.5 X10'3 (1.1-4.8); MEAN CORPUSCULAR VOLUME 88.2 FL (78-98); MEAN PLATELET VOLUME 9.2 FL (7.4-10.4); MONOCYTES # (AUTO) 0.3 X10'3 (0-0.9); MONOCYTES % (AUTO) 3.1 % (2-12); NEUTROPHILS # (AUTO) 9.6 X10'3 (1.8-7.7); NEUTROPHILS % (AUTO) 90.4 % (42-75); PLATELET COUNT 104 X10'3 (140-440); RED BLOOD COUNT 2.78 X10'6 (4.70-6.10); RED CELL DISTRIBUTION WIDTH 15.4 % (11.5-14.5); WHITE BLOOD COUNT 10.6 X10'3 (4.5-11.0)
[2018-04-11 02:28] LABS: ALANINE AMINOTRANSFERASE 34 U/L (12-78); ALBUMIN 1.2 G/DL (3.4-5.0); ALKALINE PHOSPHATASE 396 IU/L (46-116); ANION GAP 6 (8-16); ASPARTATE AMINO TRANSFERASE 35 U/L (10-37); BLOOD UREA NITROGEN 32 MG/DL (7-18); BUN/CREATININE RATIO 18.2 (5.4-32.0); CALCIUM 6.8 MG/DL (8.5-10.1); CHLORIDE 113 MMOL/L (99-107); CREATININE 1.76 MG/DL (0.60-1.10); GLUCOSE 175 MG/DL (70-104); MAGNESIUM 1.3 MG/DL (1.5-2.4); POTASSIUM 3.5 MMOL/L (3.5-5.1); SODIUM 146 MMOL/L (135-145); TOTAL CARBON DIOXIDE 27.5 MMOL/L (24-32); eGFR 39 ML/MIN
[2018-04-11 02:32] LABS: BILIRUBIN,TOTAL 4.7 MG/DL (0.1-1.0)
[2018-04-11 02:41] LABS: ALBUMIN/GLOBULIN RATIO 0.4 (1.1-1.5); PHOSPHORUS 3.5 MG/DL (2.3-4.5); TOTAL PROTEIN 3.9 G/DL (6.4-8.2)
[2018-04-11] MEDS: ipratropium/albuterol 3ml nebule NEB SCH ×4 (03:01→20:37)
[2018-04-11] MEDS: FENTANYL-0.9 % NACL/PF 100 ML IV PRN ×3 (03:28→21:49)
[2018-04-11 05:06] LABS: ABG BASE EXCESS 2.9 mmol/L (-2.0-3.0); ABG HCO3 25.2 mmol/L (22.0-26.0); ABG OXYGEN SATURATION 95.1 % (95-98); ABG PCO2 (T) 30.8 mmHg (35.0-48.0); ABG PH (T) 7.533 (7.350-7.450); ABG PO2 (T) 76.9 mmHg (83-108); FCOHb 0.3 % (0.5-1.5); FMetHb 0.2 % (0.3-1.12); FO2Hb 94.6 % (94-100); MINUTE VOLUME 8 L/min; PATIENT TEMPERATURE 37.8; PEEP 5 cm H2O; RESPIRATORY RATE 12 b/min; RESPIRATORY RATE (OBSERVED) 16 b/min; TIDAL VOLUME 500 mL; TOTAL HEMOGLOBIN 8.4 G/dl (14.0-18.0)
[2018-04-11] MEDS: carVEDilol 12.5mg tablet PO SCH ×2 (07:16→19:10)
[2018-04-11] MEDS: atorvastatin 20mg tablet PO SCH (07:16)
[2018-04-11] MEDS: levoTHYROXINE sod inj. 100mcg/5 ml vial IV SCH (07:25)
[2018-04-11] MEDS: LIPIDS IV SCH ×8 (07:26→19:09)
[2018-04-11] MEDS: [UNRECOGNIZED DRUG - OTHER] IV SCH ×8 (07:26→19:09)
[2018-04-11] MEDS: midazolam 100mg in NS 100ml 100 ML IV PRN ×2 (08:51→21:48)
[2018-04-11 10:24] LABS: HEMOGLOBIN 7.6 g/dl (14.0-17.9); MEAN CORPUSCULAR HEMOGLOBIN 30.4 PG (27.0-31.0); MEAN CORPUSCULAR HGB CONC 34.5 % (33.0-36.5); MEAN CORPUSCULAR VOLUME 88.1 FL (78-98); MEAN PLATELET VOLUME 9.8 FL (7.4-10.4); PLATELET COUNT 102 X10'3 (140-440); RED CELL DISTRIBUTION WIDTH 15.4 % (11.5-14.5); WHITE BLOOD COUNT 9.5 X10'3 (4.5-11.0)
[2018-04-11] MEDS ORDERED: calcium chloride 100 MG/1 ML inj IV PRN (11:45)
[2018-04-11] MEDS: calcium chloride 100 MG/1 ML inj IV PRN ×2 (12:14→12:37)
[2018-04-11] MEDS: insulin regular, human vial - multi-dose SQ SCH ×2 (14:17→21:42)
[2018-04-11] MEDS: albumin (human) 25% 100 ML IV solution IV SCH ×2 (14:56→19:09)
[2018-04-11] MEDS: POTASSIUM ACETATE IV SCH (15:14)
[2018-04-11] MEDS: MAGNESIUM SULF IV SCH (15:14)
[2018-04-11] MEDS: [UNRECOGNIZED DRUG - OTHER] IV SCH (15:14)
[2018-04-11 16:25] LABS: INR 1.2 INR; PARTIAL THROMBOPLASTIN TIME 33 SECONDS (22-32); PROTHROMBIN TIME 12.3 SECONDS (9.0-12.0)
[2018-04-11 16:39] LABS: MAGNESIUM 1.6 MG/DL (1.5-2.4); PHOSPHORUS 3.4 MG/DL (2.3-4.5); POTASSIUM 3.6 MMOL/L (3.5-5.1)
[2018-04-12] VITALS (29 sets, daily range): BP systolic 132–180; BP diastolic 60–85
[2018-04-12] MEDS: furosemide 40mg/4ml inj IV SCH ×3 (00:23→15:22)
[2018-04-12] MEDS: piperacillin/tazo 3.375gm/50ml 50 ML IV SCH ×4 (02:42→20:50)
[2018-04-12] MEDS: albumin (human) 25% 100 ML IV solution IV SCH ×4 (02:43→20:50)
[2018-04-12 02:47] LABS: HEMATOCRIT 24.7 % (42.0-52.0); HEMOGLOBIN 8.4 g/dl (14.0-17.9); MEAN CORPUSCULAR HEMOGLOBIN 29.5 PG (27.0-31.0); MEAN CORPUSCULAR HGB CONC 34.1 % (33.0-36.5); MEAN CORPUSCULAR VOLUME 86.4 FL (78-98); MEAN PLATELET VOLUME 10.3 FL (7.4-10.4); PLATELET COUNT 102 X10'3 (140-440); RED BLOOD COUNT 2.86 X10'6 (4.70-6.10); RED CELL DISTRIBUTION WIDTH 16.4 % (11.5-14.5)
[2018-04-12] MEDS: insulin regular, human vial - multi-dose SQ SCH ×4 (02:48→21:08)
[2018-04-12 02:59] LABS: INR 1.2 INR; PARTIAL THROMBOPLASTIN TIME 29 SECONDS (22-32); PROTHROMBIN TIME 12.5 SECONDS (9.0-12.0)
[2018-04-12] MEDS: pantoprazole 40MG/NS 100ML BAG 100 ML IV SCH ×4 (03:03→20:51)
[2018-04-12 03:08] LABS: MAGNESIUM 1.2 MG/DL (1.5-2.4); PHOSPHORUS 3.4 MG/DL (2.3-4.5); PREALBUMIN 7.9 MG/DL (19-36); TRIGLYCERIDES 146 MG/DL (20-135)
[2018-04-12] MEDS: ipratropium/albuterol 3ml nebule NEB SCH ×4 (03:27→20:19)
[2018-04-12 03:41] LABS: ABG BASE EXCESS 3.9 mmol/L (-2.0-3.0); ABG HCO3 28.1 mmol/L (22.0-26.0); ABG OXYGEN SATURATION 95.6 % (95-98); ABG PCO2 (T) 41.6 mmHg (35.0-48.0); ABG PH (T) 7.449 (7.350-7.450); ABG PO2 (T) 90.6 mmHg (83-108); FCOHb 0.3 % (0.5-1.5); FMetHb 0.2 % (0.3-1.12); FO2Hb 95.1 % (94-100); PATIENT TEMPERATURE 37.4; PEEP 5 cm H2O; RESPIRATORY RATE 10 b/min; RESPIRATORY RATE (OBSERVED) 13 b/min; TIDAL VOLUME 500 mL; TOTAL HEMOGLOBIN 9.5 G/dl (14.0-18.0)
[2018-04-12 04:02] LABS: ALANINE AMINOTRANSFERASE 27 U/L (12-78); ALBUMIN 1.9 G/DL (3.4-5.0); ALBUMIN/GLOBULIN RATIO 0.6 (1.1-1.5); ALKALINE PHOSPHATASE 231 IU/L (46-116); ANION GAP 7 (8-16); ASPARTATE AMINO TRANSFERASE 16 U/L (10-37); BILIRUBIN,TOTAL 1.6 MG/DL (0.1-1.0); BLOOD UREA NITROGEN 31 MG/DL (7-18); BUN/CREATININE RATIO 19.7 (5.4-32.0); CALCIUM 8.1 MG/DL (8.5-10.1); CHLORIDE 107 MMOL/L (99-107); CREATININE 1.57 MG/DL (0.60-1.10); GLUCOSE 371 MG/DL (70-104); POTASSIUM 3.1 MMOL/L (3.5-5.1); SODIUM 143 MMOL/L (135-145); TOTAL CARBON DIOXIDE 29.4 MMOL/L (24-32); TOTAL PROTEIN 4.9 G/DL (6.4-8.2); eGFR 45 ML/MIN
[2018-04-12] MEDS ORDERED: magnesium 4gm in 100ml NS 100 ML IV PRN (04:20)
[2018-04-12] MEDS: potassium Cl 40MEQ/250ML bag 250 ML IV PRN ×2 (04:43→21:47)
[2018-04-12] MEDS: FENTANYL-0.9 % NACL/PF 100 ML IV PRN ×2 (07:18→15:02)
[2018-04-12 08:46] LABS: HEMATOCRIT 22.4 % (42.0-52.0); HEMOGLOBIN 7.6 g/dl (14.0-17.9); MEAN CORPUSCULAR HEMOGLOBIN 29.3 PG (27.0-31.0); MEAN PLATELET VOLUME 9.8 FL (7.4-10.4); PLATELET COUNT 103 X10'3 (140-440); WHITE BLOOD COUNT 8.1 X10'3 (4.5-11.0)
[2018-04-12] MEDS: levoTHYROXINE sod inj. 100mcg/5 ml vial IV SCH (09:03)
[2018-04-12] MEDS: POTASSIUM ACETATE IV SCH (09:23)
[2018-04-12] MEDS: [UNRECOGNIZED DRUG - OTHER] IV SCH (09:23)
[2018-04-12] MEDS: MAGNESIUM SULF IV SCH ×10 (09:23→21:52)
[2018-04-12] MEDS: carVEDilol 12.5mg tablet PO SCH ×2 (09:28→19:46)
[2018-04-12] MEDS: K and/or MAG REPLACEMENT MC SCH (09:28)
[2018-04-12] MEDS: atorvastatin 20mg tablet PO SCH (09:28)
[2018-04-12] MEDS ORDERED: desmopressin inj. 20 MCG in normal saline 100ml IV soln 95 ML IV ONE (11:45)
[2018-04-12] MEDS ORDERED: tranexamic acid inj. 1,000 MG in normal saline 100ml IV soln 90 ML IV ONE (12:45)
[2018-04-12 13:17] LABS: D-DIMER 8.65 MG/L FEU (0-0.50)
[2018-04-12 14:43] LABS: HEMATOCRIT 23.1 % (42.0-52.0); HEMOGLOBIN 7.7 g/dl (14.0-17.9); MEAN CORPUSCULAR HEMOGLOBIN 29.4 PG (27.0-31.0); MEAN CORPUSCULAR HGB CONC 33.5 % (33.0-36.5); MEAN CORPUSCULAR VOLUME 87.7 FL (78-98); PLATELET COUNT 103 X10'3 (140-440); RED BLOOD COUNT 2.63 X10'6 (4.70-6.10); RED CELL DISTRIBUTION WIDTH 17.4 % (11.5-14.5); WHITE BLOOD COUNT 8.2 X10'3 (4.5-11.0)
[2018-04-12] MEDS: octreotide inj. 1,250 MCG in normal saline 250ml IV soln 243.75 ML IV SCH (16:24)
[2018-04-12] MEDS: midazolam 100mg in NS 100ml 100 ML IV PRN (16:52)
[2018-04-12] MEDS: labetalol 20mg/4ml (5mg/ml) syringe IV PRN (17:33)
[2018-04-12] MEDS: acetaminophen 650mg rectal suppository RC PRN (17:34)
[2018-04-12 19:27] LABS: HEMATOCRIT 26.4 % (42.0-52.0); HEMOGLOBIN 8.8 g/dl (14.0-17.9); MEAN CORPUSCULAR HEMOGLOBIN 29.4 PG (27.0-31.0); MEAN CORPUSCULAR HGB CONC 33.2 % (33.0-36.5); MEAN CORPUSCULAR VOLUME 88.4 FL (78-98); MEAN PLATELET VOLUME 9.9 FL (7.4-10.4); PLATELET COUNT 118 X10'3 (140-440); RED BLOOD COUNT 2.99 X10'6 (4.70-6.10); RED CELL DISTRIBUTION WIDTH 16.3 % (11.5-14.5); WHITE BLOOD COUNT 8.1 X10'3 (4.5-11.0)
[2018-04-12 20:29] LABS: MAGNESIUM 1.3 MG/DL (1.5-2.4)
[2018-04-12 20:30] LABS: POTASSIUM 2.8 MMOL/L (3.5-5.1)
[2018-04-12] MEDS: magnesium 1gm/100ml D5W IVPB 100 ML IV PRN (21:30)
[2018-04-12] MEDS: nystatin 15 GM powder TP SCH (21:49)
[2018-04-12] MEDS: CALCIUM GLUCONATE IV SCH ×9 (21:52)
[2018-04-12] MEDS: [UNRECOGNIZED DRUG - OTHER] IV SCH ×9 (21:52)
[2018-04-12 23:25] LABS: HEMOGLOBIN 8.5 g/dl (14.0-17.9); MEAN CORPUSCULAR HEMOGLOBIN 29.5 PG (27.0-31.0); MEAN CORPUSCULAR HGB CONC 33.8 % (33.0-36.5); MEAN CORPUSCULAR VOLUME 87.2 FL (78-98); MEAN PLATELET VOLUME 9.9 FL (7.4-10.4); PLATELET COUNT 128 X10'3 (140-440); RED BLOOD COUNT 2.87 X10'6 (4.70-6.10); RED CELL DISTRIBUTION WIDTH 16.2 % (11.5-14.5); WHITE BLOOD COUNT 7.8 X10'3 (4.5-11.0)
[2018-04-13] VITALS (24 sets, daily range): BP systolic 131–174; BP diastolic 62–95
[2018-04-13] MEDS: pantoprazole 40MG/NS 100ML BAG 100 ML IV SCH ×5 (00:23→21:19)
[2018-04-13] MEDS: potassium Cl 40MEQ/250ML bag 250 ML IV PRN ×2 (00:23→23:31)
[2018-04-13] MEDS: furosemide 40mg/4ml inj IV SCH ×3 (00:24→15:15)
[2018-04-13] MEDS: labetalol 20mg/4ml (5mg/ml) syringe IV PRN ×2 (00:41→16:16)
[2018-04-13] MEDS: FENTANYL-0.9 % NACL/PF 100 ML IV PRN ×2 (01:04→07:43)
[2018-04-13] MEDS: albumin (human) 25% 100 ML IV solution IV SCH ×4 (01:06→20:10)
[2018-04-13] MEDS: piperacillin/tazo 3.375gm/50ml 50 ML IV SCH ×4 (02:00→20:11)
[2018-04-13] MEDS: midazolam 100mg in NS 100ml 100 ML IV PRN ×2 (02:01→17:13)
[2018-04-13] MEDS: ipratropium/albuterol 3ml nebule NEB SCH ×3 (02:31→20:32)
[2018-04-13] MEDS: insulin regular, human vial - multi-dose SQ SCH ×4 (02:40→20:33)
[2018-04-13 02:54] LABS: HEMATOCRIT 24.5 % (42.0-52.0); HEMOGLOBIN 8.1 g/dl (14.0-17.9); MEAN CORPUSCULAR HEMOGLOBIN 29.4 PG (27.0-31.0); MEAN CORPUSCULAR HGB CONC 33.3 % (33.0-36.5); MEAN CORPUSCULAR VOLUME 88.3 FL (78-98); PLATELET COUNT 129 X10'3 (140-440); RED BLOOD COUNT 2.77 X10'6 (4.70-6.10); RED CELL DISTRIBUTION WIDTH 16.6 % (11.5-14.5); WHITE BLOOD COUNT 7.5 X10'3 (4.5-11.0)
[2018-04-13 03:10] LABS: INR 1.3 INR; PARTIAL THROMBOPLASTIN TIME 29 SECONDS (22-32); PROTHROMBIN TIME 12.9 SECONDS (9.0-12.0)
[2018-04-13 03:25] LABS: ALANINE AMINOTRANSFERASE 21 U/L (12-78); ALBUMIN 2.9 G/DL (3.4-5.0); ALBUMIN/GLOBULIN RATIO 0.9 (1.1-1.5); ALKALINE PHOSPHATASE 135 IU/L (46-116); ANION GAP 5 (8-16); ASPARTATE AMINO TRANSFERASE 13 U/L (10-37); BILIRUBIN,TOTAL 1.2 MG/DL (0.1-1.0); BLOOD UREA NITROGEN 36 MG/DL (7-18); BUN/CREATININE RATIO 28.8 (5.4-32.0); CALCIUM 7.5 MG/DL (8.5-10.1); CHLORIDE 104 MMOL/L (99-107); CREATININE 1.25 MG/DL (0.60-1.10); GLUCOSE 240 MG/DL (70-104); MAGNESIUM 1.6 MG/DL (1.5-2.4); PHOSPHORUS 3.1 MG/DL (2.3-4.5); POTASSIUM 3.6 MMOL/L (3.5-5.1); SODIUM 141 MMOL/L (135-145); TOTAL CARBON DIOXIDE 31.9 MMOL/L (24-32); eGFR 59 ML/MIN
[2018-04-13 04:26] LABS: ABG BASE EXCESS 3.5 mmol/L (-2.0-3.0); ABG HCO3 28.3 mmol/L (22.0-26.0); ABG OXYGEN SATURATION 94.5 % (95-98); ABG PCO2 (T) 45.1 mmHg (35.0-48.0); ABG PH (T) 7.418 (7.350-7.450); ABG PO2 (T) 77.6 mmHg (83-108); FCOHb 0.9 % (0.5-1.5); FMetHb 0.1 % (0.3-1.12); FO2Hb 93.6 % (94-100); MINUTE VOLUME 8 L/min; PATIENT TEMPERATURE 37.4; PEEP 5 cm H2O; RESPIRATORY RATE 10 b/min; RESPIRATORY RATE (OBSERVED) 14 b/min; TIDAL VOLUME 500 mL; TOTAL HEMOGLOBIN 8.9 G/dl (14.0-18.0)
[2018-04-13 06:21] LABS: MAGNESIUM 1.5 MG/DL (1.5-2.4); PHOSPHORUS 2.8 MG/DL (2.3-4.5); POTASSIUM 3.3 MMOL/L (3.5-5.1)
[2018-04-13 07:06] LABS: HEMATOCRIT 26.2 % (42.0-52.0); HEMOGLOBIN 8.7 g/dl (14.0-17.9); MEAN CORPUSCULAR HEMOGLOBIN 29.7 PG (27.0-31.0); MEAN CORPUSCULAR HGB CONC 33.3 % (33.0-36.5); PLATELET COUNT 142 X10'3 (140-440); RED BLOOD COUNT 2.94 X10'6 (4.70-6.10); RED CELL DISTRIBUTION WIDTH 16.6 % (11.5-14.5); WHITE BLOOD COUNT 7.1 X10'3 (4.5-11.0)
[2018-04-13] MEDS: levoTHYROXINE sod inj. 100mcg/5 ml vial IV SCH (07:41)
[2018-04-13] MEDS: nystatin 15 GM powder TP SCH ×3 (07:43→21:20)
[2018-04-13] MEDS: carVEDilol 12.5mg tablet PO SCH ×2 (07:44→20:11)
[2018-04-13] MEDS: atorvastatin 20mg tablet PO SCH (07:44)
[2018-04-13] MEDS: K and/or MAG REPLACEMENT MC SCH (07:44)
[2018-04-13 10:31] LABS: CLARITY,URINE CLEAR (Clear); COLOR,URINE YELLOW (Yellow); GLUCOSE, URINE NEGATIVE (Neg); KETONES,URINE NEGATIVE (Neg); LEUKOCYTE ESTERASE ,URINE NEGATIVE (Neg); NITRITES, URINE NEGATIVE (Neg); OCCULT BLOOD,URINE SMALL (Neg); PH,URINE 5.5 (4.8-8.0); PROTEIN,URINE TRACE mg/dl (Neg); UROBILINOGEN,URINE 0.2 E.U/dL (0.2-1.0)
[2018-04-13 10:36] LABS: UA COLLECTION TYPE NON-SPECIFIED
[2018-04-13 10:37] LABS: BACTERIA,URINE NONE SEEN /HPF (Neg); MUCUS STRANDS FEW /LPF (Neg); RBC,URINE 0-2 /HPF (0-2); SQUAMOUS EPITHELIAL CELL,UR NONE SEEN /LPF (FEW); WBC,URINE NONE SEEN /HPF (0-4)
[2018-04-13] MEDS ORDERED: midazolam 2 mg/2 ml injection IV ONE (11:10)
[2018-04-13] MEDS: magnesium 1gm/100ml D5W IVPB 100 ML IV PRN ×2 (11:34→23:31)
[2018-04-13] MEDS: morphine/NS 100mg/100ml bag 100 ML IV SCH (11:44)
[2018-04-13 13:16] LABS: HEMATOCRIT 24.4 % (42.0-52.0); HEMOGLOBIN 8.2 g/dl (14.0-17.9); MEAN CORPUSCULAR HEMOGLOBIN 29.4 PG (27.0-31.0); MEAN CORPUSCULAR HGB CONC 33.5 % (33.0-36.5); MEAN CORPUSCULAR VOLUME 87.8 FL (78-98); MEAN PLATELET VOLUME 9.9 FL (7.4-10.4); PLATELET COUNT 162 X10'3 (140-440); RED BLOOD COUNT 2.78 X10'6 (4.70-6.10); RED CELL DISTRIBUTION WIDTH 16.6 % (11.5-14.5); WHITE BLOOD COUNT 6.5 X10'3 (4.5-11.0)
[2018-04-13] MEDS: octreotide inj. 1,250 MCG in normal saline 250ml IV soln 243.75 ML IV SCH (15:16)
[2018-04-13 15:21] LABS: HEMATOCRIT 24.8 % (42.0-52.0); HEMOGLOBIN 8.5 g/dl (14.0-17.9); MEAN CORPUSCULAR HEMOGLOBIN 29.7 PG (27.0-31.0); MEAN CORPUSCULAR HGB CONC 34.1 % (33.0-36.5); PLATELET COUNT 168 X10'3 (140-440); RED BLOOD COUNT 2.85 X10'6 (4.70-6.10); WHITE BLOOD COUNT 6.9 X10'3 (4.5-11.0)
[2018-04-13] MEDS ORDERED: acetaminophen 325mg/10.15ml oral unit dose solution PO ONE (15:30)
[2018-04-13 19:44] LABS: HEMATOCRIT 24.6 % (42.0-52.0); HEMOGLOBIN 8.2 g/dl (14.0-17.9); MEAN CORPUSCULAR HEMOGLOBIN 29.5 PG (27.0-31.0); MEAN CORPUSCULAR HGB CONC 33.4 % (33.0-36.5); MEAN CORPUSCULAR VOLUME 88.3 FL (78-98); MEAN PLATELET VOLUME 9.5 FL (7.4-10.4); PLATELET COUNT 171 X10'3 (140-440); RED BLOOD COUNT 2.79 X10'6 (4.70-6.10); RED CELL DISTRIBUTION WIDTH 16.8 % (11.5-14.5); WHITE BLOOD COUNT 5.9 X10'3 (4.5-11.0)
[2018-04-13] MEDS: linezolid 600mg/300ml PREMIX 300 ML IV SCH (20:11)
[2018-04-13] MEDS: CALCIUM GLUCONATE IV SCH ×9 (21:20)
[2018-04-13] MEDS: [UNRECOGNIZED DRUG - OTHER] IV SCH ×9 (21:20)
[2018-04-13] MEDS: MAGNESIUM SULF IV SCH ×9 (21:20)
[2018-04-13 22:35] LABS: MAGNESIUM 1.4 MG/DL (1.5-2.4); PHOSPHORUS 2.3 MG/DL (2.3-4.5); POTASSIUM 3.3 MMOL/L (3.5-5.1)
[2018-04-13] MEDS ORDERED: potassium Cl 40MEQ/250ML bag 250 ML IV ONE (23:22)
[2018-04-14] VITALS (27 sets, daily range): BP systolic 131–182; BP diastolic 7–88
[2018-04-14] MEDS: furosemide 40mg/4ml inj IV SCH ×3 (00:11→16:21)
[2018-04-14] MEDS: pantoprazole 40MG/NS 100ML BAG 100 ML IV SCH ×5 (01:07→21:16)
[2018-04-14] MEDS: piperacillin/tazo 3.375gm/50ml 50 ML IV SCH ×4 (02:16→21:10)
[2018-04-14] MEDS: albumin (human) 25% 100 ML IV solution IV SCH ×4 (02:16→20:10)
[2018-04-14] MEDS: insulin regular, human vial - multi-dose SQ SCH ×4 (02:24→19:38)
[2018-04-14] MEDS: ipratropium/albuterol 3ml nebule NEB SCH ×4 (02:28→20:44)
[2018-04-14 02:45] LABS: HEMATOCRIT 25.2 % (42.0-52.0); HEMOGLOBIN 8.4 g/dl (14.0-17.9); MEAN CORPUSCULAR HEMOGLOBIN 29.7 PG (27.0-31.0); MEAN CORPUSCULAR HGB CONC 33.2 % (33.0-36.5); MEAN CORPUSCULAR VOLUME 89.5 FL (78-98); MEAN PLATELET VOLUME 9.8 FL (7.4-10.4); PLATELET COUNT 177 X10'3 (140-440); RED BLOOD COUNT 2.82 X10'6 (4.70-6.10); RED CELL DISTRIBUTION WIDTH 17.3 % (11.5-14.5); WHITE BLOOD COUNT 5.8 X10'3 (4.5-11.0)
[2018-04-14] MEDS ORDERED: acetaminophen 325mg/10.15ml oral unit dose solution PO PRN (03:30)
[2018-04-14 03:36] LABS: ABG BASE EXCESS 8.7 mmol/L (-2.0-3.0); ABG HCO3 33.5 mmol/L (22.0-26.0); ABG OXYGEN SATURATION 93.5 % (95-98); ABG PH (T) 7.448 (7.350-7.450); ABG PO2 (T) 71.5 mmHg (83-108); FCOHb 0.6 % (0.5-1.5); FMetHb 0.2 % (0.3-1.12); FO2Hb 92.8 % (94-100); MINUTE VOLUME 10 L/min; PEEP 5 cm H2O; RESPIRATORY RATE 10 b/min; RESPIRATORY RATE (OBSERVED) 19 b/min; TIDAL VOLUME 500 mL; TOTAL HEMOGLOBIN 9.5 G/dl (14.0-18.0)
[2018-04-14] MEDS: labetalol 20mg/4ml (5mg/ml) syringe IV PRN (03:41)
[2018-04-14] MEDS: midazolam 100mg in NS 100ml 100 ML IV PRN (03:42)
[2018-04-14 04:53] LABS: ALANINE AMINOTRANSFERASE 24 U/L (12-78); ALBUMIN 3.2 G/DL (3.4-5.0); ALKALINE PHOSPHATASE 112 IU/L (46-116); ANION GAP 5 (8-16); ASPARTATE AMINO TRANSFERASE 17 U/L (10-37); BILIRUBIN,TOTAL 1.3 MG/DL (0.1-1.0); BLOOD UREA NITROGEN 40 MG/DL (7-18); BUN/CREATININE RATIO 30.3 (5.4-32.0); CALCIUM 8.1 MG/DL (8.5-10.1); CHLORIDE 99 MMOL/L (99-107); CREATININE 1.32 MG/DL (0.60-1.10); GLUCOSE 140 MG/DL (70-104); MAGNESIUM 1.4 MG/DL (1.5-2.4); PHOSPHORUS 1.9 MG/DL (2.3-4.5); POTASSIUM 3.4 MMOL/L (3.5-5.1); SODIUM 138 MMOL/L (135-145); TOTAL CARBON DIOXIDE 34.1 MMOL/L (24-32); TOTAL PROTEIN 6.4 G/DL (6.4-8.2); eGFR 55 ML/MIN
[2018-04-14] MEDS ORDERED: potassium Cl 40MEQ/250ML bag 250 ML IV ONE (05:08)
[2018-04-14] MEDS: magnesium 1gm/100ml D5W IVPB 100 ML IV PRN ×2 (05:17→21:03)
[2018-04-14 05:37] LABS: INR 1.3 INR; PARTIAL THROMBOPLASTIN TIME 29 SECONDS (22-32)
[2018-04-14] MEDS: K and/or MAG REPLACEMENT MC SCH (08:00)
[2018-04-14 08:29] LABS: HEMATOCRIT 24.5 % (42.0-52.0); HEMOGLOBIN 8.2 g/dl (14.0-17.9); MEAN CORPUSCULAR HEMOGLOBIN 29.7 PG (27.0-31.0); MEAN CORPUSCULAR HGB CONC 33.7 % (33.0-36.5); MEAN CORPUSCULAR VOLUME 88.2 FL (78-98); MEAN PLATELET VOLUME 9.4 FL (7.4-10.4); PLATELET COUNT 184 X10'3 (140-440); RED BLOOD COUNT 2.77 X10'6 (4.70-6.10); RED CELL DISTRIBUTION WIDTH 17.3 % (11.5-14.5)
[2018-04-14 08:42] LABS: MAGNESIUM 1.5 MG/DL (1.5-2.4); PHOSPHORUS 1.9 MG/DL (2.3-4.5); POTASSIUM 3.7 MMOL/L (3.5-5.1)
[2018-04-14] MEDS: linezolid 600mg/300ml PREMIX 300 ML IV SCH ×2 (08:52→22:18)
[2018-04-14] MEDS: nystatin 15 GM powder TP SCH ×3 (08:52→21:00)
[2018-04-14] MEDS: atorvastatin 20mg tablet PO SCH (08:52)
[2018-04-14] MEDS: carVEDilol 12.5mg tablet PO SCH ×2 (08:52→21:16)
[2018-04-14] MEDS: levoTHYROXINE sod inj. 100mcg/5 ml vial IV SCH (09:40)
[2018-04-14] MEDS: octreotide inj. 1,250 MCG in normal saline 250ml IV soln 243.75 ML IV SCH (13:23)
[2018-04-14] MEDS ORDERED: hydrALAZINE 20mg/ml inj. IV PRN (14:10)
[2018-04-14 14:28] LABS: HEMOGLOBIN 7.9 g/dl (14.0-17.9); MEAN CORPUSCULAR HEMOGLOBIN 29.7 PG (27.0-31.0); MEAN CORPUSCULAR HGB CONC 33.1 % (33.0-36.5); MEAN CORPUSCULAR VOLUME 89.6 FL (78-98); PLATELET COUNT 185 X10'3 (140-440); RED BLOOD COUNT 2.68 X10'6 (4.70-6.10); RED CELL DISTRIBUTION WIDTH 17.9 % (11.5-14.5); WHITE BLOOD COUNT 5.3 X10'3 (4.5-11.0)
[2018-04-14 14:41] LABS: MAGNESIUM 1.4 MG/DL (1.5-2.4); PHOSPHORUS 1.9 MG/DL (2.3-4.5); POTASSIUM 3.5 MMOL/L (3.5-5.1)
[2018-04-14] MEDS: morphine/NS 100mg/100ml bag 100 ML IV SCH (19:10)
[2018-04-14 19:21] LABS: BASOPHILS # (AUTO) 0.1 X10'3 (0-0.2); EOSINOPHILS # (AUTO) 0.2 X10'3 (0-0.9); EOSINOPHILS % (AUTO) 3.3 % (0-6); HEMATOCRIT 27.8 % (42.0-52.0); HEMOGLOBIN 9.4 g/dl (14.0-17.9); LYMPHOCYTES # (AUTO) 0.6 X10'3 (1.1-4.8); LYMPHOCYTES % (AUTO) 10.4 % (21-51); MEAN CORPUSCULAR HEMOGLOBIN 29.9 PG (27.0-31.0); MEAN CORPUSCULAR HGB CONC 33.6 % (33.0-36.5); MEAN CORPUSCULAR VOLUME 88.9 FL (78-98); MEAN PLATELET VOLUME 9.1 FL (7.4-10.4); MONOCYTES # (AUTO) 0.3 X10'3 (0-0.9); MONOCYTES % (AUTO) 6.2 % (2-12); NEUTROPHILS # (AUTO) 4.4 X10'3 (1.8-7.7); NEUTROPHILS % (AUTO) 79.1 % (42-75); PLATELET COUNT 207 X10'3 (140-440); RED BLOOD COUNT 3.13 X10'6 (4.70-6.10); WHITE BLOOD COUNT 5.6 X10'3 (4.5-11.0)
[2018-04-14 19:30] LABS: INR 1.3 INR; PARTIAL THROMBOPLASTIN TIME 29 SECONDS (22-32); PROTHROMBIN TIME 13.4 SECONDS (9.0-12.0)
[2018-04-14 19:33] LABS: ALANINE AMINOTRANSFERASE 18 U/L (12-78); ALBUMIN/GLOBULIN RATIO 0.9 (1.1-1.5); ALKALINE PHOSPHATASE 99 IU/L (46-116); ANION GAP 7 (8-16); ASPARTATE AMINO TRANSFERASE 15 U/L (10-37); BILIRUBIN,TOTAL 1.1 MG/DL (0.1-1.0); BLOOD UREA NITROGEN 44 MG/DL (7-18); BUN/CREATININE RATIO 36.7 (5.4-32.0); CALCIUM 8.1 MG/DL (8.5-10.1); CHLORIDE 97 MMOL/L (99-107); GLUCOSE 124 MG/DL (70-104); MAGNESIUM 1.4 MG/DL (1.5-2.4); PHOSPHORUS 1.6 MG/DL (2.3-4.5); POTASSIUM 3.3 MMOL/L (3.5-5.1); SODIUM 138 MMOL/L (135-145); TOTAL CARBON DIOXIDE 34.5 MMOL/L (24-32); TOTAL PROTEIN 6.2 G/DL (6.4-8.2); eGFR 61 ML/MIN
[2018-04-14] MEDS ORDERED: sodium phosphate inj. 30 MMOL in dextrose 5%-water 250 ML IV PRN (20:01)
[2018-04-14] MEDS ORDERED: sodium phosphate inj. 15 MMOL in dextrose 5%-water 150 ML IV PRN (20:01)
[2018-04-14 20:10] LABS: ANISOCYTOSIS 1+; PLATELET ESTIMATE NORMAL
[2018-04-14] MEDS: potassium Cl 40MEQ/250ML bag 250 ML IV PRN (20:34)
[2018-04-14] MEDS: [UNRECOGNIZED DRUG - OTHER] IV SCH ×9 (20:39)
[2018-04-14] MEDS: CALCIUM GLUCONATE IV SCH ×9 (20:39)
[2018-04-14] MEDS: MAGNESIUM SULF IV SCH ×9 (20:39)
[2018-04-15] VITALS (24 sets, daily range): BP systolic 120–196; BP diastolic 50–94
[2018-04-15] MEDS: furosemide 40mg/4ml inj IV SCH ×3 (00:09→16:30)
[2018-04-15] MEDS: midazolam 100mg in NS 100ml 100 ML IV PRN ×2 (00:09→21:03)
[2018-04-15] MEDS: insulin regular, human vial - multi-dose SQ SCH ×3 (01:48→20:57)
[2018-04-15] MEDS: pantoprazole 40MG/NS 100ML BAG 100 ML IV SCH ×5 (01:57→21:02)
[2018-04-15] MEDS: albumin (human) 25% 100 ML IV solution IV SCH ×4 (02:12→19:34)
[2018-04-15] MEDS: piperacillin/tazo 3.375gm/50ml 50 ML IV SCH ×4 (02:17→19:27)
[2018-04-15] MEDS: ipratropium/albuterol 3ml nebule NEB SCH ×4 (02:32→20:59)
[2018-04-15 03:05] LABS: BASOPHILS % (AUTO) 0.2 % (0-1); EOSINOPHILS # (AUTO) 0.2 X10'3 (0-0.9); HEMATOCRIT 28.2 % (42.0-52.0); HEMOGLOBIN 9.4 g/dl (14.0-17.9); LYMPHOCYTES # (AUTO) 0.5 X10'3 (1.1-4.8); LYMPHOCYTES % (AUTO) 8.3 % (21-51); MEAN CORPUSCULAR HEMOGLOBIN 29.5 PG (27.0-31.0); MEAN CORPUSCULAR HGB CONC 33.2 % (33.0-36.5); MEAN PLATELET VOLUME 9.3 FL (7.4-10.4); MONOCYTES # (AUTO) 0.4 X10'3 (0-0.9); MONOCYTES % (AUTO) 6.3 % (2-12); NEUTROPHILS # (AUTO) 4.9 X10'3 (1.8-7.7); NEUTROPHILS % (AUTO) 81.2 % (42-75); PLATELET COUNT 227 X10'3 (140-440); RED BLOOD COUNT 3.17 X10'6 (4.70-6.10)
[2018-04-15 03:19] LABS: ALANINE AMINOTRANSFERASE 15 U/L (12-78); ALBUMIN 3.3 G/DL (3.4-5.0); ALKALINE PHOSPHATASE 97 IU/L (46-116); ANION GAP 6 (8-16); ASPARTATE AMINO TRANSFERASE 20 U/L (10-37); BILIRUBIN,TOTAL 1.1 MG/DL (0.1-1.0); BLOOD UREA NITROGEN 45 MG/DL (7-18); BUN/CREATININE RATIO 35.2 (5.4-32.0); CALCIUM 8.2 MG/DL (8.5-10.1); CHLORIDE 96 MMOL/L (99-107); CREATININE 1.28 MG/DL (0.60-1.10); GLUCOSE 115 MG/DL (70-104); MAGNESIUM 1.5 MG/DL (1.5-2.4); PHOSPHORUS 2.3 MG/DL (2.3-4.5); POTASSIUM 3.2 MMOL/L (3.5-5.1); SODIUM 136 MMOL/L (135-145); TOTAL CARBON DIOXIDE 34.3 MMOL/L (24-32); TOTAL PROTEIN 6.6 G/DL (6.4-8.2); eGFR 57 ML/MIN
[2018-04-15 03:26] LABS: ABG BASE EXCESS 7.7 mmol/L (-2.0-3.0); ABG HCO3 32.2 mmol/L (22.0-26.0); ABG OXYGEN SATURATION 93.4 % (95-98); ABG PCO2 (T) 47.1 mmHg (35.0-48.0); ABG PH (T) 7.456 (7.350-7.450); ABG PO2 (T) 71.8 mmHg (83-108); FCOHb 0.9 % (0.5-1.5); FMetHb 0.1 % (0.3-1.12); FO2Hb 92.5 % (94-100); MINUTE VOLUME 11 L/min; PATIENT TEMPERATURE 37.9; PEEP 5 cm H2O; RESPIRATORY RATE 10 b/min; RESPIRATORY RATE (OBSERVED) 19 b/min; TIDAL VOLUME 500 mL; TOTAL HEMOGLOBIN 10.3 G/dl (14.0-18.0)
[2018-04-15] MEDS: potassium Cl 40MEQ/250ML bag 250 ML IV PRN (03:30)
[2018-04-15 03:33] LABS: INR 1.3 INR; PARTIAL THROMBOPLASTIN TIME 29 SECONDS (22-32); PROTHROMBIN TIME 13.4 SECONDS (9.0-12.0)
[2018-04-15 06:24] LABS: BASOPHILS % (AUTO) 0.4 % (0-1); EOSINOPHILS # (AUTO) 0.2 X10'3 (0-0.9); EOSINOPHILS % (AUTO) 4.4 % (0-6); HEMATOCRIT 28.4 % (42.0-52.0); HEMOGLOBIN 9.3 g/dl (14.0-17.9); LYMPHOCYTES # (AUTO) 0.5 X10'3 (1.1-4.8); LYMPHOCYTES % (AUTO) 8.3 % (21-51); MEAN CORPUSCULAR HEMOGLOBIN 29.4 PG (27.0-31.0); MEAN CORPUSCULAR HGB CONC 32.9 % (33.0-36.5); MEAN CORPUSCULAR VOLUME 89.4 FL (78-98); MONOCYTES # (AUTO) 0.4 X10'3 (0-0.9); MONOCYTES % (AUTO) 7.2 % (2-12); NEUTROPHILS # (AUTO) 4.4 X10'3 (1.8-7.7); NEUTROPHILS % (AUTO) 79.7 % (42-75); PLATELET COUNT 224 X10'3 (140-440); RED BLOOD COUNT 3.17 X10'6 (4.70-6.10); RED CELL DISTRIBUTION WIDTH 16.9 % (11.5-14.5); WHITE BLOOD COUNT 5.6 X10'3 (4.5-11.0)
[2018-04-15 06:38] LABS: INR 1.3 INR; PARTIAL THROMBOPLASTIN TIME 29 SECONDS (22-32); PROTHROMBIN TIME 13.8 SECONDS (9.0-12.0)
[2018-04-15 06:44] LABS: ALANINE AMINOTRANSFERASE 24 U/L (12-78); ALBUMIN 3.1 G/DL (3.4-5.0); ALKALINE PHOSPHATASE 89 IU/L (46-116); ANION GAP 9 (8-16); ASPARTATE AMINO TRANSFERASE 19 U/L (10-37); BILIRUBIN,TOTAL 1.1 MG/DL (0.1-1.0); BLOOD UREA NITROGEN 44 MG/DL (7-18); BUN/CREATININE RATIO 33.3 (5.4-32.0); CALCIUM 8.3 MG/DL (8.5-10.1); CHLORIDE 96 MMOL/L (99-107); CREATININE 1.32 MG/DL (0.60-1.10); GLUCOSE 81 MG/DL (70-104); MAGNESIUM 1.4 MG/DL (1.5-2.4); PHOSPHORUS 2.1 MG/DL (2.3-4.5); POTASSIUM 3.6 MMOL/L (3.5-5.1); SODIUM 137 MMOL/L (135-145); TOTAL CARBON DIOXIDE 32.1 MMOL/L (24-32); TOTAL PROTEIN 6.3 G/DL (6.4-8.2); eGFR 55 ML/MIN
[2018-04-15] MEDS: carVEDilol 12.5mg tablet PO SCH ×2 (08:00→19:35)
[2018-04-15] MEDS: atorvastatin 20mg tablet PO SCH (08:00)
[2018-04-15] MEDS: levoTHYROXINE sod inj. 100mcg/5 ml vial IV SCH (08:21)
[2018-04-15] MEDS: linezolid 600mg/300ml PREMIX 300 ML IV SCH ×2 (08:22→19:33)
[2018-04-15] MEDS: nystatin 15 GM powder TP SCH ×3 (08:23→21:05)
[2018-04-15] MEDS: magnesium 1gm/100ml D5W IVPB 100 ML IV PRN (09:45)
[2018-04-15 13:26] LABS: HEMATOCRIT 27.8 % (42.0-52.0); HEMOGLOBIN 9.4 g/dl (14.0-17.9); MEAN CORPUSCULAR HEMOGLOBIN 29.9 PG (27.0-31.0); MEAN CORPUSCULAR HGB CONC 33.9 % (33.0-36.5); MEAN CORPUSCULAR VOLUME 88.4 FL (78-98); MEAN PLATELET VOLUME 8.7 FL (7.4-10.4); PLATELET COUNT 228 X10'3 (140-440); RED BLOOD COUNT 3.15 X10'6 (4.70-6.10); RED CELL DISTRIBUTION WIDTH 17.4 % (11.5-14.5); WHITE BLOOD COUNT 6.1 X10'3 (4.5-11.0)
[2018-04-15 13:49] LABS: INR 1.3 INR; PARTIAL THROMBOPLASTIN TIME 29 SECONDS (22-32); PROTHROMBIN TIME 13.2 SECONDS (9.0-12.0)
[2018-04-15 13:53] LABS: ALANINE AMINOTRANSFERASE 26 U/L (12-78); ALBUMIN 3.2 G/DL (3.4-5.0); ALBUMIN/GLOBULIN RATIO 0.9 (1.1-1.5); ALKALINE PHOSPHATASE 97 IU/L (46-116); ANION GAP 6 (8-16); ASPARTATE AMINO TRANSFERASE 27 U/L (10-37); BILIRUBIN,TOTAL 1.1 MG/DL (0.1-1.0); BLOOD UREA NITROGEN 45 MG/DL (7-18); BUN/CREATININE RATIO 37.5 (5.4-32.0); CALCIUM 8.2 MG/DL (8.5-10.1); CHLORIDE 95 MMOL/L (99-107); GLUCOSE 203 MG/DL (70-104); MAGNESIUM 1.7 MG/DL (1.5-2.4); POTASSIUM 3.6 MMOL/L (3.5-5.1); SODIUM 134 MMOL/L (135-145); TOTAL CARBON DIOXIDE 33.2 MMOL/L (24-32); TOTAL PROTEIN 6.6 G/DL (6.4-8.2); eGFR 61 ML/MIN
[2018-04-15] MEDS: octreotide inj. 1,250 MCG in normal saline 250ml IV soln 243.75 ML IV SCH (16:19)
[2018-04-15 19:28] LABS: HEMATOCRIT 28.1 % (42.0-52.0); HEMOGLOBIN 9.4 g/dl (14.0-17.9); MEAN CORPUSCULAR HEMOGLOBIN 29.7 PG (27.0-31.0); MEAN CORPUSCULAR HGB CONC 33.3 % (33.0-36.5); MEAN CORPUSCULAR VOLUME 89.2 FL (78-98); MEAN PLATELET VOLUME 9.1 FL (7.4-10.4); PLATELET COUNT 254 X10'3 (140-440); RED BLOOD COUNT 3.15 X10'6 (4.70-6.10); RED CELL DISTRIBUTION WIDTH 16.9 % (11.5-14.5); WHITE BLOOD COUNT 5.9 X10'3 (4.5-11.0)
[2018-04-15 19:49] LABS: ALANINE AMINOTRANSFERASE 30 U/L (12-78); ALBUMIN 3.3 G/DL (3.4-5.0); ALKALINE PHOSPHATASE 109 IU/L (46-116); ANION GAP 5 (8-16); ASPARTATE AMINO TRANSFERASE 29 U/L (10-37); BILIRUBIN,TOTAL 1.1 MG/DL (0.1-1.0); BLOOD UREA NITROGEN 45 MG/DL (7-18); BUN/CREATININE RATIO 36.3 (5.4-32.0); CALCIUM 8.3 MG/DL (8.5-10.1); CHLORIDE 94 MMOL/L (99-107); CREATININE 1.24 MG/DL (0.60-1.10); GLUCOSE 192 MG/DL (70-104); MAGNESIUM 1.6 MG/DL (1.5-2.4); PHOSPHORUS 2.7 MG/DL (2.3-4.5); POTASSIUM 3.5 MMOL/L (3.5-5.1); SODIUM 134 MMOL/L (135-145); TOTAL CARBON DIOXIDE 34.8 MMOL/L (24-32); TOTAL PROTEIN 6.7 G/DL (6.4-8.2); eGFR 59 ML/MIN
[2018-04-15] MEDS: [UNRECOGNIZED DRUG - OTHER] IV SCH ×9 (21:21)
[2018-04-15] MEDS: CALCIUM GLUCONATE IV SCH ×9 (21:21)
[2018-04-15] MEDS: MAGNESIUM SULF IV SCH ×9 (21:21)
[2018-04-16] VITALS (24 sets, daily range): BP systolic 116–163; BP diastolic 54–79
[2018-04-16] MEDS: mineral oil/petrolatum ophthal oint EACHEYE PRN ×2 (00:36→21:02)
[2018-04-16] MEDS: furosemide 40mg/4ml inj IV SCH ×3 (00:36→16:10)
[2018-04-16] MEDS: pantoprazole 40MG/NS 100ML BAG 100 ML IV SCH ×5 (00:47→19:37)
[2018-04-16] MEDS: piperacillin/tazo 3.375gm/50ml 50 ML IV SCH ×4 (01:42→19:13)
[2018-04-16] MEDS: insulin regular, human vial - multi-dose SQ SCH ×4 (01:58→19:21)
[2018-04-16] MEDS: ipratropium/albuterol 3ml nebule NEB SCH ×4 (02:30→20:00)
[2018-04-16] MEDS: albumin (human) 25% 100 ML IV solution IV SCH ×4 (02:56→21:00)
[2018-04-16 03:10] LABS: HEMATOCRIT 28.1 % (42.0-52.0); HEMOGLOBIN 9.3 g/dl (14.0-17.9); MEAN CORPUSCULAR HEMOGLOBIN 29.6 PG (27.0-31.0); MEAN CORPUSCULAR HGB CONC 33.1 % (33.0-36.5); MEAN CORPUSCULAR VOLUME 89.3 FL (78-98); MEAN PLATELET VOLUME 9.2 FL (7.4-10.4); PLATELET COUNT 275 X10'3 (140-440); RED BLOOD COUNT 3.14 X10'6 (4.70-6.10); RED CELL DISTRIBUTION WIDTH 16.6 % (11.5-14.5)
[2018-04-16 03:21] LABS: ABG BASE EXCESS 10.3 mmol/L (-2.0-3.0); ABG HCO3 35.4 mmol/L (22.0-26.0); ABG OXYGEN SATURATION 92.1 % (95-98); ABG PCO2 (T) 51.8 mmHg (35.0-48.0); ABG PH (T) 7.455 (7.350-7.450); ABG PO2 (T) 65.9 mmHg (83-108); FCOHb 0.6 % (0.5-1.5); FMetHb 0.1 % (0.3-1.12); FO2Hb 91.5 % (94-100); MINUTE VOLUME 9 L/min; PATIENT TEMPERATURE 37.7; PEEP 5 cm H2O; RESPIRATORY RATE 10 b/min; RESPIRATORY RATE (OBSERVED) 17 b/min; TIDAL VOLUME 500 mL; TOTAL HEMOGLOBIN 10.4 G/dl (14.0-18.0)
[2018-04-16 03:27] LABS: MAGNESIUM 1.6 MG/DL (1.5-2.4); PHOSPHORUS 2.9 MG/DL (2.3-4.5); PREALBUMIN 12.6 MG/DL (19-36); TRIGLYCERIDES 92 MG/DL (20-135)
[2018-04-16 03:46] LABS: ALBUMIN 3.3 G/DL (3.4-5.0); ANION GAP 5 (8-16); BLOOD UREA NITROGEN 45 MG/DL (7-18); BUN/CREATININE RATIO 38.5 (5.4-32.0); CALCIUM 8.5 MG/DL (8.5-10.1); CHLORIDE 96 MMOL/L (99-107); CREATININE 1.17 MG/DL (0.60-1.10); GLUCOSE 106 MG/DL (70-104); POTASSIUM 3.2 MMOL/L (3.5-5.1); SODIUM 135 MMOL/L (135-145); TOTAL CARBON DIOXIDE 34.3 MMOL/L (24-32); eGFR 63 ML/MIN
[2018-04-16] MEDS: potassium Cl 40MEQ/250ML bag 250 ML IV PRN ×2 (04:00→21:38)
[2018-04-16 04:33] LABS: UREA NITROGEN 24HR,URINE 31.8 GM/24HR (7-20)
[2018-04-16] MEDS: levoTHYROXINE sod inj. 100mcg/5 ml vial IV SCH (07:15)
[2018-04-16] MEDS: atorvastatin 20mg tablet PO SCH (07:53)
[2018-04-16] MEDS: carVEDilol 12.5mg tablet PO SCH ×2 (07:53→18:25)
[2018-04-16] MEDS: nystatin 15 GM powder TP SCH ×3 (07:54→21:01)
[2018-04-16 08:27] LABS: HEMATOCRIT 27.6 % (42.0-52.0); HEMOGLOBIN 9.3 g/dl (14.0-17.9); MEAN CORPUSCULAR HEMOGLOBIN 29.7 PG (27.0-31.0); MEAN CORPUSCULAR HGB CONC 33.7 % (33.0-36.5); MEAN CORPUSCULAR VOLUME 88.2 FL (78-98); MEAN PLATELET VOLUME 8.5 FL (7.4-10.4); PLATELET COUNT 286 X10'3 (140-440); RED BLOOD COUNT 3.13 X10'6 (4.70-6.10); RED CELL DISTRIBUTION WIDTH 17.1 % (11.5-14.5); WHITE BLOOD COUNT 5.9 X10'3 (4.5-11.0)
[2018-04-16] MEDS: linezolid 600mg/300ml PREMIX 300 ML IV SCH ×2 (08:31→19:48)
[2018-04-16 08:50] LABS: ALBUMIN 3.3 G/DL (3.4-5.0); ANION GAP 4 (8-16); BLOOD UREA NITROGEN 43 MG/DL (7-18); BUN/CREATININE RATIO 34.7 (5.4-32.0); CALCIUM 8.4 MG/DL (8.5-10.1); CHLORIDE 98 MMOL/L (99-107); CREATININE 1.24 MG/DL (0.60-1.10); GLUCOSE 95 MG/DL (70-104); POTASSIUM 3.6 MMOL/L (3.5-5.1); SODIUM 137 MMOL/L (135-145); TOTAL CARBON DIOXIDE 34.6 MMOL/L (24-32); eGFR 59 ML/MIN
[2018-04-16 13:20] LABS: HEMATOCRIT 26.8 % (42.0-52.0); HEMOGLOBIN 8.9 g/dl (14.0-17.9); MEAN CORPUSCULAR HEMOGLOBIN 29.8 PG (27.0-31.0); MEAN CORPUSCULAR HGB CONC 33.2 % (33.0-36.5); MEAN CORPUSCULAR VOLUME 89.9 FL (78-98); MEAN PLATELET VOLUME 9.1 FL (7.4-10.4); PLATELET COUNT 283 X10'3 (140-440); RED BLOOD COUNT 2.98 X10'6 (4.70-6.10); RED CELL DISTRIBUTION WIDTH 16.8 % (11.5-14.5); WHITE BLOOD COUNT 5.4 X10'3 (4.5-11.0)
[2018-04-16 13:30] LABS: ALBUMIN 3.3 G/DL (3.4-5.0); ANION GAP 7 (8-16); BLOOD UREA NITROGEN 43 MG/DL (7-18); BUN/CREATININE RATIO 32.8 (5.4-32.0); CALCIUM 8.6 MG/DL (8.5-10.1); CHLORIDE 97 MMOL/L (99-107); CREATININE 1.31 MG/DL (0.60-1.10); GLUCOSE 104 MG/DL (70-104); POTASSIUM 3.5 MMOL/L (3.5-5.1); SODIUM 137 MMOL/L (135-145); TOTAL CARBON DIOXIDE 33.2 MMOL/L (24-32); eGFR 55 ML/MIN
[2018-04-16 14:24] LABS: MAGNESIUM 1.7 MG/DL (1.5-2.4); PHOSPHORUS 3.3 MG/DL (2.3-4.5)
[2018-04-16] MEDS: octreotide inj. 1,250 MCG in normal saline 250ml IV soln 243.75 ML IV SCH (14:49)
[2018-04-16] MEDS: lactobacillus rhamnosus 10,000 MMU CELLS/CAPSULE PO SCH (18:24)
[2018-04-16 19:24] LABS: HEMATOCRIT 27.3 % (42.0-52.0); HEMOGLOBIN 9.2 g/dl (14.0-17.9); MEAN CORPUSCULAR HEMOGLOBIN 30.1 PG (27.0-31.0); MEAN CORPUSCULAR HGB CONC 33.6 % (33.0-36.5); MEAN CORPUSCULAR VOLUME 89.6 FL (78-98); MEAN PLATELET VOLUME 8.8 FL (7.4-10.4); PLATELET COUNT 312 X10'3 (140-440); RED BLOOD COUNT 3.05 X10'6 (4.70-6.10); WHITE BLOOD COUNT 5.7 X10'3 (4.5-11.0)
[2018-04-16 19:35] LABS: MAGNESIUM 1.7 MG/DL (1.5-2.4); PHOSPHORUS 3.6 MG/DL (2.3-4.5); POTASSIUM 3.4 MMOL/L (3.5-5.1)
[2018-04-16] MEDS: CALCIUM GLUCONATE IV SCH ×9 (21:33)
[2018-04-16] MEDS: MAGNESIUM SULF IV SCH ×9 (21:33)
[2018-04-16] MEDS: [UNRECOGNIZED DRUG - OTHER] IV SCH ×9 (21:33)
[2018-04-17] VITALS (24 sets, daily range): BP systolic 116–174; BP diastolic 52–87
[2018-04-17] MEDS: furosemide 40mg/4ml inj IV SCH ×3 (00:01→16:27)
[2018-04-17] MEDS: pantoprazole 40MG/NS 100ML BAG 100 ML IV SCH ×5 (01:04→21:37)
[2018-04-17] MEDS: piperacillin/tazo 3.375gm/50ml 50 ML IV SCH ×4 (01:07→20:41)
[2018-04-17] MEDS: ipratropium/albuterol 3ml nebule NEB SCH ×4 (01:56→20:44)
[2018-04-17 02:03] LABS: MEAN CORPUSCULAR HEMOGLOBIN 29.7 PG (27.0-31.0); MEAN CORPUSCULAR HGB CONC 33.5 % (33.0-36.5); MEAN CORPUSCULAR VOLUME 88.7 FL (78-98); MEAN PLATELET VOLUME 8.9 FL (7.4-10.4); PLATELET COUNT 326 X10'3 (140-440); RED BLOOD COUNT 3.04 X10'6 (4.70-6.10); RED CELL DISTRIBUTION WIDTH 15.8 % (11.5-14.5); WHITE BLOOD COUNT 5.4 X10'3 (4.5-11.0)
[2018-04-17 02:08] LABS: ALANINE AMINOTRANSFERASE 58 U/L (12-78); ALBUMIN 3.5 G/DL (3.4-5.0); ALKALINE PHOSPHATASE 124 IU/L (46-116); ANION GAP 4 (8-16); ASPARTATE AMINO TRANSFERASE 58 U/L (10-37); BILIRUBIN,TOTAL 1.1 MG/DL (0.1-1.0); BLOOD UREA NITROGEN 44 MG/DL (7-18); BUN/CREATININE RATIO 35.8 (5.4-32.0); CALCIUM 8.4 MG/DL (8.5-10.1); CHLORIDE 97 MMOL/L (99-107); CREATININE 1.23 MG/DL (0.60-1.10); GLUCOSE 95 MG/DL (70-104); MAGNESIUM 1.7 MG/DL (1.5-2.4); PHOSPHORUS 3.8 MG/DL (2.3-4.5); POTASSIUM 3.8 MMOL/L (3.5-5.1); SODIUM 135 MMOL/L (135-145); TOTAL PROTEIN 6.9 G/DL (6.4-8.2); eGFR 60 ML/MIN
[2018-04-17] MEDS: albumin (human) 25% 100 ML IV solution IV SCH ×4 (02:12→20:03)
[2018-04-17] MEDS: insulin regular, human vial - multi-dose SQ SCH ×2 (02:16→08:29)
[2018-04-17] MEDS: midazolam 100mg in NS 100ml 100 ML IV PRN (02:25)
[2018-04-17 04:46] LABS: ABG BASE EXCESS 8.9 mmol/L (-2.0-3.0); ABG HCO3 33.7 mmol/L (22.0-26.0); ABG OXYGEN SATURATION 94.2 % (95-98); ABG PCO2 (T) 49.8 mmHg (35.0-48.0); ABG PH (T) 7.451 (7.350-7.450); ABG PO2 (T) 77.4 mmHg (83-108); FCOHb 0.3 % (0.5-1.5); FMetHb 0.2 % (0.3-1.12); FO2Hb 93.7 % (94-100); MINUTE VOLUME 7 L/min; PATIENT TEMPERATURE 37.9; PEEP 5 cm H2O; RESPIRATORY RATE 10 b/min; RESPIRATORY RATE (OBSERVED) 14 b/min; TIDAL VOLUME 500 mL; TOTAL HEMOGLOBIN 9.6 G/dl (14.0-18.0)
[2018-04-17] MEDS: levoTHYROXINE sod inj. 100mcg/5 ml vial IV SCH (07:24)
[2018-04-17] MEDS: morphine/NS 100mg/100ml bag 100 ML IV SCH ×2 (07:27→18:45)
[2018-04-17] MEDS: carVEDilol 12.5mg tablet PO SCH ×2 (07:39→20:05)
[2018-04-17] MEDS: nystatin 15 GM powder TP SCH ×3 (07:39→21:28)
[2018-04-17] MEDS: atorvastatin 20mg tablet PO SCH (07:39)
[2018-04-17] MEDS: lactobacillus rhamnosus 10,000 MMU CELLS/CAPSULE PO SCH ×2 (07:39→20:05)
[2018-04-17] MEDS: linezolid 600mg/300ml PREMIX 300 ML IV SCH ×2 (08:37→21:28)
[2018-04-17 08:40] LABS: HEMATOCRIT 25.6 % (42.0-52.0); HEMOGLOBIN 8.6 g/dl (14.0-17.9); MEAN CORPUSCULAR HEMOGLOBIN 29.9 PG (27.0-31.0); MEAN CORPUSCULAR HGB CONC 33.5 % (33.0-36.5); MEAN CORPUSCULAR VOLUME 89.4 FL (78-98); MEAN PLATELET VOLUME 8.5 FL (7.4-10.4); PLATELET COUNT 326 X10'3 (140-440); RED BLOOD COUNT 2.86 X10'6 (4.70-6.10); RED CELL DISTRIBUTION WIDTH 17.4 % (11.5-14.5)
[2018-04-17 08:43] LABS: MAGNESIUM 1.8 MG/DL (1.5-2.4); PHOSPHORUS 3.9 MG/DL (2.3-4.5); POTASSIUM 3.6 MMOL/L (3.5-5.1)
[2018-04-17 09:58] LABS: PLATELET COUNT 324 X10'3 (140-440)
[2018-04-17 10:09] LABS: CREATINE KINASE 67 U/L (39-308); TROPONIN I < 0.04 NG/ML (0.0-0.05)
[2018-04-17 11:00] LABS: D-DIMER 11.34 MG/L FEU (0-0.50); INR 1.3 INR; PARTIAL THROMBOPLASTIN TIME 29 SECONDS (22-32); PROTHROMBIN TIME 13.8 SECONDS (9.0-12.0)
[2018-04-17] MEDS: octreotide inj. 1,250 MCG in normal saline 250ml IV soln 243.75 ML IV SCH (14:56)
[2018-04-17 15:24] LABS: HEMATOCRIT 25.8 % (42.0-52.0); HEMOGLOBIN 8.7 g/dl (14.0-17.9); MEAN CORPUSCULAR HEMOGLOBIN 29.9 PG (27.0-31.0); MEAN CORPUSCULAR HGB CONC 33.6 % (33.0-36.5); MEAN CORPUSCULAR VOLUME 88.9 FL (78-98); MEAN PLATELET VOLUME 7.7 FL (7.4-10.4); PLATELET COUNT 326 X10'3 (140-440); RED BLOOD COUNT 2.91 X10'6 (4.70-6.10); RED CELL DISTRIBUTION WIDTH 17.1 % (11.5-14.5); WHITE BLOOD COUNT 5.2 X10'3 (4.5-11.0)
[2018-04-17 15:43] LABS: MAGNESIUM 1.7 MG/DL (1.5-2.4); PHOSPHORUS 4.1 MG/DL (2.3-4.5); POTASSIUM 3.5 MMOL/L (3.5-5.1)
[2018-04-17] MEDS ORDERED: Dextrose 10%-water IV solution 1,000 ML IV PRN (16:43)
[2018-04-17 21:52] LABS: HEMATOCRIT 24.8 % (42.0-52.0); HEMOGLOBIN 8.3 g/dl (14.0-17.9); MEAN CORPUSCULAR HEMOGLOBIN 29.9 PG (27.0-31.0); MEAN CORPUSCULAR HGB CONC 33.5 % (33.0-36.5); MEAN CORPUSCULAR VOLUME 89.2 FL (78-98); MEAN PLATELET VOLUME 8.3 FL (7.4-10.4); PLATELET COUNT 318 X10'3 (140-440); RED BLOOD COUNT 2.78 X10'6 (4.70-6.10); RED CELL DISTRIBUTION WIDTH 16.8 % (11.5-14.5); WHITE BLOOD COUNT 5.2 X10'3 (4.5-11.0)
[2018-04-18] VITALS (14 sets, daily range): BP systolic 114–190; BP diastolic 48–96
[2018-04-18] MEDS: furosemide 40mg/4ml inj IV SCH ×2 (00:06→08:11)
[2018-04-18] MEDS: albumin (human) 25% 100 ML IV solution IV SCH ×2 (01:45→08:11)
[2018-04-18] MEDS: piperacillin/tazo 3.375gm/50ml 50 ML IV SCH ×2 (01:45→07:39)
[2018-04-18 02:12] LABS: ALANINE AMINOTRANSFERASE 77 U/L (12-78); ALBUMIN 3.8 G/DL (3.4-5.0); ALBUMIN/GLOBULIN RATIO 1.2 (1.1-1.5); ALKALINE PHOSPHATASE 132 IU/L (46-116); ANION GAP 8 (8-16); ASPARTATE AMINO TRANSFERASE 54 U/L (10-37); BILIRUBIN,TOTAL 1.1 MG/DL (0.1-1.0); BLOOD UREA NITROGEN 41 MG/DL (7-18); BUN/CREATININE RATIO 33.1 (5.4-32.0); CALCIUM 8.3 MG/DL (8.5-10.1); CHLORIDE 98 MMOL/L (99-107); CREATININE 1.24 MG/DL (0.60-1.10); GLUCOSE 174 MG/DL (70-104); MAGNESIUM 1.6 MG/DL (1.5-2.4); PHOSPHORUS 3.4 MG/DL (2.3-4.5); POTASSIUM 3.4 MMOL/L (3.5-5.1); SODIUM 140 MMOL/L (135-145); TOTAL CARBON DIOXIDE 34.1 MMOL/L (24-32); TOTAL PROTEIN 7.1 G/DL (6.4-8.2); eGFR 59 ML/MIN
[2018-04-18 02:24] LABS: BASOPHILS % (AUTO) 0.3 % (0-1); EOSINOPHILS # (AUTO) 0.3 X10'3 (0-0.9); EOSINOPHILS % (AUTO) 5.4 % (0-6); HEMATOCRIT 26.5 % (42.0-52.0); HEMOGLOBIN 8.7 g/dl (14.0-17.9); LYMPHOCYTES # (AUTO) 0.6 X10'3 (1.1-4.8); LYMPHOCYTES % (AUTO) 10.9 % (21-51); MEAN CORPUSCULAR HEMOGLOBIN 29.4 PG (27.0-31.0); MEAN CORPUSCULAR HGB CONC 32.9 % (33.0-36.5); MEAN CORPUSCULAR VOLUME 89.4 FL (78-98); MEAN PLATELET VOLUME 8.7 FL (7.4-10.4); MONOCYTES # (AUTO) 0.4 X10'3 (0-0.9); MONOCYTES % (AUTO) 7.4 % (2-12); NEUTROPHILS # (AUTO) 4.1 X10'3 (1.8-7.7); PLATELET COUNT 353 X10'3 (140-440); RED BLOOD COUNT 2.96 X10'6 (4.70-6.10); RED CELL DISTRIBUTION WIDTH 16.4 % (11.5-14.5); WHITE BLOOD COUNT 5.4 X10'3 (4.5-11.0)
[2018-04-18] MEDS: ipratropium/albuterol 3ml nebule NEB SCH (02:37)
[2018-04-18] MEDS: pantoprazole 40MG/NS 100ML BAG 100 ML IV SCH ×3 (03:01→08:09)
[2018-04-18 03:45] LABS: ABG BASE EXCESS 11.1 mmol/L (-2.0-3.0); ABG OXYGEN SATURATION 92.6 % (95-98); ABG PCO2 (T) 58.6 mmHg (35.0-48.0); ABG PO2 (T) 67.1 mmHg (83-108); FCOHb 0.8 % (0.5-1.5); FLOW 1 L/min; FMetHb 0.3 % (0.3-1.12); FO2Hb 91.6 % (94-100); PATIENT TEMPERATURE 37.6; PEEP 5 cm H2O; RESPIRATORY RATE 10 b/min; TIDAL VOLUME 500 mL; TOTAL HEMOGLOBIN 9.5 G/dl (14.0-18.0)
[2018-04-18] MEDS ORDERED: potassium Cl 40MEQ/250ML bag 250 ML IV ONE (04:33)
[2018-04-18] MEDS: potassium Cl 40MEQ/250ML bag 250 ML IV PRN (04:44)
[2018-04-18] MEDS: midazolam 100mg in NS 100ml 100 ML IV PRN (05:46)
[2018-04-18] MEDS: linezolid 600mg/300ml PREMIX 300 ML IV SCH (08:09)
[2018-04-18] MEDS: carVEDilol 12.5mg tablet PO SCH (08:11)
[2018-04-18] MEDS: lactobacillus rhamnosus 10,000 MMU CELLS/CAPSULE PO SCH (08:11)
[2018-04-18] MEDS: nystatin 15 GM powder TP SCH ×2 (08:11→13:47)
[2018-04-18] MEDS: atorvastatin 20mg tablet PO SCH (08:11)
[2018-04-18] MEDS: levoTHYROXINE sod inj. 100mcg/5 ml vial IV SCH (08:12)
[2018-04-18 10:16] LABS: HEMATOCRIT 25.5 % (42.0-52.0); HEMOGLOBIN 8.5 g/dl (14.0-17.9); MEAN CORPUSCULAR HEMOGLOBIN 29.6 PG (27.0-31.0); MEAN CORPUSCULAR HGB CONC 33.2 % (33.0-36.5); MEAN CORPUSCULAR VOLUME 89.2 FL (78-98); MEAN PLATELET VOLUME 8.1 FL (7.4-10.4); PLATELET COUNT 334 X10'3 (140-440); RED BLOOD COUNT 2.86 X10'6 (4.70-6.10); WHITE BLOOD COUNT 5.2 X10'3 (4.5-11.0)
[2018-04-18] MEDS ORDERED: sodium ferric gluc complex inj 125 MG in normal saline 100ml IV soln 100 ML IV SCH (12:00)
== END 2018-04-18 15:17 | disposition expired | DRG 220 ==
LOC: ER 21:01 → ED HOLD 22:47 → CICU 2S 04-01 01:00 → ICU 2S 04-13 18:58
PROVIDERS: ADMIT Internal Medicine Critical Care Medicine; ATTEND Internal Medicine Critical Care Medicine
PROC: 30233L1 Transfusion of Nonautologous Fresh Plasma into Peripheral Vein, Percutaneous Approach (ICD-10-PCS; 2018-03-31)
PROC: 30233N1 Transfusion of Nonautologous Red Blood Cells into Peripheral Vein, Percutaneous Approach (ICD-10-PCS; 2018-03-31)
PROC: 30233R1 Transfusion of Nonautologous Platelets into Peripheral Vein, Percutaneous Approach (ICD-10-PCS; 2018-03-31)
PROC: 30233M1 Transfusion of Nonautologous Plasma Cryoprecipitate into Peripheral Vein, Percutaneous Approach (ICD-10-PCS; 2018-03-31)
PROC: 30233K1 Transfusion of Nonautologous Frozen Plasma into Peripheral Vein, Percutaneous Approach (ICD-10-PCS; 2018-03-31)
PROC: B32T1ZZ Computerized Tomography (CT Scan) of Left Pulmonary Artery using Low Osmolar Contrast (ICD-10-PCS; 2018-03-31)
PROC: B3201ZZ Computerized Tomography (CT Scan) of Thoracic Aorta using Low Osmolar Contrast (ICD-10-PCS; 2018-03-31)
PROC: B32S1ZZ Computerized Tomography (CT Scan) of Right Pulmonary Artery using Low Osmolar Contrast (ICD-10-PCS; 2018-03-31)
PROC: B4201ZZ Computerized Tomography (CT Scan) of Abdominal Aorta using Low Osmolar Contrast (ICD-10-PCS; 2018-03-31)
PROC: B4241ZZ Computerized Tomography (CT Scan) of Superior Mesenteric Artery using Low Osmolar Contrast (ICD-10-PCS; 2018-03-31)
PROC: B4281ZZ Computerized Tomography (CT Scan) of Bilateral Renal Arteries using Low Osmolar Contrast (ICD-10-PCS; 2018-03-31)
PROC: B4211ZZ Computerized Tomography (CT Scan) of Celiac Artery using Low Osmolar Contrast (ICD-10-PCS; 2018-03-31)
PROC: 0D9670Z Drainage of Stomach with Drainage Device, Via Natural or Artificial Opening (ICD-10-PCS; 2018-03-31)
PROC: 02HV33Z Insertion of Infusion Device into Superior Vena Cava, Percutaneous Approach (ICD-10-PCS; 2018-03-31)
PROC: B548ZZA Ultrasonography of Superior Vena Cava, Guidance (ICD-10-PCS; 2018-03-31)
PROC: 0BH17EZ Insertion of Endotracheal Airway into Trachea, Via Natural or Artificial Opening (ICD-10-PCS; 2018-03-31)
PROC: 5A1935Z Respiratory Ventilation, Less than 24 Consecutive Hours (ICD-10-PCS; 2018-03-31)
PROC: 0DJ08ZZ Inspection of Upper Intestinal Tract, Via Natural or Artificial Opening Endoscopic (ICD-10-PCS; 2018-04-01)
PROC: CD271ZZ Tomographic (Tomo) Nuclear Medicine Imaging of Gastrointestinal Tract using Technetium 99m (Tc-99m) (ICD-10-PCS; 2018-04-03)
PROC: B4151ZZ Fluoroscopy of Inferior Mesenteric Artery using Low Osmolar Contrast (ICD-10-PCS; 2018-04-03)
PROC: B4141ZZ Fluoroscopy of Superior Mesenteric Artery using Low Osmolar Contrast (ICD-10-PCS; 2018-04-03)
PROC: 0DJ08ZZ Inspection of Upper Intestinal Tract, Via Natural or Artificial Opening Endoscopic (ICD-10-PCS; 2018-04-03)
PROC: 0W3P8ZZ Control Bleeding in Gastrointestinal Tract, Via Natural or Artificial Opening Endoscopic (ICD-10-PCS; 2018-04-03)
PROC: 0DN Gastrointestinal System, Release (ICD-10-PCS; principal; 2018-04-03 15:00)
PROC: B4121ZZ Fluoroscopy of Hepatic Artery using Low Osmolar Contrast (ICD-10-PCS; 2018-04-05)
PROC: B4141ZZ Fluoroscopy of Superior Mesenteric Artery using Low Osmolar Contrast (ICD-10-PCS; 2018-04-05)
PROC: B4131ZZ Fluoroscopy of Splenic Arteries using Low Osmolar Contrast (ICD-10-PCS; 2018-04-05)
PROC: CD271ZZ Tomographic (Tomo) Nuclear Medicine Imaging of Gastrointestinal Tract using Technetium 99m (Tc-99m) (ICD-10-PCS; 2018-04-05)
PROC: 0DJ08ZZ Inspection of Upper Intestinal Tract, Via Natural or Artificial Opening Endoscopic (ICD-10-PCS; 2018-04-06)
PROC: 5A1955Z Respiratory Ventilation, Greater than 96 Consecutive Hours (ICD-10-PCS; 2018-04-07)
PROC: 0DB64ZZ Excision of Stomach, Percutaneous Endoscopic Approach (ICD-10-PCS; 2018-04-07)
PROC: 0DQ64ZZ Repair Stomach, Percutaneous Endoscopic Approach (ICD-10-PCS; 2018-04-07)
PROC: 0DHA3UZ Insertion of Feeding Device into Jejunum, Percutaneous Approach (ICD-10-PCS; 2018-04-07)
PROC: 04V33DZ Restriction of Hepatic Artery with Intraluminal Device, Percutaneous Approach (ICD-10-PCS; 2018-04-09)
PROC: CD271ZZ Tomographic (Tomo) Nuclear Medicine Imaging of Gastrointestinal Tract using Technetium 99m (Tc-99m) (ICD-10-PCS; 2018-04-09)
PROC: B4201ZZ Computerized Tomography (CT Scan) of Abdominal Aorta using Low Osmolar Contrast (ICD-10-PCS; 2018-04-09)
PROC: B4241ZZ Computerized Tomography (CT Scan) of Superior Mesenteric Artery using Low Osmolar Contrast (ICD-10-PCS; 2018-04-09)
PROC: B4281ZZ Computerized Tomography (CT Scan) of Bilateral Renal Arteries using Low Osmolar Contrast (ICD-10-PCS; 2018-04-09)
PROC: B41J1ZZ Fluoroscopy of Other Lower Arteries using Low Osmolar Contrast (ICD-10-PCS; 2018-04-09)
PROC: B4121ZZ Fluoroscopy of Hepatic Artery using Low Osmolar Contrast (ICD-10-PCS; 2018-04-09)
PROC: 02HV33Z Insertion of Infusion Device into Superior Vena Cava, Percutaneous Approach (ICD-10-PCS; 2018-04-18)
PROC: B548ZZA Ultrasonography of Superior Vena Cava, Guidance (ICD-10-PCS; 2018-04-18)
DX: K29.71 Gastritis, unspecified, with bleeding (principal); I21.4 Non-ST elevation (NSTEMI) myocardial infarction; J96.00 Acute respiratory failure, unspecified whether with hypoxia or hypercapnia; R57.0 Cardiogenic shock; R57.1 Hypovolemic shock; J18.9 Pneumonia, unspecified organism; G93.41 Metabolic encephalopathy; D50.0 Iron deficiency anemia secondary to blood loss (chronic); K25.4 Chronic or unspecified gastric ulcer with hemorrhage; E87.2 Acidosis; E11.9 Type 2 diabetes mellitus without complications; E78.00 Pure hypercholesterolemia, unspecified; E78.5 Hyperlipidemia, unspecified; M19.90 Unspecified osteoarthritis, unspecified site; K66.0 Peritoneal adhesions (postprocedural) (postinfection); M54.9 Dorsalgia, unspecified; G89.29 Other chronic pain; I10 Essential (primary) hypertension; Z51.5 Encounter for palliative care; Z83.3 Family history of diabetes mellitus; Z93.4 Other artificial openings of gastrointestinal tract status; Z79.899 Other long term (current) drug therapy; Z90.49 Acquired absence of other specified parts of digestive tract
CPT/HCPCS: 36218; 36245; 36246; 36247; 36415; 36556; 36569; 36600; 37244; 71045; 71275; 74018; 74174; 74175; 75726; 76937; 78278; 80047; 80048; 80053; 81001; 82272; 82330; 82550; 82803; 82810; 82948; 83540; 83550; 83605; 83735; 84100; 84132; 84134; 84145; 84439; 84443; 84478; 84484; 84560; 85018; 85025; 85027; 85379; 85384; 85576; 85610; 85730; 86870; 86885; 86900; 86901; 86920; 86922; 87040; 87070; 93005; 93306; 94002; 94003; 94640; 94760; 96374; 97110; 97116; 97162; 97530; 99291; A4310; A4333; A4421; A4620; A4649; A6209; A6212; A6213; A6219; A6222; A6243; A6251; A6253; A6255; A6257; A6258; A6446; A6449; A7000; A7015; A7526; A9560; C1751; C1758; C1760; C1769; C1894; C9113; G0269; G0500; J0131; J0171; J0461; J0610; J0694; J0696; J1170; J1610; J1642; J1644; J1815; J1940; J1956; J2001; J2020; J2250; J2270; J2354; J2370; J2405; J2543; J2597; J2916; J3010; J3430; J3475; J3480; J3490; J7030; J7040; J7060; J7070; J7120; P9012; P9016; P9035; P9045; P9047; P9059; Q9967